=== PATIENT | female | born 1970 | race Caucasian/White ===

== ENCOUNTER → 2024-01-20 | Outpatient (CLI) | payer OTHER, SELFPAY ==
[2024-01-26 14:09] LABS: Age Gdln ACOG Testing 30-65 (.); HPV APTIMA, High Risk Negative (Negative)
[2024-01-26 15:52] LABS: HPV Reflexed? YES, CHARGE PATIENT
== END | disposition home or self-care (01) ==
LOC: LABSPEC 15:48
PROVIDERS: PCP Family Medicine; Referring Provider Family Medicine; Visit Provider Family Medicine
DX: Z12.4 Encounter for screening for malignant neoplasm of cervix (principal)
CPT/HCPCS: 87624; 88175; G0145

== ENCOUNTER → 2024-07-18 | Outpatient (CLI) | payer OTHER, SELFPAY ==
[2024-07-18 12:11] LABS: Absolute Lymphocyte Count 1.85 X10^3/uL (0.83-4.51); Absolute Neutrophil Count 4.3 X10^3/uL (2.0-7.7); Basophil# 0.04 X10^3/uL; Basophil% 0.6 % (0-1); Eosinophil# 0.26 X10^3/uL; Eosinophils% 3.7 % (0-5); Hematocrit 33.1 % (37-47); Hemoglobin 9.7 g/dL (12.0-15.0); Lymphocyte # 1.85 X10^3/ul (0.83-4.51); Lymphocyte % 26.1 % (19-41); Mean Corp Hgb Conc 29.3 g/dL (32-36); Mean Corpuscular Hgb 21.6 pg (27.0-32.0); Mean Corpuscular Volume 73.7 fL (81-99); Mean Platelet Vol. 10.7 fl (6.2-12.0); Monocyte# 0.59 X10^3/uL; Monocyte% 8.3 % (0-10); NRBC Flagged by Analyzer 0 % (0-5); Neutrophil # 4.34 X10^3/uL (2.7-7.7); POSITIVE MORPHOLOGY YES; Platelet Count 338 K/mm3 (150-450); RBC Distribution Width CV 21.7 % (11.6-14.6); RBC Distribution Width SD 57.1 fl (35.1-43.9); Red Blood Count 4.49 M/mm3 (4.2-5.4); White Blood Count 7.1 K/mm3 (4.4-11.0)
[2024-07-18 12:17] LABS: Differential Indicated SCAN CRITERIA MET
[2024-07-18 12:47] LABS: Anisocytosis 2+; Differential Comment SCANNED; Vitamin B12 346 pg/mL (211-911)
[2024-07-18 13:20] LABS: ALB/GLOB Ratio 0.8 RATIO (0.9-2.4); AST(SGOT) 19 U/L (15-37); Alanine Aminotransfer ALT/SGPT 28 U/L (13-56); Albumin, Serum 3.5 g/dL (3.2-5.0); Alkaline Phosphatase 147 U/L (45-117); Anion Gap 6 (5-15); BUN 10 mg/dL (7-18); BUN/Creat Ratio 13.3 RATIO (10-20); Calcium,Total 9.8 mg/dL (8.5-10.1); Chloride 107 mmol/L (98-107); Cholesterol 167 mg/dL (200); Creatinine, Serum 0.75 mg/dL (0.55-1.02); EST Glomerular Filtration Rate 85 mL/min (>60); Est Glom Filt Rate - Afr Amer 103 mL/min (>60); Estradiol < 11.0 pg/mL; Ferritin 4 ng/mL (8-252); Globulin 4.2 g/dL (2.2-4.2); Glucose 95 mg/dL (74-106); High Density Lipoprotein 43 mg/dL; Iron 24 ug/dL (50-170); Iron Binding Capacity,Total 426 ug/dL (250-450); PERCENT IRON SATURATION 5.6 % (15.0-55.0); Protein, Total 7.7 g/dL (6.4-8.2); Sodium Level 140 mmol/L (136-145); Thyroid Stim Hormone (TSH) 0.594 uIU/mL (0.358-3.740); Triglycerides 76 mg/dL; Very Low Density Lipoprotein 15 mg/dL (5-40)
[2024-07-19 08:13] LABS: PROGESTERONE 0.1 ng/mL (.)
== END | disposition home or self-care (01) ==
LOC: BFHLAB 10:41
PROVIDERS: PCP Family Medicine; Referring Provider Family Medicine; Visit Provider Family Medicine
DX: Z00.00 Encounter for general adult medical examination without abnormal findings (principal); N95.1 Menopausal and female climacteric states; D64.9 Anemia, unspecified
CPT/HCPCS: 36415; 80053; 80061; 82607; 82670; 82728; 82746; 83540; 83550; 84144; 84443; 85025

== ENCOUNTER 2024-10-06 08:46 | Day surgery (SDC) | payer OTHER, SELFPAY ==
[2024-10-06] VITALS (7 sets, daily range): BP systolic 109–152; BP diastolic 79–99; PULSE 63–85; RESP 16–18; TEMP 36.1–36.8; O2SAT 94–96; BMI 34.2
--- NOTE | 2024-10-06 09:03 | PCM.PRE.AN2 ---
ASA Classification* ASA Classification ASA Classification: 2 Assessment & Plan Anesthesia* Anesthesia Assessment Anesthesia Assessment: Discussed sedation and/or anesthesia options, risks, benefits, and alternatives with patient/parents/legal guardian/POA. Questions invited. The patient/parents/legal guardian/POA seems to understand and agrees to proceed with anesthesia plan. Reviewed the physical assessment, medical history, allergy history and patient home medications list prior to surgery/procedure/anesthetic and documented any changes. Performed airway and anesthesia risk assessments. Anesthesia Type Anesthesia Type: MAC Anesthesia Focused Assessment* Airway Assessment Mouth opens: >3 cm Mallampati Score: II Focused Labs Anesthesia Preop lab: CBC WBC 7.1 K/mm3 (4.4-11.0) 07/18/24 10:42 RBC 4.49 M/mm3 (4.2-5.4) 07/18/24 10:42 Hgb 9.7 g/dL (12.0-15.0) L 07/18/24 10:42 Hct 33.1 % (37-47) L 07/18/24 10:42 Plt Count 338 K/mm3 (150-450) 07/18/24 10:42 CHEMISTRY Potassium 4.0 mmol/L (3.5-5.1) 07/18/24 10:42 Sodium 140 mmol/L (136-145) 07/18/24 10:42 BUN 10 mg/dL (7-18) 07/18/24 10:42 Creatinine 0.75 mg/dL (0.55-1.02) 07/18/24 10:42 Glucose 95 mg/dL (74-106) 07/18/24 10:42 TSH 0.594 uIU/mL (0.358-3.740) 07/18/24 10:42 COAG Pre-Assessment Diagnosis/Proposed Procedure Planned Operative Procedure(s): EGD/CSCOPE Anesthesia History 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 When Was Last Pacemaker Check QUESTION #4 FULL TEXT: You/Your Family Experience fever (hyperthermia) with Anesthesia Last Oral Intake Last Oral intake: Last Oral Intake NPO since Meds taken in AM with sips of water? 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 Female Yes 10/04/24 11:16 HX of Motion Sickness No 10/04/24 11:16 HX of N/V After Surgery No 10/04/24 11:16 Non-Smoker Yes 10/04/24 11:16 Duration of Surgery greater No 10/04/24 11:16 than 60 minutes Number of Risk Factors 2 10/04/24 11:16 PONV Score Moderate Risk 10/04/24 11:16 Height & Weight Height & Weight: Anesthesia: Height & Weight Height 5 ft 7 in 08/16/24 08:53 Respiratory Assessment Respiratory Assessment - auto fleet maintenance manager: Respiratory Tract Infection Hx - 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 Has anyone observed you stop Yes 10/04/24 11:16 breathing during sleep? STOP Results Positive 10/04/24 11:16 QUESTION #5 FULL TEXT : Do you snore loudly (louder than talking or can be heard through closed doors)? 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 Specify any problems Hx of Preganancy in last 3 No 10/04/24 11:16 Months Nurse Filling Out Transfusion DSCHRIBER 10/04/24 11:16 & Questions: Date: 10/04/24 10/04/24 11:16 Time: 11:18 10/04/24 11:16 Patient unable to answer at this time (ie. confused, unrespo /Reproduction History /Reproductive History - auto fleet maintenance manager: /Reproductive Hx- auto fleet maintenance manager Hx Now No 10/04/24 11:16 Gestational Age (in weeks): EDC: Hx Hx Para Hx Section SAB No 10/04/24 11:16 PFSH Medical History Post-menopausal Wears contact lenses Depression Anxiety Anemia Back pain Injury of head and neck Gastric reflux Non-smoker Shortness of breath on exertion History of edema Arthritis Fatigue Home Medications ?Medication ?Instructions ?Recorded ?Last Taken ?Type ascorbic acid (vitamin C) 500 mg 1,000 mg PO DAILY 08/16/24 Unknown History capsule bupropion HCl 150 mg 24 hr tablet, 150 mg PO QAM 08/16/24 Unknown History extended release (Wellbutrin XL) ferrous sulfate 325 mg (65 mg 325 mg PO QDAY 08/16/24 09/30/24 History iron) tablet (Feosol) loratadine 10 mg tablet (Claritin) 10 mg PO DAILY PRN PRN allergy 08/16/24 Unknown History symptoms magnesium 200 mg tablet 200 mg PO QDAY 08/16/24 10/02/24 History Allergy/AdvReac Type Severity Reaction Status Date / Time Penicillins (PCN) Allergy Severe Swelling Verified 10/04/24 11:14 Sulfa (Sulfonamide Allergy Intermediate Other Verified 10/04/24 11:14 Antibiotics) Family History Father Heart disease Grandmother Heart disease Surgical History History of facial surgery Hx of wisdom tooth extraction History of dental surgery H/O foot surgery History of cholecystectomy Social History Smoking Status: Never smoker alcohol intake: never substance use type: does not use Review of Systems (Anesthesia) ROS Narrative System reviewed and no additional complaints, except as documented.
--- NOTE | 2024-10-06 09:40 | PCM.HP.BLA ---
History and Physical Date of Admission: 10/06/24 Intake Vital Signs 08/16/2408:53 Height 5 ft 7 in Weight: 225 lb BMI 35.2 BP 142/95 H Blood Pressure Location Lt brachial Position Sitting Respiration 17 Pulse 69 Pulse Source Monitor Temp 97 F L Temp Source Temporal Pulse Oximetry (%) 96 Oxygen Delivery Method room air Intake Visit Reasons: ANEMIA - RECTAL BLEEDING Chief Complaint: anemia, rectal bleeding Is patient in pain?: No Allergies Penicillins (PCN) Allergy (Severe, Verified 08/16/24 08:56) SwellingSulfa (Sulfonamide Antibiotics) Allergy (Intermediate, Verified 08/16/24 08:56) Other Medications ?Medication ?Instructions ?Recorded ?Confirmed ?Type ascorbic acid (vitamin C) 500 mg mg PO 08/16/24 08/16/24 History capsule bupropion HCl 150 mg 24 hr tablet, 150 mg PO QAM 08/16/24 08/16/24 History extended release (Wellbutrin XL) ferrous sulfate 325 mg (65 mg 325 mg PO QDAY 08/16/24 08/16/24 History iron) tablet (Feosol) loratadine 10 mg tablet (Claritin) 10 mg PO QDAY 08/16/24 08/16/24 History magnesium 200 mg tablet 200 mg PO QDAY 08/16/24 08/16/24 History PFSH Medical History (Updated 08/16/24 @ 08:49 by Brianda Jimenez) Acid reflux Arthritis Fatigue Surgical History (Updated 08/16/24 @ 08:50 by Brianda Jimenez) H/O foot surgery History of cholecystectomy Family History (Updated 08/16/24 @ 08:50 by Brianda Jimenez) Father Heart diseaseGrandmother Heart disease Social History (Updated 08/16/24 @ 08:53 by Brianda Jimenez) Smoking Status: Never smoker alcohol intake: never substance use type: does not use HPI HPI HPI: Patient is a 53-year-old female here with iron deficiency anemia. The patient has had anemia for several years. She has never had EGD or colonoscopy. She reports seeing gross blood in her stool occasionally but it is bright red and small in volume. She denies nausea or vomiting but does have postprandial pain and GERD. She does not take a PPI. ROS General General: Yes weight change and fatigue; No appetite, colon cancer, breast cancer or weakness HEENT HEENT: Yes eye surgery; No difficulty swallowing, eye injury, swollen glands or hoarseness Endo Endocrine: No thyroid disease, diabetes mellitus, thyroid cancer, Hair loss, heat intolerance or cold intolerance Skin Skin: No rash or changing moles Musc Musculoskeletal: Yes arthritis; No back problems, rheumatoid arthritis, gout or joint pain Cardio Cardiovascular: No murmur, pacemaker, heart disease, atrial fibrillation, high blood pressure, heart attack, heart stent, palpitations, shortness of breat with exertion or chest pain Psych Psychiatric: No depression, anxiety or hearing voices Resp Respiratory: No shortness of breath, Yes sleep apnea, No cough, No COPD, No asthma, No emphysema and No wheezing Gastro Gastrointestinal: No abdominal pain, No nausea or vomiting, No diarrhea, No constipation, Yes blood in stool, Yes acid reflux, Yes hemorrhoids, No ulcers, No gallbladder problem and Yes black,tarry stools Arturo Hematologic: No blood thinners, No blood disorders, No bleeding, No anemia and No blood clots Neuro Neurologic: No system reviewed and no additional complaints, except as documented, No as per HPI, No abnormal gait, No abnormal hearing, No abnormal movements, No abnormal speech, No behavioral changes, No burning sensations, No confusion, No convulsions, No disequilibrium, No dizziness, No localized weakness, No frequent falls, No headache(s), No lack of coordination, No loss of vision, No memory loss, Yes numbness, No other visual disturbances, No radicular pain, No restless legs, No sensory deficit, No syncope, Yes tingling, No tremor(s), No weakness and No other Exam Const General: cooperative Orientation: alert and oriented x3 HENAR Head: normal to inspection Neck Neck: normal visual inspection and full ROM Chest Chest palpation & inspection: normal inspection of the chest Resp Effort & Inspection: normal respiratory effort Auscultation: clear to auscultation bilaterally Cardio Rate: regular rate Rhythm: regular rhythm GI Inspection: non-distended Palpation: soft and nontender Skin General: no rashes or lesions noted Neuro General: patient alert and patient oriented x3 Extrem General: full ROM Psych Appearance: grossly normal Mental Status: mental status grossly normal Assessment and Plan Assessment and Plan (1) Anemia: Status: Acute Plan: Patient is having several issues including pain after eating as well as anemia. She is seeing gross blood in her stool as well. I recommended upper and lower endoscopy to evaluate. She has never had a colonoscopy in the past. I explained endoscopy in detail to the patient. I explained the risks including but not limited to stroke or heart attack with anesthesia, perforation of the GI tract, bleeding, infection. I explained that any of these could necessitate further emergency surgery. The patient understands and all questions were answered sufficiently. The patient wishes to proceed with procedure. Denys Carson MD Pager: [facility] [address] [place] [address] [address] [place] [address] Office: . I have examined the patient and the H&P has been reviewed. There are no clinical changes since date of exam.
--- NOTE | 2024-10-06 10:09 | OP.EGD_ITS ---
Patient Name: Katherine Hanson Procedure Date: 10/06/2024 9:40 AM Date of : 1970 Age: 53 Procedure: Upper GI endoscopy Indications: Epigastric abdominal pain, Heartburn Providers: Denys Carson MD Referring MD: Susan Pompa Medicines: Propofol per Anesthesia Patient Profile: This is a 53 year old female. Refer to note in patient chart for documentation of history and physical. Patient has symptoms. Complications: No immediate complications. Procedure: Pre-Anesthesia Assessment: - Prior to the procedure, a History and Physical was performed, and patient medications and allergies were reviewed. The patient's tolerance of previous anesthesia was also reviewed. The risks and benefits of the procedure and the sedation options and risks were discussed with the patient. All questions were answered, and informed consent was obtained. Prior Anticoagulants: The patient has taken no anticoagulant or antiplatelet agents. After reviewing the risks and benefits, the patient was deemed in satisfactory condition to undergo the procedure. After obtaining informed consent, the endoscope was passed under direct vision. Throughout the procedure, the patient's blood pressure, pulse, and oxygen saturations were monitored continuously. The Colonoscope was introduced through the mouth, and advanced to the second part of duodenum. The upper GI endoscopy was accomplished without difficulty. The patient tolerated the procedure well. Scope In: 9:50:34 AM Scope Out: 9:52:19 AM Total Procedure Duration Time 0 hours 1 minute 45 seconds Findings: The esophagus was normal. The stomach was normal. The examined duodenum was normal. Impression: - Normal esophagus. - Normal stomach. - Normal examined duodenum. - No specimens collected. Recommendation: - Discharge patient to home. - Resume previous diet. - Continue present medications. Procedure Code(s): --- Professional --- 23674, Esophagogastroduodenoscopy, flexible, transoral; diagnostic, including collection of specimen(s) by brushing or washing, when performed (separate procedure) Diagnosis Code(s): --- Professional --- R10.13, Epigastric pain R12, Heartburn CPT copyright 2021 [employer]. All rights reserved. The codes documented in this report are preliminary and upon trimmer sawyer review may be revised to meet current compliance requirements. Denys Carson MD 10/06/2024 10:09:07 AM This report has been signed electronically. Number of Addenda: 0 Note Initiated On: 10/06/2024 9:40 AM
--- NOTE | 2024-10-06 10:09 | OP.CCLET_ITS ---
10/06/2024 Susan Pompa [place] [id number] [address] Re : Upper GI endoscopy procedure for Katherine Wilson Valentin Dear Dr. Pompa This procedure was performed on Sunday, October 06, 2024. My impressions and recommendations are as follows: Impressions : - Normal esophagus. - Normal stomach. - Normal examined duodenum. - No specimens collected. Recommendations : - Discharge patient to home. - Resume previous diet. - Continue present medications. My findings are described in the full procedure note, which is enclosed. If I can be of further assistance, please feel free to contact me at Doctor phone number(s): , Work: . Sincerely, Denys Carson MD 10/06/2024 10:09:07 AM This report has been signed electronically.
--- NOTE | 2024-10-06 10:11 | OP.CCLET_ITS ---
10/06/2024 Susan Pompa [facility] [address] [address] Re : Colonoscopy procedure for Katherine Wilson Valentin Dear Dr. Pompa This procedure was performed on Sunday, October 06, 2024. My impressions and recommendations are as follows: Impressions : - The entire examined colon is normal on direct and retroflexion views. - No specimens collected. Recommendations : - Discharge patient to home. - Resume previous diet. - Continue present medications. - Repeat colonoscopy in 10 years for screening purposes. My findings are described in the full procedure note, which is enclosed. If I can be of further assistance, please feel free to contact me at Doctor phone number(s): , Work: . Sincerely, Denys Carson MD 10/06/2024 10:10:27 AM This report has been signed electronically.
--- NOTE | 2024-10-06 10:11 | OP.COLON_ITS ---
Patient Name: Katherine Hanson Procedure Date: 10/06/2024 9:52 AM Date of : 1970 Age: 53 Procedure: Colonoscopy Indications: Rectal bleeding Providers: Denys Carson MD Referring MD: Susan Pompa Medicines: Propofol per Anesthesia Patient Profile: This is a 53 year old female. Refer to note in patient chart for documentation of history and physical. Patient has symptoms. Last Colonoscopy: none. The patient's first colonoscopy is today. Complications: No immediate complications. Procedure: Pre-Anesthesia Assessment: - Prior to the procedure, a History and Physical was performed, and patient medications and allergies were reviewed. The patient's tolerance of previous anesthesia was also reviewed. The risks and benefits of the procedure and the sedation options and risks were discussed with the patient. All questions were answered, and informed consent was obtained. Prior Anticoagulants: The patient has taken no anticoagulant or antiplatelet agents. After reviewing the risks and benefits, the patient was deemed in satisfactory condition to undergo the procedure. - Prior to the procedure, a History and Physical was performed, and patient medications and allergies were reviewed. The patient's tolerance of previous anesthesia was also reviewed. The risks and benefits of the procedure and the sedation options and risks were discussed with the patient. All questions were answered, and informed consent was obtained. Prior Anticoagulants: The patient has taken no anticoagulant or antiplatelet agents. After reviewing the risks and benefits, the patient was deemed in satisfactory condition to undergo the procedure. After I obtained informed consent, the scope was passed under direct vision. Throughout the procedure, the patient's blood pressure, pulse, and oxygen saturations were monitored continuously. The Colonoscope was introduced through the anus and advanced to the cecum, identified by appendiceal orifice and ileocecal valve. The colonoscopy was performed without difficulty. The patient tolerated the procedure well. The quality of the bowel preparation was good. The ileocecal valve, appendiceal orifice, and rectum were photographed. Scope In: 9:53:23 AM Scope Withdrawal Time 0 hours 6 minutes 6 seconds Scope Out: 10:07:24 AM Total Procedure Duration Time 0 hours 14 minutes 1 second Findings: The entire examined colon appeared normal on direct and retroflexion views. Impression: - The entire examined colon is normal on direct and retroflexion views. - No specimens collected. Recommendation: - Discharge patient to home. - Resume previous diet. - Continue present medications. - Repeat colonoscopy in 10 years for screening purposes. Procedure Code(s): --- Professional --- 98604, Colonoscopy, flexible; diagnostic, including collection of specimen(s) by brushing or washing, when performed (separate procedure) Diagnosis Code(s): --- Professional --- K62.5, Hemorrhage of anus and rectum CPT copyright 2021 [employer]. All rights reserved. The codes documented in this report are preliminary and upon an/syq 13 nav/c2 operator review may be revised to meet current compliance requirements. Denys Carson MD 10/06/2024 10:10:27 AM This report has been signed electronically. Number of Addenda: 0 Note Initiated On: 10/06/2024 9:52 AM
--- NOTE | 2024-10-06 10:14 | PCM.POST.ANE ---
Anesthesia: Postop Eval I Current Vital Signs Temperature: 98 F Pulse Rate: 71 Blood Pressure: 109/79 Respiratory Rate: 16 Pulse Ox: 95 Oxygen Delivery Method: Room Air Assessment Airway patent: Yes Spontaneous unlabored respirations: Yes Mental status: Asleep nausea: No Vomiting: No Anesthesia Complication: No Fluid Hydration Crystalloid volume administer (ml): 60 Total IV fluid infused: 60 Progress Note Anesthesia document: Postop Eval 1 completed: Yes
--- NOTE | 2024-10-06 12:11 | PCM.POSTANE2 ---
Anesthesia Postop Eval I Sum Postop Eval Completion status Anesthesia document: Postop Eval 1 completed: Yes Anesthesia Postop Eval I Summary Anesthesia Postop Eval I Summary: Anesthesia Postop Eval I: Assessment Summary Airway patent Yes 10/06/24 10:15 [email or web address] Spontaneous unlabored Yes 10/06/24 10:15 [email or web address] respirations Mental status Asleep 10/06/24 10:15 [email or web address] nausea No 10/06/24 10:15 [email or web address] Vomiting No 10/06/24 10:15 [email or web address] Anesthesia Postop Eval I: Fluid Summary Crystalloid volume administer 60 10/06/24 10:15 [email or web address] (ml) Colloids volume administered ( ml) Blood Product volume administered (ml) Total IV fluid infused 60 10/06/24 10:15 [email or web address] Anesthesia Postop Eval I: Summary Notes Anesthesia Complication No 10/06/24 10:15 [email or web address] Anesthesia Complication Comment: Post-operative progress note Anesthesia: Postop Eval II Evaluation Mental status: Awake Pain Level: 0 nausea: No Vomiting: No
== END 2024-10-06 11:00 | disposition home or self-care (01) ==
PROVIDERS: PCP Family Medicine; Referring Provider Family Medicine; Visit Provider Surgery
PROC: 0DJD8ZZ Inspection of Lower Intestinal Tract, Via Natural or Artificial Opening Endoscopic (ICD-10-PCS; CPT 45378; principal; 2024-10-06 09:40)
DX: R10.13 Epigastric pain (principal); K21.9 Gastro-esophageal reflux disease without esophagitis; K62.5 Hemorrhage of anus and rectum; D50.9 Iron deficiency anemia, unspecified
CPT/HCPCS: 43235; 45378; A4216; J2405

== ENCOUNTER → 2025-01-02 | Outpatient (CLI) | payer OTHER, SELFPAY | END | disposition home or self-care (01) | LOC: LABSPEC 12:41 | PROVIDERS: PCP Family Medicine; Visit Provider Family Medicine | DX: R10.31 Right lower quadrant pain (principal) ==

== ENCOUNTER → 2025-01-04 | Outpatient (CLI) | payer OTHER, SELFPAY ==
[2025-01-04 17:52] LABS: Absolute Neutrophil Count 6.8 X10^3/uL (2.0-7.7); Basophil# 0.04 X10^3/uL; Basophil% 0.4 % (0-1); Eosinophil# 0.07 X10^3/uL; Eosinophils% 0.8 % (0-5); Hematocrit 41.1 % (37-47); Hemoglobin 13.2 g/dL (12.0-15.0); Lymphocyte % 18.5 % (19-41); Mean Corp Hgb Conc 32.1 g/dL (32-36); Mean Corpuscular Volume 80.9 fL (81-99); Mean Platelet Vol. 10.5 fl (6.2-12.0); Monocyte# 0.58 X10^3/uL; Monocyte% 6.3 % (0-10); NRBC Flagged by Analyzer 0 % (0-5); Neutrophil # 6.79 X10^3/uL (2.7-7.7); Neutrophil % 73.8 % (47-70); Platelet Count 322 K/mm3 (150-450); RBC Distribution Width CV 17.3 % (11.6-14.6); RBC Distribution Width SD 51.1 fl (35.1-43.9); Red Blood Count 5.08 M/mm3 (4.2-5.4); White Blood Count 9.2 K/mm3 (4.4-11.0)
[2025-01-04 18:31] LABS: Ferritin 16 ng/mL (22-378); Iron 24 ug/dL (50-170); Iron Binding Capacity,Total 319 ug/dL (250-450); Iron Binding Capacity,Unsat 295 ug/dL (228-428)
== END | disposition home or self-care (01) ==
LOC: BFHLAB 16:17
PROVIDERS: PCP Family Medicine; Visit Provider Family Medicine
DX: D50.9 Iron deficiency anemia, unspecified (principal); R10.31 Right lower quadrant pain
CPT/HCPCS: 36415; 82728; 83540; 83550; 85025; 87491; 87591

== ENCOUNTER → 2025-01-22 | Outpatient (CLI) | payer OTHER, SELFPAY ==
--- NOTE | 2025-01-22 08:23 | BI_ITS ---
EXAM: SCRN MAMM (CAD)W/ADAM BILAT 01/22/2025 CLINICAL HISTORY: F, Age 54 y/o , SCREENING TECHNIQUE: Bilateral screening digital breast tomosynthesis with 2D and 3D images. Computer aided detection. COMPARISON: Prior exam(s) dated 11/07/2019. FINDINGS: TISSUE DENSITY: The breast tissue is composed of scattered area of fibroglandular density. Bilateral Breast Mammographic Findings: There is a group of calcifications in the upper inner left breast at anterior depth. No significant masses, calcifications or other abnormalities are identified in the right breast. BI/SCRN MAMM (CAD)W/ADAM BILAT IMPRESSION: The group of calcifications in the upper inner left breast at anterior depth re quires further evaluation. Recommend diagnostic mammogram with spot magnification views. Right Breast: BIRADS 1 NEGATIVE. Left Breast: BIRADS 0 Incomplete: Need additional imaging evaluation and/or pr ior mammograms for comparison.. OVERALL FINAL ASSESSMENT: BIRADS 0 Incomplete: Need additional imaging evaluati on and/or prior mammograms for comparison.. RECOMMENDATION: Recommendation: Magnification views. A letter with findings and recommendations will be mailed to the patient. Reading Location: [id number]
== END | disposition home or self-care (01) ==
LOC: OPBI 08:22
PROVIDERS: PCP Family Medicine; Referring Provider Family Medicine; Visit Provider Family Medicine
DX: Z12.31 Encounter for screening mammogram for malignant neoplasm of breast (principal)
CPT/HCPCS: 77063; 77067

== ENCOUNTER → 2025-02-02 | Outpatient (CLI) | payer OTHER, SELFPAY ==
--- NOTE | 2025-02-02 14:25 | BI_ITS ---
EXAM: DIAG MAMM W/CAD, UNILAT 02/02/2025 CLINICAL HISTORY: 54-year-old female presents for left breast findings seen examination 01/22/2025. No family history of breast cancer. TECHNIQUE: Bilateral Diagnostic digital breast tomosynthesis with 2D and 3D images. Computer aided detection. COMPARISON: Prior exam(s) dated 01/22/2025, 11/07/2019. FINDINGS: TISSUE DENSITY: The breast tissue is composed of scattered area of fibroglandular density. Left breast Mammographic Findings: There is a small group of fine pleomorphic calcifications in the upper inner left breast at anterior depth, measuring up to 0.8 cm in span. BI/DIAG MAMM W/CAD, UNILAT IMPRESSION: The small group of fine pleomorphic calcifications in the upper inner left [address] at anterior depth requires further evaluation. Recommend tissue sampling with stereotactic/tomosynthesis guided core needle bi opsy. Left Breast: BIRADS 4C SUSPICIOUS ABNORMALITY-High suspicion for malignancy (5 0-95% likelihood of cancer). OVERALL FINAL ASSESSMENT: BIRADS 4C SUSPICIOUS ABNORMALITY-High suspicion for m alignancy (50-95% likelihood of cancer). RECOMMENDATION: Biopsy is recommended. A letter with findings and recommendations will be mailed to the patient. Reading Location: [id number]
== END | disposition home or self-care (01) ==
LOC: OPBI 14:21
PROVIDERS: PCP Family Medicine; Referring Provider Family Medicine; Visit Provider Family Medicine
DX: R92.1 Mammographic calcification found on diagnostic imaging of breast (principal)
CPT/HCPCS: 77065

== ENCOUNTER → 2025-02-12 | Outpatient (CLI) | payer OTHER, SELFPAY ==
--- NOTE | 2025-02-12 09:30 | BRBX_PTH ---
PATIENT: DELILAH GORDON LOC: [facility] U#:[id number] AGE/SX: 54/F ROOM: RE02/12/[address]: Dr. Denys Carson MD : 1970 BED: DIS: 02/12/2025 SPEC #: [id number] RECD: 02/12/25 11:08 STATUS: FIGUEROA REJeannette #: [id number] MENDOZA: 02/12/25 09:[address]: Denys Carson DEPT: SURGICAL PATHOLOGY RECD BY: Kulwant Ellison ENTERED: 02/12/25 11:08 SP TYPE: BREAST BX OTHR DR: Dr. Susan Pompa MD Tissues: A - Left breast, NOS Procedures: Immunohistochemical Stains Surgery Specimen Level IV IHC Stain ADDITIONAL HEADER OPERATION: Left breast stereotactic biopsy PRE-OP DIAGNOSIS: Left breast calcifications upper inner anterior depth TISSUE SUBMITTED: A- Left breast core tissue Ischemic Time: 2 minute Fixation Time: 10.5 hours MICROSCOPIC DIAGNOSIS A. Left breast, calcifications, core biopsy: * Atypical ductal hyperplasia. * Calcifications present. * IHC for CK5/6, calponin, ER, and p40 support the diagnosis - see Comment. COMMENT The slides/images were reviewed in intradepartmental consultation by Dr Stanford Paz and Dr Macrina Storey ([facility] pathology division, [facility]). MICROSCOPIC DESCRIPTION Slides are reviewed. All matched controls reacted appropriately. These tests were developed and their performance characteristics determined by [facility]. They may not have been cleared or approved by the U.S. Food and Drug Administration. The FDA has determined that such clearance or approval is not necessary.? The above immunohistochemical/dualISH?markers are ordered and reviewed by the Pathologist. GROSS DESCRIPTION A. Received in formalin in a container labeled with the patient's name, date of , and left are approximately 3 maldonado-yellow core biopsies of fibrofatty tissue ranging from 1.7 x 0.5 cm to 2.2 x 0.5 cm. There are multiple core biopsy fragments measuring 2.0 x 1.4 x 0.3 cm in aggregate. The specimen is submitted in toto as follows:A1-3. 1 core per cassetteA4. Core biopsy fragments Total formalin fixation time: Between 6 and 72 hours. [facility] 02-12-2025 CPT:64895,01644, 88103q4
--- NOTE | 2025-02-12 09:32 | PCM.OPRPT ---
Operative Report (Standard) Operative Information Date of Procedure: 02/12/25 Pre-Operative Diagnosis: Left breast microcalcifications Post-Operative Diagnosis: Same Surgery/Procedure Performed: Stereotactic guided left breast core needle biopsy with placement of clip production control coordinating clerk: No Type of Anesthesia: Local Procedure Start Time: : Procedure Stop Time: Select all DRAINS/GRAFTS/IMPLANTS that apply: None Estimated Blood Loss: 10 Specimen collected: Yes Description of specimen(s) removed: Left breast biopsy Description of surgery: Patient was brought to the stereotactic room and placed in the stereotactic table and the microcalcifications were localized with stereotactic views. The microcalcifications were targeted using the computer and then the needle was set up. The skin was prepped. The skin was injected with local anesthetic. A small veronica was made with a scalpel and the needle was placed into the breast and fired. Stereotactic images were once again obtained that showed that this was in good position. Next biopsies were obtained and the specimens were x-rayed. The specimen showed the microcalcifications. The clip was then placed into the breast and the needle was removed. Pressure was held to maintain hemostasis. Next a Steri-Strip and bandage were placed over the incision. Mammogram images were obtained after the biopsy. Surgical Findings: Left breast microcalcifications Complications Complications: No
== END | disposition home or self-care (01) ==
PROVIDERS: PCP Family Medicine; Referring Provider Surgery; Visit Provider Surgery
DX: N60.92 Unspecified benign mammary dysplasia of left breast (principal)
CPT/HCPCS: 19081; 88305; 88341; 88342

== ENCOUNTER → 2025-03-27 | Outpatient (CLI) | payer OTHER, SELFPAY | END | disposition home or self-care (01) | LOC: MTLAB 15:07 | PROVIDERS: PCP Family Medicine; Referring Provider Nurse Practitioner Family; Visit Provider Nurse Practitioner Family | DX: N39.0 Urinary tract infection, site not specified (principal) | CPT/HCPCS: 87086 ==

== ENCOUNTER 2025-03-28 09:58 | Day surgery (SDC) | payer OTHER, SELFPAY ==
[2025-03-28] VITALS (9 sets, daily range): BP systolic 142–159; BP diastolic 85–108; PULSE 67–89; RESP 16–18; TEMP 36.1–36.6; O2SAT 94–100; BMI 30.8
--- NOTE | 2025-03-28 10:16 | PCM.PRE.AN2 ---
ASA Classification* ASA Classification ASA Classification: 2 Assessment & Plan Anesthesia* Anesthesia Assessment Anesthesia Assessment: Discussed sedation and/or anesthesia options, risks, benefits, and alternatives with patient/parents/legal guardian/POA. Questions invited. The patient/parents/legal guardian/POA seems to understand and agrees to proceed with anesthesia plan. Reviewed the physical assessment, medical history, allergy history and patient home medications list prior to surgery/procedure/anesthetic and documented any changes. Performed airway and anesthesia risk assessments. Anesthesia Type Anesthesia Type: General Anesthesia Focused Assessment* Airway Assessment Mouth opens: >3 cm Mallampati Score: II Labs Anesthesia Preop lab: CBC WBC 9.2 K/mm3 (4.4-11.0) 01/04/25 16:19 01/04/25 RBC 5.08 M/mm3 (4.2-5.4) 01/04/25 16:19 01/04/25 Hgb 13.2 g/dL (12.0-15.0) 01/04/25 16:19 01/04/25 Hct 41.1 % (37-47) 01/04/25 16:19 01/04/25 Plt Count 322 K/mm3 (150-450) 01/04/25 16:19 01/04/25 CHEMISTRY Potassium 4.0 mmol/L (3.5-5.1) 07/18/24 10:42 07/18/24 Sodium 140 mmol/L (136-145) 07/18/24 10:42 07/18/24 BUN 10 mg/dL (7-18) 07/18/24 10:42 07/18/24 Creatinine 0.75 mg/dL (0.55-1.02) 07/18/24 10:42 07/18/24 Glucose 95 mg/dL (74-106) 07/18/24 10:42 07/18/24 TSH 0.594 uIU/mL (0.358-3.740) 07/18/24 10:42 07/18/24 COAG Pre-Assessment Diagnosis/Proposed Procedure Planned Operative Procedure(s): (L) Breast, Lumpectomy, NL left stereo wire localization lumpectomy Anesthesia History 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 When Was Last Pacemaker Check QUESTION #4 FULL TEXT: You/Your Family Experience fever (hyperthermia) with Anesthesia Last Oral Intake Last Oral intake: Last Oral Intake NPO since Meds taken in AM with sips of water? Meds patient instructed to take am of surgery PONV PONV - guitar instructor: PONV - guitar instructor Female Yes 03/14/25 15:04 HX of Motion Sickness No 03/14/25 15:04 HX of N/V After Surgery No 03/14/25 15:04 Non-Smoker Yes 03/14/25 15:04 Duration of Surgery greater No 03/14/25 15:04 than 60 minutes Number of Risk Factors 2 03/14/25 15:04 PONV Score Moderate Risk 03/14/25 15:04 Height & Weight Height & Weight: Anesthesia: Height & Weight Height 5 ft 7 in 03/02/25 10:23 Respiratory Assessment Respiratory Assessment - guitar instructor: Respiratory Tract Infection Hx - guitar instructor Hx Respiratory Tract Infection No 03/14/25 15:04 STOP Sleep Apnea STOP Sleep Apnea - guitar instructor: STOP Sleep Apnea - guitar instructor Hx Hypertension No 03/14/25 15:04 Hx Sleep Apnea No 03/14/25 15:04 CPAP BIPAP Do you snore loudly (louder No 03/14/25 15:04 than talking or can be heard Do you often feel tired/ No 03/14/25 15:04 fatigued/ sleepy during daytime? Has anyone observed you stop No 03/14/25 15:04 breathing during sleep? STOP Results Negative 03/14/25 15:04 QUESTION #5 FULL TEXT : Do you snore loudly (louder than talking or can be heard through closed doors)? Tobacco Use History Tobacco Use History - guitar instructor: Tobacco Use History - guitar instructor Tobacco Use Smoking Status Never smoker 03/14/25 15:04 Hx Tobacco Use No 03/14/25 15:04 Years Smoking Packs Smoked per Day Smoking Cessation Date was within the last 15 years Hx Smoking Cessation Date Hx Smoking Cessation Counseling Hematologic Medial History Hematologic Hx - guitar instructor: Hematologic Medical Hx - project manager Hx of Blood Transfusion No 03/14/25 15:04 Hx of Transfusion in last 3 No 03/14/25 15:04 Months Date of Last Transfusion (if within last 3 months) Ever experience any problems No 03/14/25 15:04 with transfusion(s)? Specify any problems Hx of Preganancy in last 3 No 03/14/25 15:04 Months Nurse Filling Out Transfusion VCHRISTIN 03/14/25 15:04 & Questions: Date: 03/14/25 03/14/25 15:04 Time: 15:03/14/25 15:04 Patient unable to answer at this time (ie. confused, unrespo /Reproduction History /Reproductive History - guitar instructor: /Reproductive Hx- guitar instructor Hx Now No 03/14/25 15:04 Gestational Age (in weeks): EDC: Hx Hx Para Hx Section SAB No 03/14/25 15:04 Active Medications Active Medications: Current Medications Generic Name Dose Route Start Last Admin Trade Name Freq PRN Reason Stop Dose Admin Clindamycin Phosphate 900 mg in 50 mls @ 75 mls/hr 03/28/25 11:30 Cleocin IV 03/28/25 12:09 INTRAOP ONE Lactated Ringer's 1,000 mls @ 15 mls/hr 03/28/25 10:15 IV .Q48H ANAY PFSH Medical History Microcalcification of left breast on mammogram Post-menopausal Wears contact lenses Depression Anxiety Anemia Back pain Injury of head and neck Gastric reflux Non-smoker Shortness of breath on exertion History of edema Arthritis Fatigue Home Medications ?Medication ?Instructions ?Recorded ?Last Taken ?Type bupropion HCl 150 mg 24 hr tablet, 150 mg PO QAM 08/16/24 Unknown History extended release (Wellbutrin XL) loratadine 10 mg tablet (Claritin) 10 mg PO DAILY PRN PRN allergy 08/16/24 Unknown History symptoms magnesium 200 mg tablet 200 mg PO QDAY 08/16/24 10/02/24 History cyanocobalamin-liver extract tablet 3 tab PO QWEEK 03/14/25 Unknown History Allergy/AdvReac Type Severity Reaction Status Date / Time Penicillins (PCN) Allergy Severe Swelling Verified 03/14/25 14:59 Sulfa (Sulfonamide Allergy Intermediate Other Verified 03/14/25 14:59 Antibiotics) Family History Father Heart disease Grandmother Heart disease Surgical History Hx of colonoscopy History of facial surgery Hx of wisdom tooth extraction History of dental surgery H/O foot surgery History of cholecystectomy Social History Smoking Status: Never smoker alcohol intake: never substance use type: does not use Review of Systems (Anesthesia) ROS Narrative System reviewed and no additional complaints, except as documented.
--- NOTE | 2025-03-28 10:39 | BI_ITS ---
EXAM: NEEDLE LOC 1ST LESION 03/28/2025 CLINICAL HISTORY: F, Age 54 y/o, needle localization. TECHNIQUE: Needle localization was performed. COMPARISON: Prior exam(s) dated February 12, 2025.. FINDINGS: Needle localization of the tissue clip marker in the medial anterior aspect of the left breast. BI/Needle Loc 1st Lesion IMPRESSION: Needle exaggeration of the tissue clip marker in the medial anterior aspect of the left breast. Reading Location: [facility]
--- NOTE | 2025-03-28 10:39 | BI_ITS ---
EXAM: BREAST BIOPSY SPECIMEN 03/28/2025 CLINICAL HISTORY: F, Age 54 y/o, needle localization. TECHNIQUE: Specimen radiograph. COMPARISON: Prior exam(s) dated . FINDINGS: Radiograph of the operative specimen was obtained. The calcifications in tissue clip marker is seen. BI/Breast Biopsy Specimen IMPRESSION: Tissue clip marker is seen within the operative specimen. A letter with findings and recommendations will be mailed to the patient. Reading Location: [place] [address]
[2025-03-28] MEDS: Lactated Ringers 1,000 ML 15 ML IV (10:45)
--- NOTE | 2025-03-28 11:00 | PCM.HP.BLA ---
History and Physical Date of Admission: 03/28/25 Intake Vital Signs 02/08/2513:53 03/02/2510:23 Height 5 ft 7 in 5 ft 7 in Weight: 195 lb 2 oz 196 lb BMI 30.5 30.7 BP 116/90 H 139/91 H Blood Pressure Location Rt brachial Rt brachial Position Sitting Sitting Respiration 17 17 Pulse 75 80 Pulse Source Monitor Monitor Temp 97.5 F L 97.6 F L Temp Source Temporal Temporal Pulse Oximetry (%) 96 96 Oxygen Delivery Method room air room air Intake Visit Reasons: DISCUSS BREAST SURGERY Chief Complaint: discuss breast surgery Is patient in pain?: No Allergies Penicillins (PCN) Allergy (Severe, Verified 03/02/25 10:24) SwellingSulfa (Sulfonamide Antibiotics) Allergy (Intermediate, Verified 03/02/25 10:24) Other Medications ?Medication ?Instructions ?Recorded ?Confirmed ?Type ascorbic acid (vitamin C) 500 mg 1,000 mg PO DAILY 08/16/24 03/02/25 History capsule bupropion HCl 150 mg 24 hr tablet, 150 mg PO QAM 08/16/24 03/02/25 History extended release (Wellbutrin XL) ferrous sulfate 325 mg (65 mg 325 mg PO QDAY 08/16/24 03/02/25 History iron) tablet (Feosol) loratadine 10 mg tablet (Claritin) 10 mg PO DAILY PRN PRN allergy 08/16/24 03/02/25 History symptoms magnesium 200 mg tablet 200 mg PO QDAY 08/16/24 03/02/25 History PFSH Medical History Microcalcification of left breast on mammogram Post-menopausal Wears contact lenses Depression Anxiety Anemia Back pain Injury of head and neck Gastric reflux Non-smoker Shortness of breath on exertion History of edema Arthritis Fatigue Surgical History History of facial surgery Hx of wisdom tooth extraction History of dental surgery H/O foot surgery History of cholecystectomy Family History Father Heart diseaseGrandmother Heart disease Social History Smoking Status: Never smoker alcohol intake: never substance use type: does not use HPI HPI HPI: Patient is a 54-year-old female here for atypia during her stereotactic biopsy. She notes that she did get a hematoma after the biopsy but it is shrinking. ROS General General: Yes weight change and fatigue; No appetite, colon cancer, breast cancer or weakness HEENT HEENT: Yes eye surgery; No difficulty swallowing, eye injury, swollen glands or hoarseness Endo Endocrine: No thyroid disease, diabetes mellitus, thyroid cancer, Hair loss, heat intolerance or cold intolerance Skin Skin: No rash or changing moles Breast Breast: Yes abnormal mammogram; No left breast lump, right breast lump, nipple discharge, breast pain, abnormal US or breast enlargement Musc Musculoskeletal: Yes arthritis; No back problems, rheumatoid arthritis, gout or joint pain Cardio Cardiovascular: No murmur, pacemaker, heart disease, atrial fibrillation, high blood pressure, heart attack, heart stent, palpitations, shortness of breath with exertion or chest pain Psych Psychiatric: No depression, anxiety or hearing voices Resp Respiratory: No shortness of breath, Yes sleep apnea, No cough, No COPD, No asthma, No emphysema and No wheezing Gastro Gastrointestinal: No abdominal pain, No nausea or vomiting, No diarrhea, No constipation, Yes blood in stool, Yes acid reflux, Yes hemorrhoids, No ulcers, No gallbladder problem and Yes black,tarry stools Arturo Hematologic: No blood thinners, No blood disorders, No bleeding, No anemia and No blood clots Neuro Neurologic: No system reviewed and no additional complaints, except as documented, No as per HPI, No abnormal gait, No abnormal hearing, No abnormal movements, No abnormal speech, No behavioral changes, No burning sensations, No confusion, No convulsions, No disequilibrium, No dizziness, No localized weakness, No frequent falls, No headache(s), No lack of coordination, No loss of vision, No memory loss, Yes numbness, No other visual disturbances, No radicular pain, No restless legs, No sensory deficit, No syncope, Yes tingling, No tremor(s), No weakness and No other Exam Const General: cooperative Orientation: alert and oriented x3 HENMT Head: normal to inspection Neck Neck: normal visual inspection and full ROM Chest Chest palpation & inspection: normal inspection of the chest Resp Effort & Inspection: normal respiratory effort Auscultation: clear to auscultation bilaterally Cardio Rate: regular rate Rhythm: regular rhythm GI Inspection: non-distended Palpation: soft and nontender Skin General: no rashes or lesions noted Neuro General: patient alert and patient oriented x3 Extrem General: full ROM Psych Appearance: grossly normal Mental Status: mental status grossly normal Assessment and Plan Assessment and Plan (1) Atypical ductal hyperplasia of left breast: Status: Acute Plan: The patient had stereotactic biopsy of microcalcifications. This came back with microcalcifications along with atypical ductal hyperplasia. Given the fact that there was atypia I recommended excisional biopsy with stereotactic guided wire localization. I discussed the procedure thoroughly with her. I also discussed possibility of having to bring her back for margins and lymph node if this comes back malignant. I discussed the risks including but not limited to bleeding, infection, need for further surgery. Patient understands all the risks and is willing to proceed. Denys Carson MD Pager: [facility] [address] [place] [address], [address] [place] [address] Office: I have examined the patient and the H&P has been reviewed. There are no clinical changes since date of exam.
--- NOTE | 2025-03-28 11:30 | BREAST_PTH ---
PATIENT: DELILAH GORDON LOC: [facility] [place] [facility] U#:[id number] AGE/SX: 54/F ROOM: RE03/28/[address]: Dr. Denys Carson MD : 1970 BED: DIS: 03/28/2025 SPEC #: [id number] RECD: 03/28/25 12:18 STATUS: FIGUEROA REQ #: [id number] MENDOZA: 03/28/25 11:[address]: Denys Carson DEPT: SURGICAL PATHOLOGY RECD BY: Kulwant Ellison ENTERED: 03/28/25 13:26 SP TYPE: BREAST OTHR DR: Dr. Susan Pompa MD Tissues: A - Left breast, NOS Procedures: Immunohistochemical Stains Surgery Specimen Level V IHC Stain ADDITIONAL HEADER OPERATION: Breast, NL left stereo wire localization lumpectomy PRE-OP DIAGNOSIS: Atypical ductal hyperplasia of left breast TISSUE SUBMITTED: A- Left breast tissue *short tag- superior, long tag - lateral* Ischemic Time: 15 minute Fixation Time: 8 hours MICROSCOPIC DIAGNOSIS A. Breast, left, lumpectomy: * Focal atypical ductal hyperplasia with microcalcifications - see note. * Focal biopsy site changes. * Focal apocrine metaplasia. * Note: IHCs for CK5/6 and p40 support the histologic impression. ER is diffusely and strongly positive. MICROSCOPIC DESCRIPTION Slides are reviewed. All matched controls reacted appropriately. These tests were developed and their performance characteristics determined by [facility]. They may not have been cleared or approved by the U.S. Food and Drug Administration. The FDA has determined that such clearance or approval is not necessary.? The above immunohistochemical/dualISH?markers are ordered and reviewed by the Pathologist. GROSS DESCRIPTION A. Received fresh and subsequently placed in formalin labeled the patient's name and date of . Designated as left breast tissue short tag superior, long tag lateral is a 6.0 x 4.8 x 2.0 cm lumpectomy with an exposed localization wire on the posterior aspect. There is a short suture designated as superior and a long suture designated as lateral. The specimen is inked as follows: Superior: Red Inferior: Blue Anterior: Green Posterior: Black Medial: Yellow Lateral: Nobles The specimen is serially sectioned from posterior to anterior into 8 slices revealing a biopsy cavity containing a barbell clip in slice #5. There is fibrosis surrounding the biopsy cavity spanning from slice #4 to slice #6. The biopsy cavity with surrounding fibrosis is located the following distances from the margins: Lateral: <0.1 cm Inferior: <0.1 cm Superior: 1.4 cm Anterior: 1.8 cm Medial: 2.5 cm Posterior: >4.0 cm No definitive masses are grossly appreciated. The remainder of the cut surfaces are maldonado-yellow fibrofatty (90% fatty, 10% fibrotic). Architectural Drafter sections are submitted, sequentially from posterior to anterior (per diagram) in 8 cassettes as follows: A1: Slice #1, posterior margin, perpendicular A2: Slice #2, fibrosis with lateral/inferior/superior margins A3: Slice #3, fibrosis with inferior/superior margins A4: Slice #4, fibrosis with lateral/inferior/superior margins A5: Slice #5, biopsy site and fibrosis to lateral/inferior margins A6: Slice #5, lateral/superior/medial margins A7: Slice #6, fibrosis adjacent (anterior) to mass to lateral/inferior/superior margins A8: Slice #8, anterior margin, perpendicular Cold ischemic time: 15 minutes Formalin fixation time: 31 hours, 10 minutes [facility] 03/29/2025 CPT:68244,[id number]
[2025-03-28] MEDS: Clindamycin 900 MG/50 ML BAG 75 MG IV (11:52)
[2025-03-28] MEDS: Bupivacaine 0.25% 30 ML Vial (11:58)
--- NOTE | 2025-03-28 12:31 | PCM.POST.ANE ---
Anesthesia: Postop Eval I Current Vital Signs Temperature: 97.2 F Pulse Rate: 83 Blood Pressure: 149/101 Respiratory Rate: 16 Pulse Ox: 94 Oxygen Delivery Method: Room Air Assessment Airway patent: Yes Spontaneous unlabored respirations: Yes Mental status: Awake and Calm nausea: No Vomiting: No Anesthesia Complication: No Fluid Hydration Crystalloid volume administer (ml): 800 Total IV fluid infused: 800 Progress Note Anesthesia document: Postop Eval 1 completed: Yes
--- NOTE | 2025-03-28 13:07 | OP.PCM_ITS ---
Operative Report (Standard) Operative Information Date of Procedure: 03/28/25 Pre-Operative Diagnosis: Left breast atypical ductal hyperplasia Post-Operative Diagnosis: Same Surgery/Procedure Performed: 1. Stereotactic wire localization of left breast l esion 2. Lumpectomy of left breast roving changer: Yes Crane Manager: Sarah Lee Tasks completed by personal injury legal assistant: Opening and Closing Type of Anesthesia: General/Regional RN Documented Start/Stop Times: Operation Date: 03/28/25 11:30 Case Time Into Pre-Op 03/28/25 10:13 Out of Pre-Op 03/28/25 11:36 Anesthesia Start 03/28/25 11:40 Into Room 03/28/25 11:40 Procedure Start 03/28/25 11:58 Procedure End 03/28/25 12:16 Anesthesia End 03/28/25 12:24 Out of Room 03/28/25 12:24 Into Recovery 03/28/25 12:27 Procedure Start Time: 11:58 Procedure Stop Time: 12:16 Select all DRAINS/GRAFTS/IMPLANTS that apply: None Estimated Blood Loss: 5 Specimen collected: Yes Description of specimen(s) removed: Left breast mass Description of surgery: Patient was brought to the stereotactic room and placed in the stereotactic table. Images were obtained of the left breast and the clip was localized using the computer. Stereotactic images were obtained. Next the skin was prepped and injected with local anesthetic. The wire was placed into the mass under stereotactic guidance. Next mammogram was obtained which showed the wire in good position. Patient was then brought to the operating room and general anesthesia was induced. The left breast was prepped and draped in usual sterile fashion. A curvilinear incision was marked outside the nipple and injected with local anesthetic. Incision was then made and deepened to the subcutaneous fat. The wire was brought into the incision. Flaps were raised on either side using electrocautery. The mass was grasped and the area surrounding it was dissected free using electrocautery. The area was marked and sent for x-ray which confirmed the clip and microcalcifications were removed. Next the cavity was irrigated and suctioned dry and hemostasis was obtained using electrocautery. Incision was closed with interrupted 3-0 Vicryl sutures and a running 4-0 Monocryl suture. Dermabond was applied. Fluffs and a surgical bra were applied. Patient was taken to PACU in stable condition. Surgical Findings: Clip and wire intact on specimen mammogram Complications Complications: No Admit VTE Documentation VTE Mechan Device Prophylaxis: SCD's
--- NOTE | 2025-03-28 13:10 | DCINST_ITS ---
Discharge Instructions Diet Discharge Diet: No restrictions Activity Discharge Activity: May Not Drive (for 2-3 days or while taking narcotic pain medications.) and May Shower May shower in (days): 1 Lifting Restrictions: 15 lbs for 1 week Additional Activity Instructions:: Alternate ibuprofen and Tylenol for pain control, oxycodone for breakthrough pain Dressing / Incision Call your doctor if your incision/area has: Continuous Slow Oozing, Sudden Increased Bleeding, Increased Pain/ Swelling, Increased Redness, Foul Smelling Discharge and Swelling at the incision site Call your doctor if you observe: Fever of 101 or Higher Suture Line Care: Avoid Pulling/Pushing and Avoid Pinching/Bending Cleanse incision/area with: Soap & Water Additional Dressing/Incision Instructions:: Remove bulky dressing tomorrow. Follow Up Care Please Follow Up With: Denys Carson MD When: Please call to schedule 2 week follow up appointment. [phone] Test Results: Test results from this visit will be discussed in further detail at your follow- up appointment, if applicable. Discharge Plan Admission Attending Provider: Denys Carson Primary Care Provider: Susan Pompa Instructions Print Language: Turkish Discharge Orders/Prescriptions Prescriptions: New oxycodone 5 mg tablet 5 - 10 mg PO Q6H PRN (Reason: pain) 5 Days Qty: 14 0RF No Action bupropion HCl [Wellbutrin XL] 150 mg tablet extended release 24 hr 150 mg PO QAM magnesium 200 mg tablet 200 mg PO QDAY loratadine [Claritin] 10 mg tablet 10 mg PO DAILY PRN PRN (Reason: allergy symptoms) cyanocobalamin-liver extract Tablet 3 tab PO QWEEK cranberry 500 mg capsule 1,000 mg PO QDAY PRN (Reason: urinary tract irritation) Rx Instructions: administer with a meal Referrals / Follow Up: Susan Pompa MD [Primary Care Provider] - Disposition Disposition (needs filled in before D/C Order can be placed): Home, Self Care
--- NOTE | 2025-03-28 13:54 | POSTOPAN2_ITS ---
Anesthesia Postop Eval I Sum Postop Eval Completion status Anesthesia document: Postop Eval 1 completed: Yes Anesthesia Postop Eval I Summary Anesthesia Postop Eval I Summary: Anesthesia Postop Eval I: Assessment Summary Airway patent Yes 03/28/25 12:33 HEALTH CARE LEGAL ASSISTANT.[email or web address] Spontaneous unlabored Yes 03/28/25 12:33 HEALTH CARE LEGAL ASSISTANT.JDEF respirations Mental status Awake,Calm 03/28/25 12:33 HEALTH CARE LEGAL ASSISTANT.JDEF nausea No 03/28/25 12:33 HEALTH CARE LEGAL ASSISTANT.JDEF Vomiting No 03/28/25 12:33 HEALTH CARE LEGAL ASSISTANT.JDEF Anesthesia Postop Eval I: Fluid Summary Crystalloid volume administer 800 03/28/25 12:33 HEALTH CARE LEGAL ASSISTANT.JDEF (ml) Colloids volume administered ( ml) Blood Product volume administered (ml) Total IV fluid infused 800 03/28/25 12:33 HEALTH CARE LEGAL ASSISTANT.JDEF Anesthesia Postop Eval I: Summary Notes Anesthesia Complication No 03/28/25 12:33 HEALTH CARE LEGAL ASSISTANT.JDEF Anesthesia Complication Comment: Post-operative progress note Anesthesia: Postop Eval II Evaluation Mental status: Awake Pain Level: 0 nausea: No Vomiting: No
--- NOTE | 2025-03-28 13:54 | PCM.POSTANE2 ---
Anesthesia Postop Eval I Sum Postop Eval Completion status Anesthesia document: Postop Eval 1 completed: Yes Anesthesia Postop Eval I Summary Anesthesia Postop Eval I Summary: Anesthesia Postop Eval I: Assessment Summary Airway patent Yes 03/28/25 12:33 LAY OUT [email or web address] Spontaneous unlabored Yes 03/28/25 12:33 LAY OUT DRAFTER.JDEF respirations Mental status Awake,Calm 03/28/25 12:33 LAY OUT DRAFTER.JDEF nausea No 03/28/25 12:33 LAY OUT DRAFTER.JDEF Vomiting No 03/28/25 12:33 LAY OUT DRAFTER.JDEF Anesthesia Postop Eval I: Fluid Summary Crystalloid volume administer 800 03/28/25 12:33 LAY OUT DRAFTER.JDEF (ml) Colloids volume administered ( ml) Blood Product volume administered (ml) Total IV fluid infused 800 03/28/25 12:33 LAY OUT DRAFTER.JDEF Anesthesia Postop Eval I: Summary Notes Anesthesia Complication No 03/28/25 12:33 LAY OUT DRAFTER.JDEF Anesthesia Complication Comment: Post-operative progress note Anesthesia: Postop Eval II Evaluation Mental status: Awake Pain Level: 0 nausea: No Vomiting: No
[2025-03-28] MEDS: oxyCODONE 5 MG Tablet PO (14:06)
== END 2025-03-28 14:50 | disposition home or self-care (01) ==
LOC: SDC 09:58 → AC 09:59
PROVIDERS: PCP Family Medicine; Referring Provider Surgery; Visit Provider Surgery
PROC: (CPT 19301; principal; 2025-03-28 11:15)
DX: N60.82 Other benign mammary dysplasias of left breast (principal); K21.9 Gastro-esophageal reflux disease without esophagitis; I10 Essential (primary) hypertension
CPT/HCPCS: 19125; 00400; 19281; 76098; 88307; 88341; 88342; J2405

== ENCOUNTER → 2025-04-23 | Outpatient (CLI) | payer OTHER, SELFPAY | END | disposition home or self-care (01) | LOC: US 17:53 | PROVIDERS: PCP Family Medicine; Referring Provider Nurse Practitioner Family; Visit Provider Nurse Practitioner Family | DX: R10.31 Right lower quadrant pain (principal) | CPT/HCPCS: 76830; 76856 ==

== ENCOUNTER → 2025-05-25 | Outpatient (CLI) | payer OTHER, SELFPAY ==
[2025-05-26 03:07] LABS: Carcinoembryonic Antigen 1.0 ng/mL (0.0-4.7)
== END | disposition home or self-care (01) ==
LOC: LAB 12:44
PROVIDERS: PCP Family Medicine; Referring Provider Obstetrics & Gynecology; Visit Provider Obstetrics & Gynecology
DX: N83.209 Unspecified ovarian cyst, unspecified side (principal)
CPT/HCPCS: 36415; 82378; 86304

== ENCOUNTER → 2025-06-25 | Outpatient (CLI) | payer OTHER, SELFPAY ==
--- NOTE | 2025-06-25 18:01 | US_ITS ---
PROCEDURE: PELVIC W/ TRANSVAGINAL REASON FOR EXAM: OV CYST Patient is postmenopausal. TECHNIQUE: Procedure Code: [id number] Modality: US Procedure: PELVIC W/ TRANSVAGINAL COMPARISON: Prior study dated April 23, 2025. FINDINGS: Measurements: Uterus: 8.1 cm x 4.2 cm x 2.8 cm with a volume of 50.4 mL Endometrial Thickness: 6 mm. This is thickened for the postmenopausal state. Right Ovary: 9.6 cm x 8 cm x 6 cm with a volume of 254.14 mL. Left Ovary: 2.1 cm x 2.2 cm x 1.8 cm with a volume of 37.87 mL. TRANSABDOMINAL: Uterus: Normal size, myometrial echotexture, and contour. Nabothian cyst. Endometrium: The endometrium is thickened measuring 6 mm. It is hyperechoic. Right ovary: There is a 7.7 cm x 7.2 cm 5.4 cm septated cyst in the right ovary. This is essentially unchanged. Left ovary: Normal size and echotexture. Other: No large pelvic mass identified. Transvaginal sonography was performed to better visualize the endometrium. TRANSVAGINAL: Uterus: Anteverted. Normal contour and myometrial echotexture. Endometrium: Endometrial thickening at 6 mm for the postmenopausal state. Right ovary: Stable septated cyst in the right ovary. Left ovary: Normal size and echotexture. Other adnexal findings: None. Cul-de-sac: No free intraperitoneal fluid identified. Tenderness: No tenderness US/Pelvic w/ Transvaginal IMPRESSION: Stable septated cyst in the right ovary. Endometrial thickening at 6 mm. Reading Location: [id number]
== END | disposition home or self-care (01) ==
LOC: US 17:58
PROVIDERS: PCP Family Medicine; Referring Provider Obstetrics & Gynecology; Visit Provider Obstetrics & Gynecology
DX: N83.291 Other ovarian cyst, right side (principal); Z78.0 Asymptomatic menopausal state
CPT/HCPCS: 76830; 76856

== ENCOUNTER → 2025-07-23 | Outpatient (CLI) | payer OTHER, SELFPAY | END | disposition home or self-care (01) | LOC: BWCLAB 11:33 | PROVIDERS: PCP Family Medicine; Visit Provider Obstetrics & Gynecology | DX: Z08 Encounter for follow-up examination after completed treatment for malignant neoplasm (principal); Z85.3 Personal history of malignant neoplasm of breast; Z80.8 Family history of malignant neoplasm of other organs or systems; R10.9 Unspecified abdominal pain | CPT/HCPCS: 36415; 87086 ==

== ENCOUNTER 2025-08-28 10:25 | Day surgery (SDC) | payer OTHER, SELFPAY ==
--- NOTE | 2025-08-23 10:39 | EKG12_ITS ---
Test Reason : PRE OP Blood Pressure : */* mmHG Vent. Rate : 79 BPM Atrial Rate : 79 BPM P-R Int : 146 ms QRS Dur : 102 ms QT Int : 406 ms P-R-T Axes : 51 -35 40 degrees QTcB Int : 465 ms Normal sinus rhythm Left axis deviation Abnormal ECG When compared with ECG of 08-May-2005 16:19, PREVIOUS ECG IS PRESENT Confirmed by Mikhail Urias ([id number]), editorial clerk DONNA JARA ([id number]) on 08/27/2025 1:10:19 PM Referred By: Leanne Red Confirmed By: Mikhail Urias
[2025-08-23 12:19] LABS: Hematocrit 35.4 % (37-47); Hemoglobin 11.3 g/dL (12.0-15.0); Mean Corp Hgb Conc 31.9 g/dL (32-36); Mean Corpuscular Volume 82.3 fL (81-99); Mean Platelet Vol. 10.7 fl (6.2-12.0); Platelet Count 266 K/mm3 (150-450); RBC Distribution Width CV 15.7 % (11.6-14.6); RBC Distribution Width SD 47.2 fl (35.1-43.9); Red Blood Count 4.30 M/mm3 (4.2-5.4); White Blood Count 6.3 K/mm3 (4.4-11.0)
--- NOTE | 2025-08-24 09:56 | PAT.ANESEVAL ---
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 When Was Last Pacemaker Check QUESTION #4 FULL TEXT: You/Your Family Experience fever (hyperthermia) with Anesthesia Last Oral Intake Last Oral intake: Last Oral Intake NPO since Meds taken in AM with sips of water? Meds patient instructed to take am of surgery Any additional information?: Yes PONV PONV - electronic musical instrument repairer: PONV - electronic musical instrument repairer Female Yes 08/20/25 09:56 HX of Motion Sickness No 08/20/25 09:56 HX of N/V After Surgery No 08/20/25 09:56 Non-Smoker Yes 08/20/25 09:56 Duration of Surgery greater Yes 08/20/25 09:56 than 60 minutes Number of Risk Factors 3 08/20/25 09:56 PONV Score Moderate Risk 08/20/25 09:56 Height & Weight Height & Weight: Anesthesia: Height & Weight Height 5 ft 7 in 07/23/25 10:14 Respiratory Assessment Respiratory Assessment - electronic musical instrument repairer: Respiratory Tract Infection Hx - electronic musical instrument repairer Hx Respiratory Tract Infection No 08/20/25 09:56 STOP Sleep Apnea STOP Sleep Apnea - electronic musical instrument repairer: STOP Sleep Apnea - electronic musical instrument repairer Hx Hypertension Yes: ELEVATED AT DR HENDERSON, 08/20/25 09:56 NEVER CHECKS AT HOME Hx Sleep Apnea No 08/20/25 09:56 CPAP BIPAP Do you snore loudly (louder No 08/20/25 09:56 than talking or can be heard Do you often feel tired/ Yes 08/20/25 09:56 fatigued/ sleepy during daytime? Has anyone observed you stop Yes 08/20/25 09:56 breathing during sleep? STOP Results Positive 08/20/25 09:56 QUESTION #5 FULL TEXT : Do you snore loudly (louder than talking or can be heard through closed doors)? Tobacco Use History Tobacco Use History - electronic musical instrument repairer: Tobacco Use History - electronic musical instrument repairer Tobacco Use Smoking Status Never smoker 08/20/25 09:56 Hx Tobacco Use No 08/20/25 09:56 Years Smoking Packs Smoked per Day Smoking Cessation Date was within the last 15 years Hx Smoking Cessation Date Hx Smoking Cessation Counseling Hematologic Medial History Hematologic Hx - electronic musical instrument repairer: Hematologic Medical Hx - dexigraph operator Hx of Blood Transfusion No 08/20/25 09:56 Hx of Transfusion in last 3 No 08/20/25 09:56 Months Date of Last Transfusion (if within last 3 months) Ever experience any problems No 08/20/25 09:56 with transfusion(s)? Specify any problems Hx of Preganancy in last 3 N/A 08/20/25 09:56 Months Nurse Filling Out Transfusion NBUCHER 08/20/25 09:56 & Questions: Date: 08/20/25 08/20/25 09:56 Time: 09:57 08/20/25 09:56 Patient unable to answer at this time (ie. confused, unrespo /Reproduction History /Reproductive History - electronic musical instrument repairer: /Reproductive Hx- electronic musical instrument repairer Hx Now No 08/20/25 09:56 Gestational Age (in weeks): EDC: Hx Hx Para Hx Section SAB No 08/20/25 09:56 Does the father of the baby or his family experience fever w Father of the baby Malignant Hypertension history comment [facility] Medical History Genetic testing of female Microcalcification of left breast on mammogram Post-menopausal Wears contact lenses Depression Anxiety Anemia Back pain Injury of head and neck Gastric reflux Non-smoker Shortness of breath on exertion History of edema Arthritis Fatigue Home Medications ?Medication ?Instructions ?Recorded ?Last Taken ?Type loratadine 10 mg tablet (Claritin) 10 mg PO DAILY PRN PRN allergy 08/16/24 03/26/25 History symptoms magnesium 200 mg tablet 200 mg PO QDAY 08/16/24 03/25/25 History cyanocobalamin-liver extract tablet 3 tab PO QWEEK 03/14/25 03/27/25 History Allergy/AdvReac Type Severity Reaction Status Date / Time Penicillins (PCN) Allergy Severe Swelling Verified 08/20/25 09:54 Sulfa (Sulfonamide Allergy Intermediate Other Verified 08/20/25 09:54 Antibiotics) Family History Father Heart disease CVA (cerebral vascular accident) Myocardial infarction Grandmother Heart disease Grandfather Heart disease Surgical History (Updated 08/20/25 @ 09:59 by Janie Mei) History of lumpectomy of left breast (03/28/25) Status post left breast lumpectomy Hx of colonoscopy History of facial surgery Hx of wisdom tooth extraction History of dental surgery H/O foot surgery History of cholecystectomy Social History Smoking Status: Never smoker alcohol intake: never substance use type: does not use caffeine: Yes what type of physical activity do you participate in: none seatbelt use: always do you feel safe at home: Yes additional social history: (however lives in another state due to taking care of family members)-[facility] Audit: Pertinent Findings Pertinent Findings EKG Perinent findings: August 23, 2025. Normal sinus rhythm. Left axis deviation. Prolonged QT. Recommendation Anesthesia Recommendation Anesthesia recommendation: OPTIMIZED for anesthesia
[2025-08-28] VITALS (13 sets, daily range): BP systolic 143–174; BP diastolic 81–101; PULSE 49–84; RESP 16–18; TEMP 36.1–36.4; O2SAT 92–99; BMI 33.1
--- NOTE | 2025-08-28 10:42 | PCM.HP.BLA ---
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 Required: No Is patient in pain?: No Allergies Penicillins (PCN) Allergy (Severe, Verified 07/23/25 10:13) Swelling Sulfa (Sulfonamide Antibiotics) Allergy (Intermediate, Verified 07/23/25 10:13) Other Medications ?Medication ?Instructions ?Recorded ?Confirmed ?Type bupropion HCl 150 mg 24 hr tablet, 150 mg PO QAM 08/16/24 07/23/25 History extended release (Wellbutrin XL) loratadine 10 mg tablet (Claritin) 10 mg PO DAILY PRN PRN allergy 08/16/24 07/23/25 History symptoms magnesium 200 mg tablet 200 mg PO QDAY 08/16/24 07/23/25 History cyanocobalamin-liver extract tablet 3 tab PO QWEEK 03/14/25 07/23/25 History Post menopausal: No Patient : No : No PFSH Medical History Microcalcification of left breast on mammogram Post-menopausal Wears contact lenses Depression Anxiety Anemia Back pain Injury of head and neck Gastric reflux Non-smoker Shortness of breath on exertion History of edema Arthritis Fatigue Surgical History Status post left breast lumpectomy Hx of colonoscopy History of facial surgery Hx of wisdom tooth extraction History of dental surgery H/O foot surgery History of cholecystectomy Family History Father Heart disease CVA (cerebral vascular accident) Myocardial infarction Grandmother Heart disease Grandfather Heart disease Social History Smoking Status: Never smoker alcohol intake: never substance use type: does not use caffeine: Yes what type of physical activity do you participate in: none seatbelt use: always do you feel safe at home: Yes additional social history: (however lives in another state due to taking care of family members)-Fredis DEMARCO discussion has ?, pencilled in for 08/28 surgery Details: The patient is a 54-year-old female with a history of focal atypical ductal hyperplasia presenting for evaluation of a large ovarian cyst, urinary symptoms, and menopausal concerns. Ovarian Cyst - Diagnosed with a large ovarian cyst measuring 7.5 x 7.1 x 5.3 cm, septated. - Reports intermittent tweaks in the pelvic area, similar to premenstrual crampiness. - Experiences significant lower back pain, described as achiness, for about a year. - Recently felt a sharp pain in the pelvic area, accompanied by a strong urge to urinate. - Noticed increased urinary urgency and difficulty holding urine over the past three weeks. - Reports feeling bladder irritation and discomfort, especially when the bladder is full. - Cyst has shown minimal change in size between April and June 25 scans. - Scheduled for laparoscopic surgery on August 28 to remove the cyst. Urinary Symptoms - Reports urinary urgency and difficulty holding urine over the past three weeks. - Feels bladder irritation and discomfort, especially when the bladder is full. - Experiences incomplete bladder emptying and bowel movements over the last six months. - Family history of prolapse; cousin reportedly has to push up to empty bladder. Menopausal Concerns - Recently entered menopause. - Reports lower back pain and crampiness similar to premenstrual symptoms for the past 10 months. - Experiences vaginal dryness and discomfort during intercourse. - Interested in trying vaginal estrogen cream to alleviate symptoms. Skin Discoloration - Noticed dark patches around the bikini line and back about a year ago. - Initially thought it was a heat rash, but it persisted. - Reports itching in the affected areas. - Prescribed Diflucan by Dr. Miles, which cleared up the itchiness. - Suspects the discoloration may be related to high sugar intake and stress. Weight Gain - Reports weight gain and abdominal pooch after losing weight previously. - Attributes weight gain to poor diet and stress. - Noticed increased abdominal girth, suspects it may be related to the ovarian cyst. Focal Atypical Ductal Hyperplasia - Diagnosed with focal atypical ductal hyperplasia in March. - Reports shooting pains in the breast area where the hyperplasia was diagnosed. - Wears scar tape on the affected area, notices slight improvement in volume. - Interested in follow-up with a breast specialist. Anemia - History of anemia, unable to tolerate iron supplements. - Takes organic grass-fed beef liver capsules to manage anemia. - Hemoglobin level improved from 9.7 to 13.2 over six months. History 6 Elective abortions Hx Para 3 Spontaneous abortions Hx # Term Pregnancies Ectopic pregnancies Hx # Pregnancies Multiple births # of living children Past Pregnancies Del. Date Name GA/Weeks Outcome Route Bth Weight [facility] Jimmie Unknown Daniela Unknown Jami ROS Const ROS Unobtainable: All systems reviewed & are unremarkable except as noted in H Resp Resp: Reports system reviewed and no additional complaints, except as documented; Denies cough GI GI: Reports as per HPI Psych Psych: Reports system reviewed and no additional complaints, except as documented Exam Const General: cooperative, healthy appearing, comfortable and no acute distress Resp Effort & Inspection: normal respiratory effort General: bimanual renal exam normal bilaterally External Female Exam: normal appearance of the urethra Urethra: normal appearance of the urethra Speculum Exam - Vagina: normal appearance of the vagina Speculum Exam - Cervix: normal appearance of the cervix Bimanual Exam- Adnexa, other: normal adnexae and cystocele Pelvic Support: cystocele mild Skin General: no rashes or lesions noted Psych Appearance: grossly normal Speech and Movement: speech and movement normal Results POC Urinalysis Dip (Clinic) Office Urine Color Yellow Last Edit by Susan Silva on 07/23/25 12:03 Office Urine Clarity Cloudy Last Edit by Susan Silva on 07/23/25 12:03 Office Urine Glucose Negative Last Edit by Susan Silva on 07/23/25 12:03 Office Urine Ketones Negative Last Edit by Susan Silva on 07/23/25 12:03 Off Ur Spec [place] 1.015 Last Edit by Susan Silva on 07/23/25 12:03 Office Urine pH 5.0 Last Edit by Susan Silva on 07/23/25 12:03 Office Urine Bilirubin Negative Last Edit by Susan Silva on 07/23/25 12:03 Office Urine Urobilinogen 0.2 mg/dL Last Edit by Susan Silva on 07/23/25 12:03 Office Urine Blood Negative Last Edit by Susan Silva on 07/23/25 12:03 Office Urine Blood Hemolyzed ? Last Edit by Susan Silva on 07/23/25 12:03 Office Urine Protein Negative Last Edit by Susan Silva on 07/23/25 12:03 Office Urine Nitrate Negative Last Edit by Susan Silva on 07/23/25 12:03 Off Ur Leukocytes Negatve Last Edit by Susan Silva on 07/23/25 12:03 Coding Level of Care Code Off vis,est,level 4 Diagnoses Prolapse of female pelvic organs N81.9 Ovarian cyst N83.209 Atypical ductal hyperplasia of left breast N60.92 Assessment and Plan Assessment and Plan (1) Prolapse of female pelvic organs: Status: Acute (2) Ovarian cyst: Status: Acute (3) Atypical ductal hyperplasia of left breast: Status: Acute Orders: Orders Culture, Urine Today R10.9 - Unspecified abdominal pain POC Urinalysis Dip (Clinic) Today R10.9 - Unspecified abdominal pain Plan # 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 - Urinary urgency, frequency, and incomplete emptying attributed to mass effect from ovarian cyst. - Chronic lower back pain and pelvic cramping likely secondary to mass effect from ovarian cyst. - Laparoscopic oophorectomy scheduled for August 28; discussed surgical approach, expected recovery (1 week), and rare risk of malignancy. - Discussed intraoperative pathology of cyst fluid and ovary; results expected within 1?2 weeks post-op. - Advised to keep bladder as empty as possible to minimize discomfort. - Pre-op labs (CBC, type and screen) to be completed within 14 days of surgery. - Urine culture to rule out coincidental UTI. - Discussed post-op pain management: prescription-strength ibuprofen preferred, oxycodone 5 mg (10?20 tablets) for breakthrough pain. - Follow-up 2 weeks post-op to review pathology and assess recovery.
[2025-08-28] MEDS: Lactated Ringers 1,000 ML 15 ML IV (11:01)
--- NOTE | 2025-08-28 11:28 | PRE.ANES_ITS ---
ASA Classification* ASA Classification ASA Classification: 2 Assessment & Plan Anesthesia* Anesthesia Assessment Anesthesia Assessment: Discussed sedation and/or anesthesia options, risks, benefits, and alternatives with patient/parents/legal guardian/POA. Questions invited. The patient/parents/legal guardian/POA seems to understand and agrees to proceed with anesthesia plan. Reviewed the physical assessment, medical history, allergy history and patient home medications list prior to surgery/procedure/anesthetic and documented any changes. Performed airway and anesthesia risk assessments. Anesthesia Type Anesthesia Type: General History Source History Obtained from:: Patient and Chart Anesthesia Focused Assessment* Temperature: 97.5 F Pulse Rate: 71 Blood Pressure: 153/101 Respiratory Rate: 18 Pulse Ox: 99 Oxygen Delivery Method: Room Air Airway Assessment Mouth opens: >3 cm Mallampati Score: II Teeth Condition: Intact Neck Range of motion (ROM): Full ROM Labs Anesthesia Preop lab: CBC WBC, (4.4-11.0) 6.3 K/mm3 08/23/25, 10:58 RBC, (4.2-5.4) 4.30 M/mm3 08/23/25, 10:58 Hgb, (12.0-15.0) 11.3 g/dL L 08/23/25, 10:58 Hct, (37-47) 35.4 % L 08/23/25, 10:58 Plt Count, (150-450) 266 K/mm3 08/23/25, 10:58 CHEMISTRY Potassium, (3.5-5.1) 4.0 mmol/L 07/18/24, 10:42 Sodium, (136-145) 140 mmol/L 07/18/24, 10:42 BUN, (7-18) 10 mg/dL 07/18/24, 10:42 Creatinine, (0.55-1.02) 0.75 mg/dL 07/18/24, 10:42 Glucose, (74-106) 95 mg/dL 07/18/24, 10:42 TSH, (0.358-3.740) 0.594 uIU/mL 07/18/24, 10:42 COAG Pre-Assessment Diagnosis/Proposed Procedure Planned Operative Procedure(s): (R) Laparoscopic, oophorectomy Anesthesia History 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 When Was Last Pacemaker Check QUESTION #4 FULL TEXT: You/Your Family Experience fever (hyperthermia) with Anesthesia Last Oral Intake Last Oral intake: Last Oral Intake NPO since 00:00 08/28/25 10:47 Meds taken in AM with sips of No 08/28/25 10:47 water? Meds patient instructed to take am of surgery PONV PONV - owner professional engineer: PONV - owner professional engineer Female Yes 08/20/25 09:56 HX of Motion Sickness No 08/20/25 09:56 HX of N/V After Surgery No 08/20/25 09:56 Non-Smoker Yes 08/20/25 09:56 Duration of Surgery greater Yes 08/20/25 09:56 than 60 minutes Number of Risk Factors 3 08/20/25 09:56 PONV Score Moderate Risk 08/20/25 09:56 Height & Weight Height & Weight: Anesthesia: Height & Weight Height 5 ft 7 in 08/28/25 10:47 Weight: 96 kg 08/28/25 10:47 Body Mass Index (BMI) 33.1 08/28/25 10:47 Respiratory Assessment Respiratory Assessment - owner professional engineer: Respiratory Tract Infection Hx - owner professional engineer Hx Respiratory Tract Infection No 08/20/25 09:56 STOP Sleep Apnea STOP Sleep Apnea - owner professional engineer: STOP Sleep Apnea - owner professional engineer Hx Hypertension Yes: ELEVATED AT DR SANTIAGO, 08/20/25 09:56 NEVER CHECKS AT HOME Hx Sleep Apnea No 08/20/25 09:56 CPAP BIPAP Do you snore loudly (louder No 08/20/25 09:56 than talking or can be heard Do you often feel tired/ Yes 08/20/25 09:56 fatigued/ sleepy during daytime? Has anyone observed you stop Yes 08/20/25 09:56 breathing during sleep? STOP Results Positive 08/20/25 09:56 QUESTION #5 FULL TEXT : Do you snore loudly (louder than talking or can be heard through closed doors)? 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 Specify any problems Hx of Preganancy in last 3 N/A 08/20/25 09:56 Months Nurse Filling Out Transfusion NBUCHER 08/20/25 09:56 & Questions: Date: 08/20/25 08/20/25 09:56 Time: 09:57 08/20/25 09:56 Patient unable to answer at this time (ie. confused, unrespo /Reproduction History /Reproductive History - owner professional engineer: /Reproductive Hx- owner professional engineer Hx Now No 08/20/25 09:56 Gestational Age (in weeks): EDC: Hx Hx Para Hx Section SAB No 08/20/25 09:56 Does the father of the baby or his family experience fever w Father of the baby Malignant Hypertension history comment Active Medications Active Medications: Current Medications Generic Name Dose Route Start Last Admin Trade Name Freq PRN Reason Stop Dose Admin Lactated Ringer's 1,000 mls @ 15 mls/hr 08/28/25 10:45 08/28/25 11:01 IV 15 mls/hr .Q48H ANAY Administration PFSH Medical History Genetic testing of female Microcalcification of left breast on mammogram Post-menopausal Wears contact lenses Depression Anxiety Anemia Back pain Injury of head and neck Gastric reflux Non-smoker Shortness of breath on exertion History of edema Arthritis Fatigue Home Medications ?Medication ?Instructions ?Recorded ?Last Taken ?Type loratadine 10 mg tablet (Claritin) 10 mg PO DAILY PRN PRN allergy 08/16/24 03/26/25 History symptoms magnesium 200 mg tablet 200 mg PO QDAY 08/16/2406/11 History cyanocobalamin-liver extract tablet 3 tab PO QWEEK 03/27/25 History Allergy/AdvReac Type Severity Reaction Status Date / Time Penicillins (PCN) Allergy Severe Swelling Verified 08/28/25 10:46 Sulfa (Sulfonamide Allergy Intermediate Other Verified 08/28/25 10:46 Antibiotics) Family History Father Heart disease CVA (cerebral vascular accident) Myocardial infarction Grandmother Heart disease Grandfather Heart disease Surgical History (Updated 08/20/25 @ 09:59 by Janie Mei) History of lumpectomy of left breast (03/28/25) Status post left breast lumpectomy Hx of colonoscopy History of facial surgery Hx of wisdom tooth extraction History of dental surgery H/O foot surgery History of cholecystectomy Social History Smoking Status: Never smoker alcohol intake: never substance use type: does not use caffeine: Yes what type of physical activity do you participate in: none seatbelt use: always do you feel safe at home: Yes additional social history: (however [place] in [place] due to taking care of family members[place] Review of Systems (Anesthesia) ROS Narrative System reviewed and no additional complaints, except as documented. Physical Exam Const alert, oriented x3 and average body habitus Resp normal respiratory effort, normal air movement and clear to auscultation bilaterally Cardio regular rate, regular rhythm and no murmurs
--- OUTSIDE RECORDS SUMMARY | 2025-08-28 12:04 | XMS RPT_ITS | CCD ---
Author Organization [facility] Providers Care Flying Ii Instructor Name Role Phone Peña WISDOM, Dr. Davis Primary Care Provider Peña WISDOM, Dr. Davis Referring Provider Alli WISDOM, Dr. Mcfarlane Attending Provider [phone] Alli WISDOM, Dr. Mcfarlane Other Provider Peña WISDOM, Dr. Davis Attending Provider Peña WISDOM, Dr. Davis Primary Care Provider Peña WISDOM, Dr. Davis Referring Provider Alli WISDOM, Dr. Mcfarlane Attending Provider [phone] Alli WISDOM, Dr. Mcfarlane Referring Provider Alli WISDOM, Dr. Mcfarlane Other Provider Brandon WHITE SPOOLER-CRadha Attending Provider [phone] Brandon WHITE SPOOLER-CRadha Referring Provider Dr. Susan Pompa MD Primary Care Provider Dr. Susan Pompa MD Attending Provider Dr. Susan Pompa MD Referring Provider Dr. Leanne Red DO Attending Provider Dr. Leanne Red DO Referring Provider Dr. Susan Pompa MD Primary Care Provider Peña WISDOM, Dr. Davis Referring Provider Alli WISDOM, Dr. Mcfarlane Attending Provider Alli WISDOM, Dr. Mcfarlane Referring Provider Alli WISDOM, Dr. Mcfarlane Other Provider Peña WISDOM, Dr. Davis Primary Care Physician Brandon WHITE SPOOLER-C, Radha Attending Physician Alli WISDOM, Dr. Mcfarlane Attending Physician Alli WISDOM, Dr. Mcfarlane Nurse Practitioner Peña WISDOM, Dr. Davis Referring Provider Dr. Leanne Red DO Attending Physician Peña WISDOM, Dr. Davis Primary Care Physician [phone] Brandon WHITE SPOOLER-C, Radha Attending Physician Brandon WHITE SPOOLER-C, Radha Referring Provider Peña WISDOM, Dr. Davis Referring Provider Miedel, Susan Primary Care Unavailable Miedel, Susan Referring Unavailable Denys Carson Attending Unavailable Miedel, Susan Primary Care Unavailable Leanne Red Attending Unavailabl e Miedel, Susan Referring Unavailable Miedel, Susan Primary Care Unavailable Miedel, Susan Referring Unavailable Denys Carson Attending Unavailable Miedel, Susan Primary Care Unavailable Miedel, Susan Referring Unavailable Leanne Red Attending Unavailabl e Miedel, Susan Attending Unavailable Miedel, Susan Referring Unavailable Miedel, Susan Primary Care Unavailable Miedel, Susan Primary Care Unavailable Miedel, Susan Attending Unavailable Miedel, Susan Attending Unavailable Miedel, Susan Referring Unavailable Miedel, Susan Primary Care Unavailable Miedel, Susan Primary Care Unavailable Denys Carson Referring Unavailable Denys Carson Attending Unavailable Miedel, Susan Primary Care Unavailable Leanne Red Referring Unavailabl e Vande Brucede, Leanne Attending Unavailabl e Miedel, Susan Primary Care Unavailable Miedel, Susan Referring Unavailable CalabrettaPoojaDenys Attending Unavailable Miedel, Susan Referring Unavailable Miedel, Susan Primary Care Unavailable Calabretta, Denys Attending Unavailable Miedel, Susan Primary Care Unavailable Calabretta, Denys Consulting Unavailable Calabretta, Denys Referring Unavailable Calabretta, Denys Attending Unavailable Miedel, Susan Primary Care Unavailable Miedel, Susan Referring Unavailable Calabretta, Denys Consulting Unavailable Calabretta, Denys Attending Unavailable Miedel, Susan Primary Care Unavailable Miedel, Susan Referring Unavailable Miedel, Susan Attending Unavailable Miedel, Susan Primary Care Unavailable Miedel, Susan Attending Unavailable Miedel, Susan Primary Care Unavailable Leanne Red Referring Unavailabl e Vande Velde, Leanne Attending Unavailabl e Brandon, Radha Referring Unavailable Brandon, Radha Attending Unavailable Miedel, Susan Primary Care Unavailable Miedel, Susan Primary Care Unavailable Adan Fuentes, Leanne Attending Unavailabl e Miedel, Susan Primary Care Unavailable Alli, Denys Referring Unavailable Calabretta, Denys Attending Unavailable Miedel, Susan Primary Care Unavailable VandZoey Rogersfer Admitting Unavailabl e Vande Velde, Leanne Referring Unavailabl e Vande Velde, Leanne Attending Unavailabl e Brandon, Radha Referring Unavailable Brandon, Radha Attending Unavailable Miedel, Susan Primary Care Unavailable Miedel, Susan Primary Care Unavailable Brandon, Radha Referring Unavailable Brandon, Radha Attending Unavailable Miedel, Susan Primary Care Unavailable Alli, Denys Consulting Unavailable Calabrisai, Denys Referring Unavailable CalDenys huerta Attending Unavailable Allergies Allergy Classification Reported Allergen(s) Allergy Type Date of Onset Reaction(s) Facility (15 sources) Penicillins Allergy to substance 4 Swelling [facility] Comment on above: States she gets itch ing and her throat swells. (15 sources) Sulfonamides (Antibiotic) Allergy to substance 4 Other [facility] Comment on above: patient said it make s her sick all over. (1 source) Penicillins Drug allergy (disorder) 5 [facility] Repository (1 source) Sulfonamides (Antibiotic) Drug allergy (disorder) 5 [facility] Repository Medications Current Medications Medication Drug Class(es) Dates Sig (Normalized) Sig (Original) 24 hr buPROPion hydrochloride 150 mg extended release oral tablet (15 sources) Aminoketone Start: 08-16-2024 take 1 tablet by mouth once daily in the morning Cyanocobalamin-Liver Extract tablet (9 sources) Start: 03-14-2025 Start: 03-14-2025 Cyanocobalamin -Liver Extract tablet Active 3 {tbl} PO EVERY WEEK March 14, 2025 12:00am loratadine 10 mg oral tablet (15 sources) Start: 08-16-2024 take 1 tablet by indu th once daily as needed Magnesium (15 sources) Start: 08-16-2024 take 1 tablet by mouth once da kaitlyn Start: 08-16-2024 take 1 tablet by indu th once daily Magnesium 200 mg tablet Active 200 mg PO daily August 16, 2024 12:00am Completed/Discontinued Medications Medication Drug Class(es) Dates Sig (Normalized) Sig (Original) ascorbic acid 500 mg oral capsule (15 sources) Vitamin C Start: 08-16-2024 End: 03-14-2025 take 2 capsules by mouth once daily Ascorbic Acid (Vitamin C) 500 mg capsule Discontinued 1000 mg PO DAILY August 16, 2024 12:00am March 14, 2025 3:01pm Cranberry (9 sources) Non-Standardized Food Allergenic Extract, Non-Standardized Plant Allergenic Extract Start: 03-28-2025 End: 05-25-2025 take 1 capsule by mouth once daily as needed Cranberry 500 mg capsule Discontinued 1000 mg PO daily as needed for urinary tract irritation March 28, 2025 12:00am May 25, 2025 11:46am administer with a meal Start: 03-28-2025 take 1 capsule by mo uth once daily as needed Cranberry 500 mg capsule Active 1000 mg PO daily as needed for urinary tract irritation March 28, 2025 12:00am administer with a meal ferrous sulfate 325 mg oral tablet (15 sources) Start: 08-16-2024 End: 03-14-2025 take 1 tablet by mouth once daily Ferrous Sulfate (Feosol) 325 mg (65 mg iron) tablet Discontinued 325 mg PO daily August 16, 2024 12:00am March 14, 2025 3:02pm oxyCODONE hydrochloride 5 mg oral tablet (9 sources) Opioid Agonist Start: 03-28-2025 End: 04-11-2025 take 5-10 mg by mouth every six hours as needed for pain Oxycodone 5 mg tablet Discontinued 5 - 10 mg PO EVERY 6 HOURS as needed for pain 14 5 0 March 28, 2025 April 11, 2025 10:09am Atypical ductal hyperplasia of left breast Unspecified benign mammary dysplasia of left breast Problems Active Problems Problem Classification Problem Date Documented Date Episodic/Chronic Abdominal pain (4 sources) Unspecified abdominal pain; Translations: [Right lower quadrant pain] Onset: Episodic Deficiency and other anemia (15 sources) Anemia; Translations: [Anemia, unspecified] 08-16-2024 Episodic Hemorrhoids (15 sources) Hemorrhoids; Translations: [Unspecified hemorrhoids] 08-16-2024 Episodic Nonmalignant breast conditions (20 sources) Mammographic microcalcification of left breast; Translations: [Mammographic microcalcification found on diagnostic imaging of breast] Onset: 5 02-07-2025 Episodic Other aftercare (1 source) Encounter for follow-up examination after completed treatment for malignant neoplasm; Translations: [Encounter for follow-up examination after completed treatment for malignant neoplasm] Onset: 5 Episodic Ovarian cyst (11 sources) Cyst of ovary; Translations: [Unspecified ovarian cyst, unspecified side] Onset: 5 05-25-2025 Episodic Prolapse of female genital organs (11 sources) Prolapse of female genital organs; Translations: [Female genital prolapse, unspecified] Onset: 5 05-25-2025 Chronic Past or Other Problems Problem Classification Problem Date Documented Da te Episodic/Chronic Deficiency and other anemia (1 source) Iron deficiency anemia, unspecified; Translations: [Iron deficiency anemia, unspecified] Onset: 01-12-2025 Episodic Other screening for suspected conditions (not mental disorders or infectious disease) (18 sources) Patient encounter status; Translations: [Encounter for screening for malignant neoplasm of colon] Onset: 01-25-2025 08-16-2024 Episodic Comment on above: Negative Emp[employer] Scr eening Urinary tract infections (1 source) Urinary tract infection, site not specified; Translations: [Urinary tract infection, site not specified] Onset: 04-03-2025 Episodic Results Test Name Value Interpretation Reference Range Facility MR/Sergei 08-24-2025 MR/TIFFANIE GASTON [facility] Medical Records Department [address] [place] [address] PAT - Anesthesia 08/24/25955 MR#: [id number] Acct: [id number] Name: KATHERINE GORDON Rep #: [id number] : 1970 54 From: Turner Muhammad MD PCP: Dr. Susan Pompa MD Status:PRE WIC Y Race: C [place] [facility] [place] Pre-Assessment Diagnosis/Proposed Procedure Planned Operative Procedure(s): (R) Laparoscopic, oophorectomy Anesthesia History Anesthesia History - moshgiach: Anesthesia History - moshgiach Hx Hospitalization No 08/20/25 09:56 Any Problems With Anesthesia No 08/20/25 09:56 Cholinesterase deficiency No 08/20/25 09:56 You/Your Family Experience No 08/20/25 09:56 fever (hyperthermia) with Relationship Recent Exposure to Contagious No 03/28/25 10:29 Disease Does patient have nerve No 08/20/25 09:56 stimulator Patient instructed to have device shut off --Does patient have Pacemaker or ICD? When Was Last Pacemaker Check QUESTION #4 FULL TEXT: You/Your Family Experience fever (hyperthermia) with Anesthesia Last Oral Intake Last Oral intake: Last Oral Intake NPO since Meds taken in AM with sips of water? Meds patient instructed to take am of surgery Any additional information?: Yes PONV PONV - moshgiach: PONV - moshgiach Female Yes 08/20/25 09:56 HX of Motion Sickness No 08/20/25 09:56 HX of N/V After Surgery No 08/20/25 09:56 Non-Smoker Yes 08/20/25 09:56 Duration of Surgery greater Yes 08/20/25 09:56 than 60 minutes Number of Risk Factors 3 08/20/25 09:56 PONV Score Moderate Risk 08/20/25 09:56 Height Weight Height Weight: Anesthesia: Height Weight Height 5 ft 7 in 07/23/25 10:14 Respiratory Assessment Respiratory Assessment - moshgiach: Respiratory Tract Infection Hx - moshgiach Hx Respiratory Tract Infection No 08/20/25 09:56 STOP Sleep Apnea STOP Sleep Apnea - moshgiach: STOP Sleep Apnea - moshgiach Hx Hypertension Yes: ELEVATED AT DR HENDERSON, 08/20/25 09:56 NEVER CHECKS AT HOME Hx Sleep Apnea No 08/20/25 09:56 CPAP BIPAP Do you snore loudly (louder No 08/20/25 09:56 than talking or can be heard Do you often feel tired/ Yes 08/20/25 09:56 fatigued/ sleepy during daytime? Has anyone observed you stop Yes 08/20/25 09:56 breathing during sleep? STOP Results Positive 08/20/25 09:56 QUESTION #5 FULL TEXT : Do you snore loudly (louder than talking or can be heard through closed doors)? 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 Specify any problems Hx of Preganancy in last 3 N/A 08/20/25 09:56 Months Nurse Filling Out Transfusion NBUCHER 08/20/25 09:56 Questions: Date: 08/20/25 08/20/25 09:56 Time: 09:57 08/20/25 09:56 Patient unable to answer at this time (ie. confused, unrespo /Reproduction History /Reproductive History - moshgiach: /Reproductive Hx- moshgiach Hx Now No 08/20/25 09:56 Gestational Age (in weeks): EDC: Hx Hx Para Hx Section SAB No 08/20/25 09:56 Does the father of the baby or his family experience fever w Father of the baby Malignant Hypertension history comment [facility] Medical History Genetic testing of female Microcalcification of left breast on mammogram Post-menopausal Wears contact lenses Depression Anxiety Anemia Back pain Injury of head and neck Gastric reflux Non-smoker Shortness of breath on exertion History of edema Arthritis Fatigue Home Medications ???Medication ???Instructions ???Recorded ???Last Taken ???Type loratadine 10 mg tablet (Claritin) 10 mg PO DAILY PRN PRN allergy 1 03/26/25 History symptoms magnesium 200 mg tablet 200 mg PO QDAY 08/16/24 03/25/25 H istory cyanocobalamin-liver extract tablet 3 tab PO QWEEK 03/14/25 5 History Allergy/AdvReac Type Sever (more content not included)... Normal [facility] 12 Lead EKGon 08-23-2025 12 Lead EKG [facility] Cardiovascular Services [address] [place] [address] 12 Lead EKG 08/23/25 1044 MR#: [id number] Acct: [id number] Name: KATHERINE GORDON Rep #: [id number] : 1970 54 From: Mikhail Urias MD Attending Dr: Dr. Leanne Red DO Statu s: PRE SDC Ordering Dr: Alpesh Dunbar MD Date: 08/23/25 [place] [facility] [place] Sex: F C Admitted: Test Reason : PRE OP Blood Pressure : */* mmHG Vent. Rate : 79 BPM Atrial Rate : 79 BPM P-R Int : 146 ms QRS Dur : 102 ms QT Int : 406 ms P-R-T Axes : 51 -35 40 degrees QTcB Int : 465 ms Normal sinus rhythm Left axis deviation Abnormal ECG When compared with ECG of 08-May-2005 16:19, PREVIOUS ECG IS PRESENT Confirmed by Mikhail Urias ([id number]), newspaper photo editor DONNA JARA ([id number]) on 08/27/2025 1:10:19 PM Referred By: Leanne Red Confirmed By: Mikhail Urias 08/27/25 1310 Date Mikhail Urias MD CC: Dr. Alpesh Dunbar MD; Dr. Susan Pompa MD; Dr. Leanne Red, DO Signed Normal [facility] CBC-Complete Blood Cnt No Di ffon 08-23-2025 Erythrocyte distribution width (RBC) [Ratio] 15.7 % High 11.6-14.6 [facility] Comment on above: Performed By: #### L 100.0500, BTSPAT ####[facility] [address] [place], [address] Hematocrit (Bld) [Volume fraction] 35.4 % Low 37-47 [facility] Comment on above: Performed By: #### L 100.0500, BTSPAT ####[facility] [address] [place], [address] Hemoglobin (Bld) [Mass/Vol] 11.3 g/dL Low 12.0-15.0 [facility] Comment on above: Performed By: #### L 100.0500, BTSPAT ####[facility] [address] [place], [address] MCH (RBC) [Entitic mass] 26.3 pg Low 27.0-32.0 [facility] Comment on above: Performed By: #### L 100.0500, BTSPAT ####[facility] [address] [place], [address] MCHC (RBC) [Mass/Vol] 31.9 g/dL Low 32-36 [facility] Comment on above: Performed By: #### L 100.0500, BTSPAT ####[facility] [address] [place], [address] MCV (RBC) [Entitic vol] 82.3 fL Normal 81-99 [facility] Comment on above: Performed By: #### L 100.0500, BTSPAT ####[facility] [address] [place], [address] Platelet mean volume (Bld) [Entitic vol] 10.7 fL Normal 6.2-12.0 [facility] Comment on above: Performed By: #### L 100.0500, BTSPAT ####[facility] [address] [place], [address] Platelets (Bld) [#/Vol] 266 10*3/uL Normal 150-450 [facility] Comment on above: Performed By: #### L 100.0500, BTSPAT ####[facility] [address] [place], [address] RBC (Bld) [#/Vol] 4.30 10*6/uL Normal 4.2-5.4 [facility] Comment on above: Performed By: #### L 100.0500, BTSPAT ####[facility] [address] [place], [address] RDW SD 47.2 fl High 35.1-43.9 [facility] Comment on above: Performed By: #### L 100.0500, BTSPAT ####[facility] [address] [place], [address] WBC (Bld) [#/Vol] 6.3 10*3/uL Normal 4.4-11.0 [facility] Comment on above: Performed By: #### L 100.0500, BTSPAT ####[facility] [address] [place], [address] Type AND Screen - PAT ONLYon 08-23-2025 ABO and Rh group Nom (Bld) Blood group A Rh(D) positive Normal [facility] Comment on above: Order Comment: Reaso n for Laboratory Test [id number], oophorectomy Performed By: #### L 100.0500, BTSPAT ####[facility] [address] [place], [place], [address] Urine Cultureon 07-24-2025 URC Culture exhibits no growth. Normal [facility] Comment on above: Performed By: #### M 100.2200 #### [facility] [address] [place], [place], [address] Laboratory - Chemistry and C hemistry - challengeOrdered By: Leanne Fuentes on 07-23-2025 Bilirubin Ql (U) Negative [facility] Glucose Ql (U) Negative [facility] Ketones Ql (U) Negative [facility] pH (U) 5.0 [pH] [facility] Specific gravity (U) [Rel density] 1.015 [facility] Urobilinogen (U) [Mass/Vol] 0.1775483 mg/dL [facility] Laboratory - Hematology and Cell countsOrdered By: Leanne Fuentes on 07-23-2025 Hemoglobin Ql (U) Negative [facility] Laboratory - Specimen inform ationOrdered By: Leanne Fuentes on 07-23-2025 Clarity (U) Cloudy [facility] Color (U) Yellow [facility] Laboratory - UrinalysisOrder ed By: Leanne Fuentes on 07-23-2025 Nitrite Ql (U) Negative [facility] Protein Ql (U) Negative [facility] NATERAon 07-23-2025 NATURA SEE SCANNED REPORT Normal [facility] Comment on above: Performed By: #### L 900.0098 #### [facility] [address] [place], [address] No Panel InformationOrdered By: Leanne Fuentes on 07-23-2025 Urine Leukocytes Negatve [facility] Magnetic Tape Composer Operator Office Visit Reporton 07-23-2025 Magnetic Tape Composer Operator Office Visit Report [facility], [address] [place] [address] OFFICE VISIT Date of Service: 07/23/25 MR#: [id number] Acct: [id number] Name: KATHERINE GORDON Rep #: [id number] : 1970 Provider: Dr. Leanne Rodríguez DO Age/Sex: 54/F [facility] Status: Signed with Addenda ADDENDUM by Dr. Leanne Red DO on 07/24/25 at 1659 Assessment and Plan Assessment and Plan (1) Prolapse of female pelvic organs: Status: Acute (2) Ovarian cyst: Status: Acute (3) Atypical ductal hyperplasia of left breast: Status: Acute Orders: Orders Culture, Urine 07/23/25 R10.9 - Unspecified abdominal pain POC Urinalysis Dip (Clinic) 07/23/25 R10.9 - Unspecified abdominal pain Comments Comments: NOTES UNDER PATIENT INSTRUCTIONS IS IN ERROR. PATIENT IS NOT TO HAVE HYSTERECTOMY AND REPAIR WITH DR. CAGLE. 07/24/25 1659 Date Leanne Red DO cc: * Signed Intake Vital Signs 05/25/25 11:33 07/23/25 10:13 07/23/25 10:14 Height 5 ft 7 in 5 ft 7 in 5 ft 7 in Weight: 203 lb 7 oz 206 lb 7 oz BMI 31.8 32.3 BP 173/100 H 152/92 H Intake Visit Reasons: discussion has ?, pencilled in for 08/28 surgery Billboard Poster Required: No Is patient in pain?: No Allergies Penicillins (PCN) Allergy (Severe, Verified 07/23/25 10:13) Swelling Sulfa (Sulfonamide Antibiotics) Allergy (Intermediate, Verified 07/23/25 10:13) Other Medications ???Medication ???Instructions ???Recorded ???Confirmed ???Type bupropion HCl 150 mg 24 hr tablet, 150 mg PO QAM 08/16/24 07/23/25 History extended release (Wellbutrin XL) loratadine 10 mg tablet (Claritin) 10 mg PO DAILY PRN PRN allergy 1 07/23/25 History symptoms magnesium 200 mg tablet 200 mg PO QDAY 08/16/24 07/23/25 H istory cyanocobalamin-liver extract tablet 3 tab PO QWEEK 03/14/25 5 History Post menopausal: No Patient : No : No PFSH Medical History Microcalcification of left breast on mammogram Post-menopausal Wears contact lenses Depression Anxiety Anemia Back pain Injury of head and neck Gastric reflux Non-smoker Shortness of breath on exertion History of edema Arthritis Fatigue Surgical History Status post left breast lumpectomy Hx of colonoscopy History of facial surgery Hx of wisdom tooth extraction History of dental surgery H/O foot surgery History of cholecystectomy Family History Father Heart disease CVA (cerebral vascular accident) Myocardial infarction Grandmother Heart disease Grandfather Heart disease Social History Smoking Status: Never smoker alcohol intake: never substance use type: does not use caffeine: Yes what type of physical activity do you participate in: none seatbelt use: always do you feel safe at home: Yes additional social history: (however [place] in another [place] due to taking care of family members)-Fredis DEMARCO discussion has ?, pencilled in for 08/28 surgery Details: The patient is a 54-year-old female with a history of focal atypical ductal hyperplasia presenting for evaluation of a large ovarian cyst, urinary symptoms, and menopausal concerns. Ovarian Cyst - Diagnosed with a large ovarian cyst measuring 7.5 x 7.1 x 5.3 cm, septated. - Reports intermittent tweaks in the pelvic area, similar to premenstrual crampiness. - Experiences significant lower back pain, described as achiness, for about a year. - Recently felt a sharp pain in the pelvic area, accompanied by a strong urge to urinate. - Noticed increased urinary urgency and difficulty holding urine over the past three weeks. - Reports feeling bladder irritation and discomfort, especially when the bladder is full. - Cyst has shown minimal change in size between April and June 25 scans. - Scheduled for laparoscopic surgery on August 28 to remove the cyst. Urinary Symptoms - Reports urinary urgency and difficulty holding urine over the past three weeks. - Feels bladder irritation and discomfort, especially when the bladder is full. - Experiences incomplete bladder emptying and bowel movements over the last six months. - Family history of prolapse; cousin reportedly has to push up to empty bladder. Menopausal Concerns - Recently entered menopause. - Reports lower back pain and crampiness similar to premenstrual symptoms for the past 10 months. - Experiences vaginal dryness and discomfort during intercourse. - Interested in trying vaginal estrogen cream to alleviate symptoms. Skin (more content not included)... Normal [facility] Urine cultureOrdered By: Natalie Fuentes on 07-23-2025 Bacteria identified Cx Nom (U) Culture exhibits no growth. [facility] Pelvic w/ Transvaginalon Pelvic w/ Transvaginal [facility] Imaging Services [address] [place] [address] Pelvic w/ Transvaginal MR#: [id number] Acct: [id number] Name: KATHERINE GORDON Rep #: [id number] : 1970 F 54 From: Mikhail monte MD PCP: Dr. Susan Pompa MD Status: REG CLI Study: Pelvic w/ Transvaginal Date of Exam: 06/25/25 Exam# [id number] Ordering Dr: Leanne Red DO PROCEDURE: PELVIC W/ TRANSVAGINAL REASON FOR EXAM: OV CYST Patient is postmenopausal. TECHNIQUE: Procedure Code: [id number] Modality: US Procedure: PELVIC W/ TRANSVAGINAL COMPARISON: Prior study dated April 23, 2025. FINDINGS: Measurements: Uterus: 8.1 cm x 4.2 cm x 2.8 cm with a volume of 50.4 mL Endometrial Thickness: 6 mm. This is thickened for the postmenopausal state. Right Ovary: 9.6 cm x 8 cm x 6 cm with a volume of 254.14 mL. Left Ovary: 2.1 cm x 2.2 cm x 1.8 cm with a volume of 37.87 mL. TRANSABDOMINAL: Uterus: Normal size, myometrial echotexture, and contour. Nabothian cyst. Endometrium: The endometrium is thickened measuring 6 mm. It is hyperechoic. Right ovary: There is a 7.7 cm x 7.2 cm 5.4 cm septated cyst in the right ovary. This is essentially unchanged. Left ovary: Normal size and echotexture. Other: No large pelvic mass identified. Transvaginal sonography was performed to better visualize the endometrium. TRANSVAGINAL: Uterus: Anteverted. Normal contour and myometrial echotexture. Endometrium: Endometrial thickening at 6 mm for the postmenopausal state. Right ovary: Stable septated cyst in the right ovary. Left ovary: Normal size and echotexture. Other adnexal findings: None. Cul-de-sac: No free intraperitoneal fluid identified. Tenderness: No tenderness US/Pelvic w/ Transvaginal IMPRESSION: Stable septated cyst in the right ovary. Endometrial thickening at 6 mm. Reading Location: [id number] CC: Dr. Susan Pompa MD; Dr. Leanne Red DO Insurance Rater: Signed Normal [facility] Cancer Antigen 125on 025 CA 125 9.2 U/mL Normal 0.0-38.1 [facility] Comment on above: Result Comment: [employer] Electrochemiluminescence Immunoassay (ECLIA) Values obtained with different assay methods or kits cannot be used interchangeably. Results cannot be interpreted as absolute evidence of the presence or absence of malignant disease. Performed at: [address] [id number] Epilepsy Physician: Boris Coats PhD, Phone: [phone] Performed By: #### L 3100.5000, L3100.2300 ####[facility] [id number] [place], [address] Carcinoembryonic Antigenon 0 05-26-2025 CEA 1.0 ng/mL Normal 0.0-4.7 [facility] Comment on above: Result Comment: Nons mokers <3.9 Smokers <5.6 [employer] Electrochemiluminescence Immunoassay (ECLIA) Values obtained with different assay methods or kits cannot be used interchangeably. Results cannot be interpreted as absolute evidence of the presence or absence of malignant disease. Performed By: #### L 3100.5000, L3100.2300 ####[facility] [address] [place], [address] Cancer antigen 125 (CA-125) measurementOrdered By: Leanne Fuentes on 05-25-2025 Cancer antigen 125 (CA-125) measurement 9.2 U/mL 0.0-38.1 [facility] Comment on above: [employer] El ectrochemiluminescence Immunoassay(ECLIA)Values obtained with different assay methods or kits cannotbe used interchangeably. Results cannot be interpreted asabsolute evidence of the presence or absence of malignantdisease.Performed at: [employer] [id number] Director: Boris Coats PhD, Phone: [phone] [employer] T[employer] Composer Operator Office Visit Reporton 05-25-2025 Magnetic Tape Composer Operator Office Visit Report [facility] [address], [address] [place] [address] OFFICE VISIT Date of Service: 05/25/25 MR#: [id number] Acct: [id number] Name: KATHERINE GORDON Rep #: [id number] : 1970 Provider: Dr. Leanne Rodríguez, Age/Sex: 54/F Location: [facility] Status: Signed Intake Vital Signs 03/28/25 10:33 05/25/25 11:33 Height 5 ft 7 in 5 ft 7 in Weight: 203 lb 7 oz BMI 31.8 BP 173/100 H Intake Visit Reasons: Pelvic Pain ([place]) Billboard Poster Required: No Allergies Penicillins (PCN) Allergy (Severe, Verified 05/25/25 11:33) Swelling Sulfa (Sulfonamide Antibiotics) Allergy (Intermediate, Verified 05/25/25 11:33) Other Medications ???Medication ???Instructions ???Recorded ???Confirmed ???Type bupropion HCl 150 mg 24 hr tablet, 150 mg PO QAM 08/16/24 05/25/25 History extended release (Wellbutrin XL) loratadine 10 mg tablet (Claritin) 10 mg PO DAILY PRN PRN allergy 1 05/25/25 History symptoms magnesium 200 mg tablet 200 mg PO QDAY 08/16/24 05/25/25 H istory cyanocobalamin-liver extract tablet 3 tab PO QWEEK 03/14/25 5 History Post menopausal: No Patient : No : No PFSH Medical History Microcalcification of left breast on mammogram Post-menopausal Wears contact lenses Depression Anxiety Anemia Back pain Injury of head and neck Gastric reflux Non-smoker Shortness of breath on exertion History of edema Arthritis Fatigue Surgical History Status post left breast lumpectomy Hx of colonoscopy History of facial surgery Hx of wisdom tooth extraction History of dental surgery H/O foot surgery History of cholecystectomy Family History (Updated 05/25/25 @ 11:47 by Susan Silva) Father Heart disease CVA (cerebral vascular accident) Myocardial infarction Grandmother Heart disease Grandfather Heart disease Social History (Updated 05/25/25 @ 11:48 by Susan Silva) Smoking Status: Never smoker alcohol intake: never substance use type: does not use caffeine: Yes what type of physical activity do you participate in: none seatbelt use: always do you feel safe at home: Yes additional social history: (however lives in another state due to taking care of family members)-Fredis DEMARCO Pelvic Pain (YO) Details: The patient is a 54-year-old female presenting with concerns regarding an ovarian cyst and hormone replacement therapy. The ovarian cyst was initially identified following an episode of severe pain after a GLP injection for weight loss, which resulted in a 35-pound weight loss. The pain was severe enough to consider hospital admission but subsided after a few hours. The patient was on hormone replacement therapy, specifically a combination of estradiol and norethindrone, which was discontinued after the discovery of the cyst. The cyst was described as having a septation and debris, raising concerns about its nature, whether it is a borderline tumor or a functional cyst. The patient also has a history of focal atypical ductal hyperplasia with microcalcifications, which was identified through a surgical biopsy on March 28. The pathology report indicated estrogen receptor positivity, suggesting that the hormone replacement therapy may have exacerbated the condition. The patient expressed concerns about the impact of hormone replacement therapy on her breast cancer risk and is considering a breast cancer risk assessment. She has undergone a breast cancer risk assessment, which indicated a 5% risk, and is contemplating further genetic testing for BRCA mutations. Attestation: Documentation on this patient encounter was supported using ambient scribe technology/ voice AI technology. The patient consented to recording for the purpose of documenting the encounter. Provider reviewed content of the generated note prior to signature. History 6 Elective abortions Hx Para 3 Spontaneous abortions Hx # Term Pregnancies Ectopic pregnancies Hx # Pregnancies Multiple births # of living children Past Pregnancies Del. Date Name GA/Weeks Outcome Route Bth Weight Infant Gen Labor Lgth Anesthesia Del Locatn Provider FOB Unknown Jimmie Unknown Daniela Unknown Jami ROS Const ROS Unobtainable: All systems reviewed are unremarkable except as noted in H Resp Resp: Reports system reviewed and no additional complaints, except as documented; Denies cough GI GI: Reports as per HPI Psych Psych: Reports system reviewed and no additional complaints, except as documented Exam Const General: cooperative, healthy appe (more content not included)... Normal [facility] Serum or plasma carcinoembry onic antigen measurement (mass/volume)Ordered By: Leanne Fuentes on 05-25-2025 Carcinoembryonic Ag [Mass/Vol] 1.0 ng/mL 0.0-4.7 [facility] Comment on above: Nonsmokers <3.9 Smok ers <5.6[facility] [employer] Electrochemiluminescence Immunoassay(ECLIA)Values obtained with different assay methods or kitscannot be used interchangeably. Results cannot beinterpreted as absolute evidence of the presence orabsence of malignant disease. Pelvic w/ Transvaginalon Pelvic w/ Transvaginal [facility] Imaging Services [address] [place], [place] [address] Pelvic w/ Transvaginal MR#: [id number] Acct: [id number] Name: KATHERINE GORDON Rep #: [id number] : 1970 F 54 From: Mikhail monte MD PCP: Dr. Susan Pompa MD Status: REG CLI Study: Pelvic w/ Transvaginal Date of Exam: 04/23/25 Exam# [id number] Ordering Dr: Radha Taylor PROCEDURE: PELVIC W/ TRANSVAGINAL REASON FOR EXAM: RLQ PAIN TECHNIQUE: PELVIC W/ TRANSVAGINAL COMPARISON: None FINDINGS: The patient is postmenopausal. Measurements: Uterus: 9.3 cm x 4.5 cm x 2.6 cm with a volume of 55.86 mL Endometrial Thickness: 4 mm. Slightly thickened for the postmenopausal phase. Right Ovary: 9.1 cm x 8.3 cm x 5.5 cm with a volume of 313.26 mL. Left Ovary: 2 cm x 1.3 cm x 1.7 cm with a volume of mL. TRANSABDOMINAL: Uterus: Normal size, myometrial echotexture, and contour. Endometrium: Slightly thickened endometrium for postmenopausal state. Right ovary: 7.5 cm x 7.1 cm 5.3 cm septated cyst in the right ovary. Left ovary: Normal size and echotexture. Other: No large pelvic mass identified. Transvaginal sonography was performed to better visualize the endometrium. TRANSVAGINAL: Uterus: Anteverted. Endometrium: Mild thickening of the endometrium. Right ovary: 7.5 cm 7.1 cm by 5.3 cm cyst in the right ovary. Left ovary: Normal size and echotexture. Other adnexal findings: None. Cul-de-sac: No free intraperitoneal fluid identified. Tenderness: No tenderness US/Pelvic w/ Transvaginal IMPRESSION: 7.5 cm by 7.1 cm 5.3 cm septated cyst in the right ovary. Mild thickening of the endometrium. Reading Location: [facility] CC: LUCIA Taylor; Dr. Susan Pompa MD Insurance Rater: Signed Normal [facility] Surgery Visit Reporton 04-11 Surgery Visit Report [facility] [address] [place] [address] [address] [place] [address] OFFICE VISIT Date of Service: 04/11/25 MR#: [id number] Acct: [id number] Name: KATHERINE GORDON Rep #: [id number] : 1970 Provider: Dr. Denys bee MD Age/Sex: 54/F Location: [facility] Status: Signed Intake Vital Signs 03/28/25 10:33 Height 5 ft 7 in Intake Visit Reasons: LUMPECTOMY 6- Chief Complaint: f/u lumpectomy Billboard Poster Required: No Is patient in pain?: No Allergies Penicillins (PCN) Allergy (Severe, Verified 04/11/25 10:08) Swelling Sulfa (Sulfonamide Antibiotics) Allergy (Intermediate, Verified 04/11/25 10:08) Other Medications ???Medication ???Instructions ???Recorded ???Confirmed ???Type bupropion HCl 150 mg 24 hr tablet, 150 mg PO QAM 08/16/24 04/11/25 History extended release (Wellbutrin XL) loratadine 10 mg tablet (Claritin) 10 mg PO DAILY PRN PRN allergy 1 04/11/25 History symptoms magnesium 200 mg tablet 200 mg PO QDAY 08/16/24 04/11/25 H istory cyanocobalamin-liver extract tablet 3 tab PO QWEEK 03/14/25 5 History cranberry 500 mg capsule 1,000 mg PO QDAY PRN urinary tract 03/28/25 04/11/25 History irritation Have you fallen in the past year?: No Subjective Details: Patient is doing well with no complaints. Objective Details: Incision is healing well Coding Level of Care Code Global Post Op Diagnoses Atypical ductal hyperplasia of left breast N60.92 PFSH Medical History Microcalcification of left breast on mammogram Post-menopausal Wears contact lenses Depression Anxiety Anemia Back pain Injury of head and neck Gastric reflux Non-smoker Shortness of breath on exertion History of edema Arthritis Fatigue Surgical History (Updated 04/11/25 @ 10:09 by Vicki Kwong) Status post left breast lumpectomy Hx of colonoscopy History of facial surgery Hx of wisdom tooth extraction History of dental surgery H/O foot surgery History of cholecystectomy Family History Father Heart disease Grandmother Heart disease Social History Smoking Status: Never smoker alcohol intake: never substance use type: does not use Assessment and Plan (No Qualifiers) Assessment and Plan (1) Atypical ductal hyperplasia of left breast: Status: Acute Plan: Patient is doing well and her pathology revealed atypical ductal hyperplasia with no malignancy. She may have a repeat mammogram in 1 year. Follow-up as needed. Denys Carson MD Pager: [facility] [address] [place] [address], [address] [place] [address] Office: 04/17/25 1350 Date Denys Carson [facility] Signature: Date (if applicable) CC: Normal [facility] Breast Biopsy Specimenon Breast Biopsy Specimen [facility] Imaging Services [address] [place] [address] Breast Biopsy Specimen MR#: [id number] Acct: [id number] Name: KATHERINE GORDON Rep #: [id number] : 1970 F 54 From: Mikhail monte MD PCP: Dr. Susan Pompa MD Status: [facility] Study: Breast Biopsy Specimen Date of Exam: 03/28/25 Exam# [id number] Ordering Dr: Denys Carson EXAM: BREAST BIOPSY SPECIMEN 03/28/2025 CLINICAL HISTORY: F, Age 54 y/o, needle localization. TECHNIQUE: Specimen radiograph. COMPARISON: Prior exam(s) dated . FINDINGS: Radiograph of the operative specimen was obtained. The calcifications in tissue clip marker is seen. BI/Breast Biopsy Specimen IMPRESSION: Tissue clip marker is seen within the operative specimen. A letter with findings and recommendations will be mailed to the patient. Reading Location: [facility] CC: Dr. Denys Carson MD; Dr. Susan Pompa MD Insurance Rater: Signed Normal [facility] Breast imaging reportOrdered By: Mikhail Cortez on 03-28-2025 Study report [facility] Imaging Services [address] [place], [place] [address] Needle Loc 1st Lesion MR#: [id number] Acct: [id number] Name: KATHERINE GORDON Rep #: [id number] : 1970 F 54 From: Juan Ramon Cortez MD PCP: Dr. Susan Pompa MD Status: REG [facility] Study:Needle Loc 1st Lesion Date of Exam: 03/28/25 Exam# [id number] Ordering Dr: Denys Manzanares MD EXAM: NEEDLE LOC 1ST LESION 03/28/2025 CLINICAL HISTORY: F, Age 54 y/o, needle localization. TECHNIQUE: Needle localization was performed. COMPARISON: Prior exam(s) dated February 12, 2025.. FINDINGS: Needle localization of the tissue clip marker in the medial anterior aspect of the left breast. BI/Needle Loc 1st Lesion IMPRESSION: Needle exaggeration of the tissue clip marker in the medial anterior aspect of the left breast. Reading Location: [facility] CC: Dr. Denys Carson MD; Dr. Susan Pompa MD ~ Insurance Rater: Signed [facility] Study report [facility] Imaging Services [address] [place] [address] Breast Biopsy Specimen MR#: [id number] Acct: [id number] Name: KATHERINE GORDON Rep #: [id number] : 1970 F 54 From: Juan Ramon Cortez MD PCP: Dr. Susan Pompa MD Status: REG [facility] Study:Breast Biopsy Specimen Date of Exam: 03/28/25 Exam# [id number] Ordering Dr: Denys Manzanares MD EXAM: BREAST BIOPSY SPECIMEN 03/28/2025 CLINICAL HISTORY: F, Age 54 y/o, needle localization. TECHNIQUE: Specimen radiograph. COMPARISON: Prior exam(s) dated . FINDINGS: Radiograph of the operative specimen was obtained. The calcifications in tissueclip marker is seen. BI/Breast Biopsy Specimen IMPRESSION: Tissue clip marker is seen within the operative specimen. A letter with findings and recommendations will be mailed to the patient. Reading Location: [place] [address] CC: Dr. Denys Carson MD; Dr. Susan Pompa MD ~ Insurance Rater: Signed [facility] Discharge Instructionon 03-18 Discharge Instruction [facility] Medical Records Department [address] [place] [address] Instructions for Home/Discharge Instructions 03/28/25 1310 MR#: [id number] Acct: [id number] Name: KATHERINE GORDON Rep #: [id number] : 1970 54 From: Denys Carson MD PCP: Dr. Susan Pompa MD Status:REG [facility] Discharge Instructions Diet Discharge Diet: No restrictions Activity Discharge Activity: May Not Drive (for 2-3 days or while taking narcotic pain medications.) and May Shower May shower in (days): 1 Lifting Restrictions: 15 lbs for 1 week Additional Activity Instructions:: Alternate ibuprofen and Tylenol for pain control, oxycodone for breakthrough pain Dressing / Incision Call your doctor if your incision/area has: Continuous Slow Oozing, Sudden Increased Bleeding, Increased Pain/ Swelling, Increased Redness, Foul Smelling Discharge and Swelling at the incision site Call your doctor if you observe: Fever of 101 or Higher Suture Line Care: Avoid Pulling/Pushing and Avoid Pinching/Bending Cleanse incision/area with: Soap Water Additional Dressing/Incision Instructions:: Remove bulky dressing tomorrow. Follow Up Care Please Follow Up With: Denys Carson MD When: Please call to schedule 2 week follow up appointment. [phone] Test Results: Test results from this visit will be discussed in further detail at your follow-up appointment, if applicable. Discharge Plan Admission Attending Provider: Denys Carson Primary Care Provider: Susan Pompa Instructions Print Language: Czech Discharge Orders/Prescriptions Prescriptions: New oxycodone 5 mg tablet 5 - 10 mg PO Q6H PRN (Reason: pain) 5 Days Qty: 14 0RF No Action bupropion HCl [Wellbutrin XL] 150 mg tablet extended release 24 hr 150 mg PO QAM magnesium 200 mg tablet 200 mg PO QDAY loratadine [Claritin] 10 mg tablet 10 mg PO DAILY PRN PRN (Reason: allergy symptoms) cyanocobalamin-liver extract Tablet 3 tab PO QWEEK cranberry 500 mg capsule 1,000 mg PO QDAY PRN (Reason: urinary tract irritation) Rx Instructions: administer with a meal Referrals / Follow Up: Susan Pompa MD [Primary Care Provider] - Disposition Disposition (needs filled in before D/C Order can be placed): Home, Self Care 03/28/25 1312 Denys Carson MD CC: Dr. Susan Pompa MD Signed Normal [facility] Immunohistochemical Stainson 03-28-2025 Immunohistochemical Stains Patient Age/Sex Location Account Attending Physician KATHERINE GORDON 54/F [facility] [id number] Dr. Denys Carson MD Specimen: [id number] Received: 03/28/25 Status: FIGUEROA Ryder Num: [id number] Spec Type: BREAST Subm Dr: Dr. Denys Carson MD HEADER OPERATION: Breast, NL left stereo wire localization lumpectomy PRE-OP DIAGNOSIS: Atypical ductal hyperplasia of left breast TISSUE SUBMITTED: A- Left breast tissue *short tag- superior, long tag - lateral* Ischemic Time: 15 minute Fixation Time: 8 hours MICROSCOPIC DIAGNOSIS A. Breast, left, lumpectomy: * Focal atypical ductal hyperplasia with microcalcifications - see note. * Focal biopsy site changes. * Focal apocrine metaplasia. * Note: IHCs for CK5/6 and p40 support the histologic impression. ER is diffusely and strongly positive. MICROSCOPIC DESCRIPTION Slides are reviewed. All matched controls reacted appropriately. These tests were developed and their performance characteristics determined by [facility]. They may not have been cleared or approved by the U.S. Food and Drug Administration. The FDA has determined that such clearance or approval is not necessary.??? The above immunohistochemical/dualIS H???markers are ordered and reviewed by the Pathologist. GROSS DESCRIPTION A. Received fresh and subsequently placed in formalin labeled the patient's name and date of . Designated as left breast tissue short tag superior, long tag lateral is a 6.0 x 4.8 x 2.0 cm lumpectomy with an exposed localization wire on the posterior aspect. There is a short suture designated as superior and a long suture designated as lateral. The specimen is inked as follows: Superior: Red Inferior: Blue Anterior: Green Posterior: Black Medial: Yellow Lateral: Duval The specimen is serially sectioned from posterior to anterior into 8 slices revealing a biopsy cavity containing a barbell clip in slice #5. There is fibrosis surrounding the biopsy cavity spanning from slice #4 to slice #6. The biopsy cavity with surrounding Patient Age/Sex Location Account Attending Physician KATHERINE GORDON 54/F [facility] [id number] Dr. Denys Carson MD fibrosis is located the following distances from the margins: Lateral: <0.1 cm Inferior: <0.1 cm Superior: 1.4 cm Anterior: 1.8 cm Medial: 2.5 cm Posterior: >4.0 cm No definitive masses are grossly appreciated. The remainder of the cut surfaces are maldonado-yellow fibrofatty (90% fatty, 10% fibrotic). Drill Hand sections are submitted, sequentially from posterior to anterior (per diagram) in 8 cassettes as follows: A1: Slice #1, posterior margin, perpendicular A2: Slice #2, fibrosis with lateral/inferior/superior margins A3: Slice #3, fibrosis with inferior/superior margins A4: Slice #4, fibrosis with lateral/inferior/superior margins A5: Slice #5, biopsy site and fibrosis to lateral/inferior margins A6: Slice #5, lateral/superior/medial margins A7: Slice #6, fibrosis adjacent (anterior) to mass to lateral/inferior/superior margins A8: Slice #8, anterior margin, perpendicular Cold ischemic time: 15 minutes Formalin fixation time: 31 hours, 10 minutes [facility] 03/29/20[place] CPT:60817,[id number] Patient Age/Sex Location Account Attending Physician KATHERINE GORDON 54/F [facility] [id number] Dr. Denys Carson MD Signed (signature on file) Dr. Kristy Berman MD 04/03/25 1629 Normal [facility] Comment on above: Performed By: #### P IMHI ####[facility] [id number] [facility], [address] MR/POSTOP.ANEon 03-28-2025 MR/POSTOP.ANE [facility] Medical Records Department [address] [place] [address] Anesthesia Postop Eval I 03/28/25 1231 MR#: [id number] Acct: [id number] Name: KATHERINE GORDON Rep #: [id number] : 1970 54 From: Yudith Wheat CRNA PCP: Dr. Susan Pompa MD Status:REG SD Y Race: C Location: [place] [address] Anesthesia: Postop Eval I Current Vital Signs Temperature: 97.2 F Pulse Rate: 83 Blood Pressure: 149/101 Respiratory Rate: 16 Pulse Ox: 94 Oxygen Delivery Method: Room Air Assessment Airway patent: Yes Spontaneous unlabored respirations: Yes Mental status: Awake and Calm nausea: No Vomiting: No Anesthesia Complication: No Fluid Hydration Crystalloid volume administer (ml): 800 Total IV fluid infused: 800 Progress Note Anesthesia document: Postop Eval 1 completed: Yes 03/28/25 1233 Date Yudith Morrowigner Signature: Date CC: Signed Normal [facility] MR/[id number] 03-28-2025 MR/POSTOPAN2 [facility] Medical Records Department [address] [place] [address] Anesthesia Postop Eval II 03/28/25 1354 MR#: [id number] Acct: [id number] Name: KATHERINE GORDON Rep #: [id number] : 1970 54 From: Alpesh Dunbar MD PCP: Dr. Susan Pompa MD Status:REG SDC Y Race: C Location: [place] [address]- Anesthesia Postop Eval I Sum Postop Eval Completion status Anesthesia document: Postop Eval 1 completed: Yes Anesthesia Postop Eval I Summary Anesthesia Postop Eval I Summary: Anesthesia Postop Eval I: Assessment Summary Airway patent Yes 03/28/25 12:33 CASH APPLICATION [email or web address] Spontaneous unlabored Yes 03/28/25 12:33 CASH APPLICATION CLERK.JDEF respirations Mental status Awake,Calm 03/28/25 12:33 CASH APPLICATION CLERK.JDEF nausea No 03/28/25 12:33 CASH APPLICATION CLERK.JDEF Vomiting No 03/28/25 12:33 CASH APPLICATION CLERK.JDEF Anesthesia Postop Eval I: Fluid Summary Crystalloid volume administer 800 03/28/25 12:33 CASH APPLICATION CLERK.JDEF (ml) Colloids volume administered ( ml) Blood Product volume administered (ml) Total IV fluid infused 800 03/28/25 12:33 CASH APPLICATION CLERK.JDEF Anesthesia Postop Eval I: Summary Notes Anesthesia Complication No 03/28/25 12:33 CASH APPLICATION CLERK.JDEF Anesthesia Complication Comment: Post-operative progress note Anesthesia: Postop Eval II Evaluation Mental status: Awake Pain Level: 0 nausea: No Vomiting: No 03/28/25 1355 Date Alpesh Dunbar MD Cosigner Signature: Date CC: Signed Normal [facility] Needle Loc 1st Lesionon 03-18 Needle Loc 1st Lesion [facility] Imaging Services [address] [place] [address] Needle Loc 1st Lesion MR#: [id number] Acct: [id number] Name: KATHERINE GORDON Rep #: [id number] : 1970 F 54 From: Mikhail monte MD PCP: Dr. Susan Pompa MD Status: REG [facility] Study: Needle Loc 1st Lesion Date of Exam: 03/28/25 Exam# [id number] Ordering Dr: Denys Carson EXAM: NEEDLE LOC 1ST LESION 03/28/2025 CLINICAL HISTORY: F, Age 54 y/o, needle localization. TECHNIQUE: Needle localization was performed. COMPARISON: Prior exam(s) dated February 12, 2025.. FINDINGS: Needle localization of the tissue clip marker in the medial anterior aspect of the left breast. BI/Needle Loc 1st Lesion IMPRESSION: Needle exaggeration of the tissue clip marker in the medial anterior aspect of the left breast. Reading Location: [place] [address] CC: Dr. Denys Carson MD; Dr. Susan Pompa MD Insurance Rater: Signed Normal [facility] Operative Reporton Operative Report [facility] Medical Records Department [address] [place] [address] Operative Report 03/28/25 1307 MR#: [id number] Acct: [id number] Name: KATHERINE GORDON Rep #: [id number] : 1970 54 From: Denys Carson MD PCP: Dr. Susan Pompa MD Status:REG [facility] Location: [place] [address] Operative Report (Standard) Operative Information Date of Procedure: 03/28/25 Pre-Operative Diagnosis: Left breast atypical ductal hyperplasia Post-Operative Diagnosis: Same Surgery/Procedure Performed: 1. Stereotactic wire localization of left breast lesion 2. Lumpectomy of left breast catalog library assistant: Yes Ultimate Hoops Trainer: Sarah Lee Tasks completed by presser first: Opening and Closing Type of Anesthesia: General/Regional RN Documented Start/Stop Times: Operation Date: 03/28/25 11:30 Case Time Into Pre-Op 03/28/25 10:13 Out of Pre-Op 03/28/25 11:36 Anesthesia Start 03/28/25 11:40 Into Room 03/28/25 11:40 Procedure Start 03/28/25 11:58 Procedure End 03/28/25 12:16 Anesthesia End 03/28/25 12:24 Out of Room 03/28/25 12:24 Into Recovery 03/28/25 12:27 Procedure Start Time: 11:58 Procedure Stop Time: 12:16 Select all DRAINS/GRAFTS/IMPLANTS that apply: None Estimated Blood Loss: 5 Specimen collected: Yes Description of specimen(s) removed: Left breast mass Description of surgery: Patient was brought to the stereotactic room and placed in the stereotactic table. Images were obtained of the left breast and the clip was localized using the computer. Stereotactic images were obtained. Next the skin was prepped and injected with local anesthetic. The wire was placed into the mass under stereotactic guidance. Next mammogram was obtained which showed the wire in good position. Patient was then brought to the operating room and general anesthesia was induced. The left breast was prepped and draped in usual sterile fashion. A curvilinear incision was marked outside the nipple and injected with local anesthetic. Incision was then made and deepened to the subcutaneous fat. The wire was brought into the incision. Flaps were raised on either side using electrocautery. The mass was grasped and the area surrounding it was dissected free using electrocautery. The area was marked and sent for x-ray which confirmed the clip and microcalcifications were removed. Next the cavity was irrigated and suctioned dry and hemostasis was obtained using electrocautery. Incision was closed with interrupted 3-0 Vicryl sutures and a running 4-0 Monocryl suture. Dermabond was applied. Fluffs and a surgical bra were applied. Patient was taken to PACU in stable condition. Surgical Findings: Clip and wire intact on specimen mammogram Complications Complications: No Admit VTE Documentation VTE Mechan Device Prophylaxis: SCD's 03/28/25 1310 Cosigner Signature (if applicable): CC: Dr. Denys Carson MD; Dr. Susan Pompa MD Signed Normal [facility] Urine Cultureon 03-28-2025 URC Culture exhibits no growth. Normal [facility] Comment on above: Performed By: #### M [id number] ####[facility] [id number] [place], [address] Urine cultureOrdered By: Samuel Taylor on 03-27-2025 Bacteria identified Cx Nom (U) Culture exhibits no growth. [facility] Surgery Visit Reporton 03-02 Surgery Visit Report [facility] [address] [place] [address] OFFICE VISIT Date of Service: 03/02/25 MR#: [id number] Acct: [id number] Name: KATHERINE GORDON Rep #: [id number] : 1970 Provider: Dr. Denys bee MD Age/Sex: 54/F Location: [facility] Status: Signed Intake Vital Signs 02/08/25 13:53 03/02/25 10:23 Height 5 ft 7 in 5 ft 7 in Weight: 195 lb 2 oz 196 lb BMI 30.5 30.7 BP 116/90 H 139/91 H Blood Pressure Location Rt brachial Rt brachial Position Sitting Sitting Respiration 17 17 Pulse 75 80 Pulse Source Monitor Monitor Temp 97.5 F L 97.6 F L Temp Source Temporal Temporal Pulse Oximetry (%) 96 96 Oxygen Delivery Method room air room air Intake Visit Reasons: DISCUSS BREAST SURGERY Chief Complaint: discuss breast surgery Is patient in pain?: No Allergies Penicillins (PCN) Allergy (Severe, Verified 03/02/25 10:24) Swelling Sulfa (Sulfonamide Antibiotics) Allergy (Intermediate, Verified 03/02/25 10:24) Other Medications ???Medication ???Instructions ???Recorded ???Confirmed ???Type ascorbic acid (vitamin C) 500 mg 1,000 mg PO DAILY 08/16/24 5 History capsule bupropion HCl 150 mg 24 hr tablet, 150 mg PO QAM 08/16/24 03/02/25 History extended release (Wellbutrin XL) ferrous sulfate 325 mg (65 mg 325 mg PO QDAY 08/16/24 03/02/25 H istory iron) tablet (Feosol) loratadine 10 mg tablet (Claritin) 10 mg PO DAILY PRN PRN allergy 1 03/02/25 History symptoms magnesium 200 mg tablet 200 mg PO QDAY 08/16/24 03/02/25 H istory [facility] Medical History Microcalcification of left breast on mammogram Post-menopausal Wears contact lenses Depression Anxiety Anemia Back pain Injury of head and neck Gastric reflux Non-smoker Shortness of breath on exertion History of edema Arthritis Fatigue Surgical History History of facial surgery Hx of wisdom tooth extraction History of dental surgery H/O foot surgery History of cholecystectomy Family History Father Heart disease Grandmother Heart disease Social History Smoking Status: Never smoker alcohol intake: never substance use type: does not use HPI HPI HPI: Patient is a 54-year-old female here for atypia during her stereotactic biopsy. She notes that she did get a hematoma after the biopsy but it is shrinking. ROS General General: Yes weight change and fatigue; No appetite, colon cancer, breast cancer or weakness HEENT HEENT: Yes eye surgery; No difficulty swallowing, eye injury, swollen glands or hoarseness Endo Endocrine: No thyroid disease, diabetes mellitus, thyroid cancer, Hair loss, heat intolerance or cold intolerance Skin Skin: No rash or changing moles Breast Breast: Yes abnormal mammogram; No left breast lump, right breast lump, nipple discharge, breast pain, abnormal US or breast enlargement Musc Musculoskeletal: Yes arthritis; No back problems, rheumatoid arthritis, gout or joint pain Cardio Cardiovascular: No murmur, pacemaker, heart disease, atrial fibrillation, high blood pressure, heart attack, heart stent, palpitations, shortness of breath with exertion or chest pain Psych Psychiatric: No depression, anxiety or hearing voices Resp Respiratory: No shortness of breath, Yes sleep apnea, No cough, No COPD, No asthma, No emphysema and No wheezing Gastro Gastrointestinal: No abdominal pain, No nausea or vomiting, No diarrhea, No constipation, Yes blood in stool, Yes acid reflux, Yes hemorrhoids, No ulcers, No gallbladder problem and Yes black,tarry stools Arturo Hematologic: No blood thinners, No blood disorders, No bleeding, No anemia and No blood clots Neuro Neurologic: No system reviewed and no additional complaints, except as documented, No as per HPI, No abnormal gait, No abnormal hearing, No abnormal movements, No abnormal speech, No behavioral changes, No burning sensations, No confusion, No convulsions, No disequilibrium, No dizziness, No localized weakness, No frequent falls, No headache(s), No lack of coordination, No loss of vision, No memory loss, Yes numbness, No other visual disturbances, No radicular pain, No restless legs, No sensory deficit, No syncope, Yes tingling, No tremor(s), No weakness and No other Exam Const General: cooperative Orientation: alert and oriented x3 HENMT Head: normal to inspection Neck Neck: normal visual inspection and full ROM Chest Chest palpation inspection: normal inspection of the chest Resp Effort Inspection: normal respirat (more content not included)... Normal [facility] Surgical pathology reportOrd ered By: Kristy Berman on 02-19-2025 Surgical pathology study [facility] Immunohistochemical Stainson 02-12-2025 Immunohistochemical Stains Patient Age/Sex Location Account Attending Physician KATHERINE GORDON 54/F BIR[place] [id number] Dr. Denys Carson MD Specimen: [id number] Received: 02/12/25 Status: FIGUEROA Ryder Num: [id number] Spec Type: BREAST BX Subm Dr: Dr. Denys Carson MD HEADER OPERATION: Left breast stereotactic biopsy PRE-OP DIAGNOSIS: Left breast calcifications upper inner anterior depth TISSUE SUBMITTED: A- Left breast core tissue Ischemic Time: 2 minute Fixation Time: 10.5 hours MICROSCOPIC DIAGNOSIS A. Left breast, calcifications, core biopsy: * Atypical ductal hyperplasia. * Calcifications present. * IHC for CK5/6, calponin, ER, and p40 support the diagnosis - see Comment. COMMENT The slides/images were reviewed in intradepartmental consultation by Dr Stanford Paz and Dr Macrina Storey ([facility] pathology division, [facility]). MICROSCOPIC DESCRIPTION Slides are reviewed. All matched controls reacted appropriately. These tests were developed and their performance characteristics determined by [facility]. They may not have been cleared or approved by the U.S. Food and Drug Administration. The FDA has determined that such clearance or approval is not necessary.??? The above immunohistochemical/dualIS H???markers are ordered and reviewed by the Pathologist. GROSS DESCRIPTION A. Received in formalin in a container labeled with the patient's name, date of , and left are approximately 3 maldonado-yellow core biopsies of fibrofatty tissue ranging from 1.7 x 0.5 cm to 2.2 x 0.5 cm. There are multiple core biopsy fragments measuring 2.0 x 1.4 x 0.3 cm in aggregate. The specimen is submitted in toto as follows:A1-3. 1 core per cassetteA4. Core biopsy fragments Total formalin fixation time: Between 6 and 72 hours. [facility] 02-12-2025 CPT:04751,32864, 50629p4 Patient Age/Sex Location Account Attending Physician KATHERINE GORDON 54/F BIR[place] [id number] Dr. Denys Carson MD Signed (signature on file) Dr. Kristy Berman MD 02/19/25 1614 [facility] Comment on above: Performed By: #### P [facility] #### [facility] [address] [place], [address] Operative Reporton Operative Report [facility] Medical Records Department [address] [place] [address] Operative Report 02/12/25 0932 MR#: [id number] Acct: [id number] Name: KATHERINE GORDON Rep #: [id number] : 1970 54 From: Denys Carson MD PCP: Dr. Susan Pompa MD Status:REG CLI Location: [facility] Operative Report (Standard) Operative Information Date of Procedure: 02/12/25 Pre-Operative Diagnosis: Left breast microcalcifications Post-Operative Diagnosis: Same Surgery/Procedure Performed: Stereotactic guided left breast core needle biopsy with placement of clip catalog library assistant: No Type of Anesthesia: Local Procedure Start Time: 09:05 Procedure Stop Time: : Select all DRAINS/GRAFTS/IMPLANTS that apply: None Estimated Blood Loss: 10 Specimen collected: Yes Description of specimen(s) removed: Left breast biopsy Description of surgery: Patient was brought to the stereotactic room and placed in the stereotactic table and the microcalcifications were localized with stereotactic views. The microcalcifications were targeted using the computer and then the needle was set up. The skin was prepped. The skin was injected with local anesthetic. A small veronica was made with a scalpel and the needle was placed into the breast and fired. Stereotactic images were once again obtained that showed that this was in good position. Next biopsies were obtained and the specimens were x-rayed. The specimen showed the microcalcifications. The clip was then placed into the breast and the needle was removed. Pressure was held to maintain hemostasis. Next a Steri-Strip and bandage were placed over the incision. Mammogram images were obtained after the biopsy. Surgical Findings: Left breast microcalcifications Complications Complications: No 02/12/25 0934 Cosigner Signature (if applicable): CC: Dr. Denys Carson MD; Dr. Susan Pompa MD Signed Normal [facility] Surgery Visit Reporton 02-08 Surgery Visit Report [facility] [address] [place] [address] OFFICE VISIT Date of Service: 02/08/25 MR#: [id number] Acct: [id number] Name: KATHERINE GORDON Rep #: [id number] : 1970 Provider: Dr. Denys bee MD Age/Sex: 54/F Location: [facility] Status: Signed Intake Vital Signs 10/06/24 09:07 02/08/25 13:53 Height 5 ft 7 in 5 ft 7 in Weight: 195 lb 2 oz BMI 30.5 BP 116/90 H Blood Pressure Location Rt brachial Position Sitting Respiration 17 Pulse 75 Pulse Source Monitor Temp 97.5 F L Temp Source Temporal Pulse Oximetry (%) 96 Oxygen Delivery Method room air Intake Visit Reasons: BIRADS 4- CALCIFICATIONS Chief Complaint: BIRADS 4- CALICIFICATIONS Is patient in pain?: No Allergies Penicillins (PCN) Allergy (Severe, Verified 02/08/25 13:54) Swelling Sulfa (Sulfonamide Antibiotics) Allergy (Intermediate, Verified 02/08/25 13:54) Other Medications ???Medication ???Instructions ???Recorded ???Confirmed ???Type ascorbic acid (vitamin C) 500 mg 1,000 mg PO DAILY 08/16/24 5 History capsule bupropion HCl 150 mg 24 hr tablet, 150 mg PO QAM 08/16/24 02/08/25 History extended release (Wellbutrin XL) ferrous sulfate 325 mg (65 mg 325 mg PO QDAY 08/16/24 02/08/25 H istory iron) tablet (Feosol) loratadine 10 mg tablet (Claritin) 10 mg PO DAILY PRN PRN allergy 1 02/08/25 History symptoms magnesium 200 mg tablet 200 mg PO QDAY 08/16/24 02/08/25 H istory PFSH Medical History (Updated 02/07/25 @ 07:20 by Vicki Kwong) Microcalcification of left breast on mammogram Post-menopausal Wears contact lenses Depression Anxiety Anemia Back pain Injury of head and neck Gastric reflux Non-smoker Shortness of breath on exertion History of edema Arthritis Fatigue Surgical History History of facial surgery Hx of wisdom tooth extraction History of dental surgery H/O foot surgery History of cholecystectomy Family History Father Heart disease Grandmother Heart disease Social History Smoking Status: Never smoker alcohol intake: never substance use type: does not use HPI HPI HPI: Patient is a 54-year-old female here for microcalcifications of the left breast. She does not describe any trauma. She says that she was having sharp pain in that breast about a year ago. She has not had a mammogram in a couple years. ROS General General: Yes weight change and fatigue; No appetite, colon cancer, breast cancer or weakness HEENT HEENT: Yes eye surgery; No difficulty swallowing, eye injury, swollen glands or hoarseness Endo Endocrine: No thyroid disease, diabetes mellitus, thyroid cancer, Hair loss, heat intolerance or cold intolerance Skin Skin: No rash or changing moles Breast Breast: Yes abnormal mammogram; No left breast lump, right breast lump, nipple discharge, breast pain, abnormal US or breast enlargement Musc Musculoskeletal: Yes arthritis; No back problems, rheumatoid arthritis, gout or joint pain Cardio Cardiovascular: No murmur, pacemaker, heart disease, atrial fibrillation, high blood pressure, heart attack, heart stent, palpitations, shortness of breath with exertion or chest pain Psych Psychiatric: No depression, anxiety or hearing voices Resp Respiratory: No shortness of breath, Yes sleep apnea, No cough, No COPD, No asthma, No emphysema and No wheezing Gastro Gastrointestinal: No abdominal pain, No nausea or vomiting, No diarrhea, No constipation, Yes blood in stool, Yes acid reflux, Yes hemorrhoids, No ulcers, No gallbladder problem and Yes black,tarry stools Arturo Hematologic: No blood thinners, No blood disorders, No bleeding, No anemia and No blood clots Neuro Neurologic: No system reviewed and no additional complaints, except as documented, No as per HPI, No abnormal gait, No abnormal hearing, No abnormal movements, No abnormal speech, No behavioral changes, No burning sensations, No confusion, No convulsions, No disequilibrium, No dizziness, No localized weakness, No frequent falls, No headache(s), No lack of coordination, No loss of vision, No memory loss, Yes numbness, No other visual disturbances, No radicular pain, No restless legs, No sensory deficit, No syncope, Yes tingling, No tremor(s), No weakness and No other Exam Const General: cooperative Orientation: alert and oriented x3 HENMT Head: normal to inspection Neck Neck: normal visual inspection and full ROM Chest Chest palpation inspection: normal inspection of the chest Resp Effort Inspection: normal respiratory effor (more content not included)... Normal [facility] Breast imaging reportOrdered By: Ya Valadez on 02-02-2025 Study report [facility] Imaging Services [address] [place], [place] [address] DIAG MAMM W/CAD, UNILAT MR#: [id number] Acct: [id number] Name: KATHERINE GORDON Rep #: [id number] : 1970 F 54 From: Vida Valadez MD PCP: Dr. Susan Pompa MD Status: [facility] Study:DIAG MAMM W/CAD, UNILAT Date of Exam: 02/02/25 Exam# [id number] Ordering Dr: Rene Pompa MD EXAM: DIAG MAMM W/CAD, UNILAT 02/02/2025 CLINICAL HISTORY: 54-year-old female presents for left breast findings seen examination 01/22/2025. No family history of breast cancer. TECHNIQUE: Bilateral Diagnostic digital breast tomosynthesis with 2D and 3D images. Computer aided detection. COMPARISON: Prior exam(s) dated 01/22/2025, 11/07/2019. FINDINGS: TISSUE DENSITY: The breast tissue is composed of scattered area of fibroglandular density. Left breast Mammographic Findings: There is a small group of fine pleomorphic calcifications in the upper inner left breast at anterior depth, measuring up to 0.8 cm in span. BI/DIAG MAMM W/CAD, UNILAT IMPRESSION: The small group of fine pleomorphic calcifications in the upper inner left breast at anterior depth requires further evaluation. Recommend tissue sampling with stereotactic/tomosynthesis guided core needle biopsy. Left Breast: BIRADS 4C SUSPICIOUS ABNORMALITY-High suspicion for malignancy (50-95% likelihood of cancer). OVERALL FINAL ASSESSMENT: BIRADS 4C SUSPICIOUS ABNORMALITY-High suspicion for malignancy (50-95% likelihood of cancer). RECOMMENDATION: Biopsy is recommended. A letter with findings and recommendations will be mailed to the patient. Reading Location: [facility] CC: Dr. Susan Pompa MD ~ Insurance Rater: Signed [facility] DIAG MAMM W/CAD, UNILATon DIAG MAMM W/CAD, UNILAT [facility] Imaging Services [address] [place], [place] [id number] DIAG MAMM W/CAD, UNILAT MR#: [id number] Acct: [id number] Name: KATHERINE GORDON Rep #: [id number] : 1970 F 54 From: Ya Valadez MD PCP: Dr. Susan Pompa MD Status: [facility] CLI Study: DIAG MAMM W/CAD, UNILAT Date of Exam: 02/02/25 Exam# [id number] Ordering Dr: Susan Pompa MD EXAM: DIAG MAMM W/CAD, UNILAT 02/02/2025 CLINICAL HISTORY: 54-year-old female presents for left breast findings seen examination 01/22/2025. No family history of breast cancer. TECHNIQUE: Bilateral Diagnostic digital breast tomosynthesis with 2D and 3D images. Computer aided detection. COMPARISON: Prior exam(s) dated 01/22/2025, 11/07/2019. FINDINGS: TISSUE DENSITY: The breast tissue is composed of scattered area of fibroglandular density. Left breast Mammographic Findings: There is a small group of fine pleomorphic calcifications in the upper inner left breast at anterior depth, measuring up to 0.8 cm in span. BI/DIAG MAMM W/CAD, UNILAT IMPRESSION: The small group of fine pleomorphic calcifications in the upper inner left breast at anterior depth requires further evaluation. Recommend tissue sampling with stereotactic/tomosynthesis guided core needle biopsy. Left Breast: BIRADS 4C SUSPICIOUS ABNORMALITY-High suspicion for malignancy (50-95% likelihood of cancer). OVERALL FINAL ASSESSMENT: BIRADS 4C SUSPICIOUS ABNORMALITY-High suspicion for malignancy (50-95% likelihood of cancer). RECOMMENDATION: Biopsy is recommended. A letter with findings and recommendations will be mailed to the patient. Reading Location: [facility] CC: Dr. Susan Pompa MD Insurance Rater: Signed Normal [facility] Breast imaging reportOrdered By: Ya Valadez on 01-23-2025 Study report [facility] Imaging Services [address] [place] [address] SCRN MAMM (CAD)W/ADAM BILAT MR#: [id number] Acct: [id number] Name: KATHERINE GORDON Rep #: [id number] : 1970 F 54 From: Vida Valadez MD PCP: Dr. Susan Pompa MD Status: REG CLI Study:SCRN MAMM (CAD)W/ADAM BILAT Date of Exa m: 01/22/25 Exam# [id number] Ordering Dr: Rene Pompa MD EXAM: SCRN MAMM (CAD)W/ADAM BILAT 01/22/2025 CLINICAL HISTORY: F, Age 54 y/o , SCREENING TECHNIQUE: Bilateral screening digital breast tomosynthesis with 2D and 3D images. Computeraided detection. COMPARISON: Prior exam(s) dated 11/07/2019. FINDINGS: TISSUE DENSITY: The breast tissue is composed of scattered area of fibroglandular density. Bilateral Breast Mammographic Findings: There is a group of calcifications in the upper inner left breast at anterior depth. No significant masses, calcifications or other abnormalities are identified in the right breast. BI/SCRN MAMM (CAD)W/ADAM BILAT IMPRESSION: The group of calcifications in the upper inner left breast at anterior depth requires further evaluation. Recommend diagnostic mammogram with spot magnification views. Right Breast: BIRADS 1 NEGATIVE. Left Breast: BIRADS 0 Incomplete: Need additional imaging evaluation and/or prior mammograms for comparison.. OVERALL FINAL ASSESSMENT: BIRADS 0 Incomplete: Need additional imaging evaluation and/or prior mammograms for comparison.. RECOMMENDATION: Recommendation: Magnification views. A letter with findings and recommendations will be mailed to the patient. Reading Location: [id number] CC: Dr. Susan Pompa MD ~ Insurance Rater: Signed [facility] SCRN MAMM (CAD)W/ADAM BILATo n 01-22-2025 SCRN MAMM (CAD)W/ADAM BILAT [facility] Imaging Services [address] [place], [place] [id number] SCRN MAMM (CAD)W/ADAM BILAT MR#: [id number] Acct: [id number] Name: KATHERINE GORDON Rep #: [id number] : 1970 F 54 From: Ya Valadez MD PCP: Dr. Susan Pompa MD Status: REG CLI Study: SCRN MAMM (CAD)W/ADAM BILAT Date of Exam: 05/11 Exam# [id number] Ordering Dr: Susan Pompa MD EXAM: SCRN MAMM (CAD)W/ADAM BILAT 01/22/2025 CLINICAL HISTORY: F, Age 54 y/o , SCREENING TECHNIQUE: Bilateral screening digital breast tomosynthesis with 2D and 3D images. Computer aided detection. COMPARISON: Prior exam(s) dated 11/07/2019. FINDINGS: TISSUE DENSITY: The breast tissue is composed of scattered area of fibroglandular density. Bilateral Breast Mammographic Findings: There is a group of calcifications in the upper inner left breast at anterior depth. No significant masses, calcifications or other abnormalities are identified in the right breast. BI/SCRN MAMM (CAD)W/ADAM BILAT IMPRESSION: The group of calcifications in the upper inner left breast at anterior depth requires further evaluation. Recommend diagnostic mammogram with spot magnification views. Right Breast: BIRADS 1 NEGATIVE. Left Breast: BIRADS 0 Incomplete: Need additional imaging evaluation and/or prior mammograms for comparison.. OVERALL FINAL ASSESSMENT: BIRADS 0 Incomplete: Need additional imaging evaluation and/or prior mammograms for comparison.. RECOMMENDATION: Recommendation: Magnification views. A letter with findings and recommendations will be mailed to the patient. Reading Location: [facility] CC: Dr. Susan Pompa MD Insurance Rater: Signed Normal [facility] Absolute lymphocyte countOrd ered By: Susan Pompa on 01-04-2025 Lymphocytes Auto (Unsp spec) [#/Vol] 1.70 10*3/uL 0.83-4.51 [facility] Absolute neutrophil countOrd ered By: Susan Pompa on 01-04-2025 Neutrophils (Bld) [#/Vol] 6.8 10*3/uL 2.0-7.7 [facility] Automated lymphocyte count a s percentage of total leukocytesOrdered By: Susan Pompa on 01-04-2025 Lymphocytes/100 WBC Auto (Unsp spec) 18.5 % Low 19-41 [facility] Basophil percentageOrdered B y: Susan Pompa on 01-04-2025 Basophils/100 WBC (Bld) 0.4 % 0-1 [facility] CBC W/Diff, Automatedon 03- 0-2024 Absolute Lymph 1.70 X10 3/uL Normal 0.83-4.51 [facility] Comment on above: Performed By: #### L 100.0100, L503.6550, L503.6030 #### [facility] [address] [place], [address] Absolute Neut 6.8 X10 3/uL Normal 2.0-7.7 [facility] Comment on above: Performed By: #### L 100.0100, L503.6550, L503.6030 #### [facility] [address] [place], [address] Basophils/100 WBC (Bld) 0.4 % Normal 0-1 [facility] Comment on above: Performed By: #### L 100.0100, L503.6550, L503.6030 #### [facility] [address] [place], [address] Eosinophils/100 WBC (Bld) 0.8 % Normal 0-5 [facility] Comment on above: Performed By: #### L 100.0100, L503.6550, L503.6030 #### [facility] [address] [place], [address] Erythrocyte distribution width (RBC) [Ratio] 17.3 % High 11.6-14.6 [facility] Comment on above: Performed By: #### L 100.0100, L503.6550, L503.6030 #### [facility] [address] [place], [address] Hematocrit (Bld) [Volume fraction] 41.1 % Normal 37-47 [facility] Comment on above: Performed By: #### L 100.0100, L503.6550, L503.6030 #### [facility] [address] [place], [address] Hemoglobin (Bld) [Mass/Vol] 13.2 g/dL Normal 12.0-15.0 [facility] Comment on above: Performed By: #### L 100.0100, L503.6550, L503.6030 #### [facility] [address] [place], [address] IG% 0.200 Normal 0.0-0.9 [facility] Comment on above: Result Comment: IG% - Immature Granulocytes (promyelocytes, myelocytes and metamyelocytes) > 1% indicates that a LEFT SHIFT is Present. Performed By: #### L 100.0100, L503.6550, L503.6030 #### [facility] [address] [place], [address] Lymphocytes/100 WBC (Bld) 18.5 % Low 19-41 [facility] Comment on above: Performed By: #### L 100.0100, L503.6550, L503.6030 #### [facility] [address] [place], [address] MCH (RBC) [Entitic mass] 26.0 pg Low 27.0-32.0 [facility] Comment on above: Performed By: #### L 100.0100, L503.6550, L503.6030 #### [facility] [address] [place], [address] MCHC (RBC) [Mass/Vol] 32.1 g/dL Normal 32-36 [facility] Comment on above: Performed By: #### L 100.0100, L503.6550, L503.6030 #### [facility] [address] [place], [address] MCV (RBC) [Entitic vol] 80.9 fL Low 81-99 [facility] Comment on above: Performed By: #### L 100.0100, L503.6550, L503.6030 #### [facility] [address] [place], [address] Monocytes/100 WBC (Bld) 6.3 % Normal 0-10 [facility] Comment on above: Performed By: #### L 100.0100, L503.6550, L503.6030 #### [facility] [address] [place], [address] Neutrophils/100 WBC (Bld) 73.8 % High 47-70 [facility] Comment on above: Performed By: #### L 100.0100, L503.6550, L503.6030 #### [facility] [address] [place], [address] Nucleated RBC (Bld) [#/Vol] 0 10*3/uL Normal 0-5 [facility] Comment on above: Performed By: #### L 100.0100, L503.6550, L503.6030 #### [facility] [address] [place], [address] Platelet mean volume (Bld) [Entitic vol] 10.5 fL Normal 6.2-12.0 [facility] Comment on above: Performed By: #### L 100.0100, L503.6550, L503.6030 #### [facility] [address] [place], [address] Platelets (Bld) [#/Vol] 322 10*3/uL Normal 150-450 [facility] Comment on above: Performed By: #### L 100.0100, L503.6550, L503.6030 #### [facility] [address] [place], [address] RBC (Bld) [#/Vol] 5.08 10*6/uL Normal 4.2-5.4 [facility] Comment on above: Performed By: #### L 100.0100, L503.6550, L503.6030 #### [facility] [address] [place], [address] RDW SD 51.1 fl High 35.1-43.9 [facility] Comment on above: Performed By: #### L 100.0100, L503.6550, L503.6030 #### [facility] [address] [place], [address] WBC (Bld) [#/Vol] 9.2 10*3/uL Normal 4.4-11.0 [facility] Comment on above: Performed By: #### L 100.0100, L503.6550, L503.6030 #### [facility] [address] [place], [address] Calculated total iron bindin g capacityOrdered By: Susan Pompa on 01-04-2025 Total Iron Binding Capacity 319 ug/dL 250-450 [facility] Chlamydia and Neisseria gono rrhoeae detection by PCROrdered By: Susan Pompa on 01-04-2025 Chlamydia/Neisseria (PCR) [facility] Eosinophil percentageOrdered By: Susan Peña on 01-04-2025 Eosinophils/100 WBC (Bld) 0.8 % 0-5 [facility] Erythrocyte distribution wid th ratioOrdered By: Susanrandall Pompa on 01-04-2025 Erythrocyte distribution width (RBC) [Ratio] 17.3 % High 11.6-14.6 [facility] Erythrocyte distribution wid th standard deviationOrdered By: Susanrandall Pompa on 01-04-2025 Erythrocyte distribution width (RBC) [Entitic vol] 51.1 fL High 35.1-43.9 [facility] Erythrocyte distribution width (RBC) [Ratio] 51.1 fl High 35.1-43.9 [facility] Ferritinon 01-04-2025 Ferritin [Mass/Vol] 16 ng/mL Low 22-378 [facility] Comment on above: Performed By: #### L 100.0100, L503.6550, L503.6030 #### [facility] [address] [place] [address]. [place], [address] Hematocrit Auto (Bld) [Volum e fraction]Ordered By: Susan Pompa on 01-04-2025 Hematocrit (Bld) [Volume fraction] 41.1 % 37-47 [facility] Hemoglobin measurementOrdere d By: Susan Pompa on 01-04-2025 Hemoglobin (Bld) [Mass/Vol] 13.2 g/dL 12.0-15.0 [facility] Immature granulocytes/100 WB C Auto (Bld)Ordered By: Susan Pompa on 01-04-2025 Immature granulocytes/100 WBC (Bld) 0.200 % 0.0-0.9 [facility] Comment on above: IG% - Immature Granu locytes (promyelocytes, myelocytes and metamyelocytes) > 1% indicates that a LEFT SHIFT is Present. Iron (Unsp spec) [Mass/Mass] Ordered By: Susan Pompa on 01-04-2025 Iron [Mass/Vol] 24 ug/dL Low 50-170 [facility] Iron measurement (mass/mass) Ordered By: Susan Pompa on 01-04-2025 Iron (Unsp spec) [Mass/Mass] 24 ug/dL Low 50-170 [facility] Iron saturation [Mass fracti on]Ordered By: Susan Pompa on 01-04-2025 Iron Saturation 7.0 % Low 13-59 [facility] Iron+Iron Binding Capacityon 01-04-2025 Iron [Mass/Vol] 24 ug/dL Low 50-170 [facility] Comment on above: Performed By: #### L 100.0100, L503.6550, L503.6030 #### [facility] [address] [place], [address] IRON SATURATION 7.0 Low 13-59 [facility] Comment on above: Performed By: #### L 100.0100, L503.6550, L503.6030 #### [facility] [address] [place], [address] TIBC 319 ug/dL Normal 250-450 [facility] Comment on above: Performed By: #### L 100.0100, L503.6550, L503.6030 #### [facility] [address] [place], [address] UIBC 295 ug/dL Normal 228-428 [facility] Comment on above: Performed By: #### L 100.0100, L503.6550, L503.6030 #### [facility] [address] [place], [address] Lymphocytes Auto (Unsp spec) [#/Vol]Ordered By: Susan Pompa on 01-04-2025 Lymphocytes (Bld) [#/Vol] 1.70 10*3/uL 0.83-4.51 [facility] Lymphocytes/100 WBC Auto (Un sp spec)Ordered By: Susan Pompa on 01-04-2025 Lymphocytes/100 WBC (Bld) 18.5 % Low 19-41 [facility] M8200.2203on 01-04-2025 M8200.2203 Pending Chlamydia Trachomatis PCR NEGATIVE for Chlamydia trachomatis N. gonorrhoeae PCR Negative for N. gonorrhoeae Normal [facility] Comment on above: Performed By: #### 8200.2203 #### [facility] [address] [place], [address] MCV (mean corpuscular volume ) determinationOrdered By: Susan Pompa on 01-04-2025 MCV (RBC) [Entitic vol] 80.9 fL Low 81-99 [facility] Mean corpuscular hemoglobin (MCH) determinationOrdered By: Susan Pompa on 01-04-2025 MCH (RBC) [Entitic mass] 26.0 pg Low 27.0-32.0 [facility] Mean corpuscular hemoglobin concentration (MCHC) determinationOrdered By: Susan Pompa on 01-04-2025 MCHC (RBC) [Mass/Vol] 32.1 g/dL 32-36 [facility] Mean platelet volume determi nationOrdered By: Susan Pompa on 01-04-2025 Platelet mean volume (Bld) [Entitic vol] 10.5 fL 6.2-12.0 [facility] Monocyte percentageOrdered B y: Susan Pompa on 01-04-2025 Monocytes/100 WBC (Bld) 6.3 % 0-10 [facility] Neutrophil percentageOrdered By: Susan Pompa on 01-04-2025 Neutrophils/100 WBC (Bld) 73.8 % High 47-70 [facility] No Panel InformationOrdered By: Susan Pompa on 01-04-2025 Unsaturated Iron Binding Capacity 295 ug/dL 228-428 [facility] Nucleated red blood cell per centageOrdered By: Susan Pompa on 01-04-2025 Nucleated RBC/100 WBC (Bld) [Ratio] 0 % 0-5 [facility] Platelet countOrdered By: Norman Pompa on 01-04-2025 Platelets (Bld) [#/Vol] 322 10*3/uL 150-450 [facility] RBC Auto (Bld) [#/Vol]Ordere d By: Susan Pompa on 01-04-2025 RBC (Bld) [#/Vol] 5.08 10*6/uL 4.2-5.4 [facility] Serum or plasma ferritin eyal surement (mass/volume)Ordered By: Susan Pompa on 01-04-2025 Ferritin [Mass/Vol] 16 ng/mL Low 22-378 [facility] Serum or plasma iron saturat ion measurement (mass fraction)Ordered By: Susan Pompa on 01-04-2025 Iron saturation [Mass fraction] 7.0 % Low 13-59 [facility] White blood cell (WBC) count Ordered By: Susan Pompa on 01-04-2025 WBC (Bld) [#/Vol] 9.2 10*3/uL 4.4-11.0 [facility] Colonoscopy Reporton 024 Colonoscopy Report [facility] Medical Records Department [address] [place] [address] Colonoscopy Report MR#: [id number] Acct: [id number] Name: KATHERINE GORDON Rep #: [id number] : 1970 53 From: Denys Carson MD PCP: Dr. Susan Pompa MD Status:[facility] Patient Name: Katherine Weldon Procedure Date: 10/06/2024 9:52 AM Date of : 1970 Age: 53 Procedure: Colonoscopy Indications: Rectal bleeding Providers: Denys Carson MD Referring MD: Susan Pompa Medicines: Propofol per Anesthesia Patient Profile: This is a 53 year old female. Refer to note in patient chart for documentation of history and physical. Patient has symptoms. Last Colonoscopy: none. The patient's first colonoscopy is today. Complications: No immediate complications. Procedure: Pre-Anesthesia Assessment: - Prior to the procedure, a History and Physical was performed, and patient medications and allergies were reviewed. The patient's tolerance of previous anesthesia was also reviewed. The risks and benefits of the procedure and the sedation options and risks were discussed with the patient. All questions were answered, and informed consent was obtained. Prior Anticoagulants: The patient has taken no anticoagulant or antiplatelet agents. After reviewing the risks and benefits, the patient was deemed in satisfactory condition to undergo the procedure. - Prior to the procedure, a History and Physical was performed, and patient medications and allergies were reviewed. The patient's tolerance of previous anesthesia was also reviewed. The risks and benefits of the procedure and the sedation options and risks were discussed with the patient. All questions were answered, and informed consent was obtained. Prior Anticoagulants: The patient has taken no anticoagulant or antiplatelet agents. After reviewing the risks and benefits, the patient was deemed in satisfactory condition to undergo the procedure. After I obtained informed consent, the scope was passed under direct vision. Throughout the procedure, the patient's blood pressure, pulse, and oxygen saturations were monitored continuously. The Colonoscope was introduced through the anus and advanced to the cecum, identified by appendiceal orifice and ileocecal valve. The colonoscopy was performed without difficulty. The patient tolerated the procedure well. The quality of the bowel preparation was good. The ileocecal valve, appendiceal orifice, and rectum were photographed. Scope In: 9:53:23 AM Scope Withdrawal Time 0 hours 6 minutes 6 seconds Scope Out: 10:07:24 AM Total Procedure Duration Time 0 hours 14 minutes 1 second Findings: The entire examined colon appeared normal on direct and retroflexion views. Impression: - The entire examined colon is normal on direct and retroflexion views. - No specimens collected. Recommendation: - Discharge patient to home. - Resume previous diet. - Continue present medications. - Repeat colonoscopy in 10 years for screening purposes. Procedure Code(s): --- Professional --- 79015, Colonoscopy, flexible; diagnostic, including collection of specimen(s) by brushing or washing, when performed (separate procedure) Diagnosis Code(s): --- Professional --- K62.5, Hemorrhage of anus and rectum CPT copyright 2021 [employer]. All rights reserved. The codes documented in this report are preliminary and upon data coder operator review may be revised to meet current compliance requirements. Denys Carson MD 10/06/2024 10:10:27 AM This report has been signed electronically. Number of Addenda: 0 Note Initiated On: 10/06/2024 9:52 AM 10/06/24 1010 Date Denys Carson MD Cosign Signature: Date (if indicated) CC: Dr. Denys Carson MD; Dr. Susan Pompa MD Date Dictated: 10/06/24 0952 Date Transcribed: Insurance Rater: PINA Signed Normal [facility] EGD Reporton 10-06-2024 EGD Report [facility] Medical Records Department [address] [place] [address] EGD Report MR#: [id number] Acct: [id number] Name: KATHERINE GORDON Rep #: [id number] : 1970 53 From: Denys Carson MD PCP: Dr. Susan Pompa MD Status:[facility] Patient Name: Katherine Weldon Procedure Date: 10/06/2024 9:40 AM Date of : 1970 Age: 53 Procedure: Upper GI endoscopy Indications: Epigastric abdominal pain, Heartburn Providers: Denys Carson MD Referring MD: Susan Pompa Medicines: Propofol per Anesthesia Patient Profile: This is a 53 year old female. Refer to note in patient chart for documentation of history and physical. Patient has symptoms. Complications: No immediate complications. Procedure: Pre-Anesthesia Assessment: - Prior to the procedure, a History and Physical was performed, and patient medications and allergies were reviewed. The patient's tolerance of previous anesthesia was also reviewed. The risks and benefits of the procedure and the sedation options and risks were discussed with the patient. All questions were answered, and informed consent was obtained. Prior Anticoagulants: The patient has taken no anticoagulant or antiplatelet agents. After reviewing the risks and benefits, the patient was deemed in satisfactory condition to undergo the procedure. After obtaining informed consent, the endoscope was passed under direct vision. Throughout the procedure, the patient's blood pressure, pulse, and oxygen saturations were monitored continuously. The Colonoscope was introduced through the mouth, and advanced to the second part of duodenum. The upper GI endoscopy was accomplished without difficulty. The patient tolerated the procedure well. Scope In: 9:50:34 AM Scope Out: 9:52:19 AM Total Procedure Duration Time 0 hours 1 minute 45 seconds Findings: The esophagus was normal. The stomach was normal. The examined duodenum was normal. Impression: - Normal esophagus. - Normal stomach. - Normal examined duodenum. - No specimens collected. Recommendation: - Discharge patient to home. - Resume previous diet. - Continue present medications. Procedure Code(s): --- Professional --- 86208, Esophagogastroduodenoscopy , flexible, transoral; diagnostic, including collection of specimen(s) by brushing or washing, when performed (separate procedure) Diagnosis Code(s): --- Professional --- R10.13, Epigastric pain R12, Heartburn CPT copyright 2021 [employer]. All rights reserved. The codes documented in this report are preliminary and upon data coder operator review may be revised to meet current compliance requirements. Denys Carson MD 10/06/2024 10:09:07 AM This report has been signed electronically. Number of Addenda: 0 Note Initiated On: 10/06/2024 9:40 AM 10/06/24 1009 Date Denys Carson MD Cosigner Signature: Date (if indicated) CC: Dr. Denys Carson MD; Dr. Susan Pompa MD Date Dictated: 10/06/24939 Date Transcribed: Insurance Rater: PINA Signed [facility] MR/POSTOP.Ankush 10-06-2024 MR/POSTOP.[facility] Medical Records Department [address] [place] [address] Anesthesia Postop Eval I 10/06/24 1014 MR#: [id number] Acct: [id number] Name: KATHERINE GORDON Rep #: [id number] : 1970 53 From: Landen Matias PCP: Dr. Susan Pompa MD Status:[facility] Y Race: C Location: EN Anesthesia: Postop Eval I Current Vital Signs Temperature: 98 F Pulse Rate: 71 Blood Pressure: 109/79 Respiratory Rate: 16 Pulse Ox: 95 Oxygen Delivery Method: Room Air Assessment Airway patent: Yes Spontaneous unlabored respirations: Yes Mental status: Asleep nausea: No Vomiting: No Anesthesia Complication: No Fluid Hydration Crystalloid volume administer (ml): 60 Total IV fluid infused: 60 Progress Note Anesthesia document: Postop Eval 1 completed: Yes 10/06/24 1015 Date Landen Matias Cosigner Signature: Date CC: Signed Normal [facility] MR/[id number] 10-06-2024 [facility] Medical Records Department [address] [place] [address] Anesthesia Postop Eval II 10/06/24 1211 MR#: [id number] Acct: [id number] Name: KATHERINE GORDON Rep #: [id number] : 1970 53 From: Alpesh Dunbar MD PCP: Dr. Susan Pompa MD Status:[facility] Y Race: C Location: EN Anesthesia Postop Eval I Sum Postop Eval Completion status Anesthesia document: Postop Eval 1 completed: Yes Anesthesia Postop Eval I Summary Anesthesia Postop Eval I Summary: Anesthesia Postop Eval I: Assessment Summary Airway patent Yes 10/06/24 10:15 [email or web address] Spontaneous unlabored Yes 10/06/24 10:15 [email or web address] respirations Mental status Asleep 10/06/24 10:15 [email or web address] nausea No 10/06/24 10:15 [email or web address] Vomiting No 10/06/24 10:15 [email or web address] Anesthesia Postop Eval I: Fluid Summary Crystalloid volume administer 60 10/06/24 10:15 [email or web address] (ml) Colloids volume administered ( ml) Blood Product volume administered (ml) Total IV fluid infused 60 10/06/24 10:15 [email or web address] Anesthesia Postop Eval I: Summary Notes Anesthesia Complication No 10/06/24 10:15 [email or web address] Anesthesia Complication Comment: Post-operative progress note Anesthesia: Postop Eval II Evaluation Mental status: Awake Pain Level: 0 nausea: No Vomiting: No 10/06/24 1211 Date Alpesh Dunbar MD Cosigner Signature: Date CC: Signed Normal [facility] Vital Signs Date Time Vital Sign Value Performing Clinician Faci lity 07-23-2025 10:14-0400 Body height 170.[address] Susan Pompa MD Work Phone: [facility] 07-23-2025 10:13-0400 Body mass index (BMI) [Ratio] 32.3 kg/m2 Dr. Susan Pompa MD Work Phone: [facility] 07-23-2025 10:13-0400 Body weight 93.[address] Susan Pompa MD Work Phone: [facility] 07-23-2025 10:13-0400 Diastolic blood pressure 92 mm[Hg] Dr. Susan Pompa MD Work Phone: [facility] 07-23-2025 10:13-0400 Systolic blood pressure 152 mm[Hg] Dr. Susan Pompa MD Work Phone: [facility] 05-25-2025 11:33-0400 Body height 170.[address] Susan Pompa MD Work Phone: [facility] 05-25-2025 11:33-0400 Body mass index (BMI) [Ratio] 31.8 kg/m2 Dr. Susan Pompa MD Work Phone: [facility] 05-25-2025 11:33-0400 Body weight 92.[address] Susan Pompa MD Work Phone: [facility] 05-25-2025 11:33-0400 Diastolic blood pressure 100 mm[Hg] Dr. Susan Pompa MD Work Phone: [facility] 05-25-2025 11:33-0400 Systolic blood pressure 173 mm[Hg] Dr. Susan Pompa MD Work Phone: [facility] 03-28-2025 14:30-0400 Body temperature 97.1 [degF] Dr. Susan Pompa MD Work Phone: [facility] 03-28-2025 14:30-0400 Diastolic blood pressure 86 mm[Hg] Dr. Susan Pompa MD Work Phone: [facility] 03-28-2025 14:30-0400 Heart rate 74 /min Dr. Susan Pompa MD Work Phone: [facility] 03-28-2025 14:30-0400 Respiratory rate 16 /min Dr. Susan Pompa MD Work Phone: [facility] 03-28-2025 14:30-0400 SaO2% (BldA) [Mass fraction] 98 % Dr. Susan Pompa MD Work Phone: [facility] 03-28-2025 14:30-0400 Systolic blood pressure 156 mm[Hg] Dr. Susan Pompa MD Work Phone: [facility] 03-28-2025 10:33-0400 Body height 170.[address] Susan Pompa MD Work Phone: [facility] 03-28-2025 10:33-0400 Body mass index (BMI) [Ratio] 30.8 kg/m2 Dr. Susan Pompa MD Work Phone: [facility] 03-28-2025 10:33-0400 Body weight 89.[address] Susan Pompa MD Work Phone: [facility] 03-02-2025 10:23-0400 Body height 170.[address] Susan Pompa MD Work Phone: [facility] 03-02-2025 10:23-0400 Body mass index (BMI) [Ratio] 30.7 kg/m2 Dr. Susan Pompa MD Work Phone: [facility] 03-02-2025 10:23-0400 Body temperature 97.6 [degF] Dr. Susan Pompa MD Work Phone: [facility] 03-02-2025 10:23-0400 Body weight 88.[address] Susan Pompa MD Work Phone: [facility] 03-02-2025 10:23-0400 Diastolic blood pressure 91 mm[Hg] Dr. Susan Pompa MD Work Phone: [facility] 03-02-2025 10:23-0400 Heart rate 80 /min Dr. Susan Pompa MD Work Phone: [facility] 03-02-2025 10:23-0400 Respiratory rate 17 /min Dr. Susan Pompa MD Work Phone: [facility] 03-02-2025 10:23-0400 SaO2% (BldA) [Mass fraction] 96 % Dr. Susan Pompa MD Work Phone: [facility] 03-02-2025 10:23-0400 Systolic blood pressure 139 mm[Hg] Dr. Susan Pompa MD Work Phone: [facility] 02-08-2025 13:53-0400 Body height 170.[address] Susan Pompa MD Work Phone: [facility] 02-08-2025 13:53-0400 Body mass index (BMI) [Ratio] 30.5 kg/m2 Dr. Susan Pompa MD Work Phone: [phone] [place] [address] 02-08-2025 13:53-0400 Body temperature 97.5 [degF] Dr. Susan Pompa MD Work Phone: [facility] 02-08-2025 13:53-0400 Body weight 88.[address] Susan Pompa MD Work Phone: [facility] 02-08-2025 13:53-0400 Diastolic blood pressure 90 mm[Hg] Dr. Susan Pompa MD Work Phone: [facility] 02-08-2025 13:53-0400 Heart rate 75 /min Dr. Susan Pompa MD Work Phone: [facility] 02-08-2025 13:53-0400 Respiratory rate 17 /min Dr. Susan Pompa MD Work Phone: [facility] 02-08-2025 13:53-0400 SaO2% (BldA) [Mass fraction] 96 % Dr. Susan Pompa MD Work Phone: [facility] 02-08-2025 13:53-0400 Systolic blood pressure 116 mm[Hg] Dr. Susan Pompa MD Work Phone: [facility] 10-06-2024 10:31-0500 Body temperature 98.3 [degF] Dr. Susan Pompa MD Work Phone: [facility] 10-06-2024 10:31-0500 Diastolic blood pressure 80 mm[Hg] Dr. Susan Pompa MD Work Phone: [facility] 10-06-2024 10:31-0500 Heart rate 63 /min Dr. Susan Pompa MD Work Phone: [facility] 10-06-2024 10:31-0500 Respiratory rate 18 /min Dr. Susan Pompa MD Work Phone: [facility] 10-06-2024 10:31-0500 SaO2% (BldA) [Mass fraction] 94 % Dr. Susan Pompa MD Work Phone: [facility] 10-06-2024 10:31-0500 Systolic blood pressure 114 mm[Hg] Dr. Susan Pompa MD Work Phone: [facility] 10-06-2024 09:07-0500 Body height 170.[address] Susan Pompa MD Work Phone: [facility] 10-06-2024 09:07-0500 Body mass index (BMI) [Ratio] 34.2 kg/m2 Dr. Susan Pompa MD Work Phone: [facility] 10-06-2024 09:07-0500 Body weight [address] Susan Pompa MD Work Phone: [facility] Encounters Encounter Date Encounter Type Care Provider Facility Start: 08-28-2025 ambulatory Susan Pompa Facility: [facility] Start: 08-27-2025 Encounter for other preprocedural examination [facility] Start: 07-23-2025 End: 07-23-[address] Susan Pompa MD Work Phone: -[facility] Start: 07-23-2025 End: 07-23-[address] Leanne Red DO -[facility] Start: 07-23-2025 End: 07-23-[address] Leanne Red DO -[facility] Work Phone: Start: 07-23-2025 End: 07-23-[address] Susan Pompa MD Work Phone: [facility] Start: 07-23-2025 End: 07-23-2025 ambulatory Susan Pompa Facility:[facility] Start: 06-25-2025 End: 06-25-[address] Susan Pompa MD Work Phone: -Ultrasound [facility] Start: 06-25-2025 End: 06-25-[address] Leanne Red DO [facility] Work Phone: Start: 06-25-2025 End: 06-25-2025 ambulatory [facility] Facility:[facility] Start: 05-25-2025 End: 05-25-[address] Susan Pompa MD Work Phone: -Laboratory Start: 05-25-2025 End: 05-25-[address] Leanne Red DO Laboratory Work Phone: Start: 05-25-2025 End: 05-25-[address] Leanne Red DO -[facility] Work Phone: Start: 05-25-2025 End: 05-25-[address] Susan Pompa MD Work Phone: [facility] Start: 05-25-2025 End: 05-25-2025 ambulatory Susan Pompa Facility:[facility] Start: 05-22-2025 ambulatory Susan Pompa Facility: [facility] Start: 04-23-2025 End: 04-23-[address] Susan Pompa MD Work Phone: -Ultrasound [facility] Start: 04-23-2025 End: 04-23-2025 Patient encounter procedure Radha Taylor WHITE SPOOLER-C -Ultrasound [facility] Work Phone: Start: 04-23-2025 End: 04-23-2025 ambulatory Radhanathalie Taylor Facility:[facility] Start: 04-11-2025 End: 04-11-[address] Denys Carson MD -[facility] Work Phone: Start: 04-11-2025 End: 04-11-[address] Susan Pompa MD Work Phone: [facility] Work Phone: Start: 03-28-2025 Non-patient / Non-visit Dr. Jaylyn Carson MD -[facility] Start: 03-28-2025 End: 03-28-2025 Admission to same day surgery center Dr. Denys Carson MD -[facility] Start: 03-28-2025 End: 03-28-[address] Susan Pompa MD Work Phone: [facility] Work Phone: Start: 03-27-2025 End: 03-27-[address] Susan Pompa MD Work Phone: [facility] Work Phone: Start: 03-27-2025 End: 03-27-2025 Patient encounter procedure Radha Taylor WHITE SPOOLER-C -Laboratory [place] Work Phone: Start: 03-27-2025 End: 03-27-2025 ambulatory Radha Taylor Facility:[facility] Start: 03-02-2025 End: 03-02-[address] Denys Carson MD -[facility] Work Phone: Start: 03-02-2025 End: 03-02-[address] Susan Pompa MD Work Phone: [facility] Work Phone: Start: 02-12-2025 ambulatory Susan Pompa Facility: [facility] Start: 02-12-2025 Non-patient / Non-visit Dr. Jaylyn Carson MD -[facility] Start: 02-12-2025 End: 02-12-[address] Susan Pompa MD Work Phone: [facility] Work Phone: Start: 02-12-2025 End: 02-12-[address] Denys Carson MD -Breast Imaging - Biopsy/[facility] Work Phone: Start: 02-12-2025 End: 02-12-2025 ambulatory Susan Peña Facility:[facility] Start: 02-08-2025 End: 02-08-[address] Denys Carson MD -[facility] Work Phone: Start: 02-08-2025 End: 02-08-2025 ambulatory Susan Peña Facility:[facility] Start: 02-02-2025 End: 02-02-[address] Susan Pompa MD Work Phone: [facility] Work Phone: Start: 02-02-2025 End: 02-02-[address] Susan Pompa MD -Outpatient Breast Imaging Work Phone: Start: 02-02-2025 End: 02-02-2025 ambulatory Susan Pompa Facility:[facility] Start: 01-22-2025 End: 01-22-[address] Susan Pompa MD Work Phone: [facility] Work Phone: Start: 01-22-2025 End: 01-22-[address] Susan Pompa MD -Outpatient Breast Imaging Work Phone: Start: 01-22-2025 End: 01-22-2025 ambulatory Susan Pompa Facility:[facility] Start: 01-05-2025 ambulatory Susan Pompa Facility: [facility] Start: 01-04-2025 End: 01-04-[address] Susan Pompa MD Work Phone: [facility] Work Phone: Start: 01-04-2025 End: 01-04-[address] Susan Pompa MD -Laboratory, [facility] Start: 01-04-2025 End: 01-04-2025 ambulatory Susan Peña Facility:[facility] Start: 01-02-2025 End: 01-02-[address] Susan Pompa MD Work Phone: [facility] Work Phone: Start: 01-02-2025 End: 01-02-[address] Susan Pompa MD -Laboratory, Specimen Work Phone: Start: 01-02-2025 End: 01-02-2025 ambulatory Susan Pompa Facility:[facility] Start: 10-06-2024 Non-patient / Non-visit Dr. Jaylyn Carson MD -[facility] Start: 10-06-2024 End: 10-06-2024 Admission to same day surgery center Dr. Denys Carson MD -Endoscopy Work Phone: Start: 10-06-2024 End: 10-06-[facility] Start: 01-20-2024 End: 01-20-2024 ambulatory [facility] Work Phone: Start: 01-20-2024 End: 01-20-2024 Patient encounter procedure [facility]-Laboratory, [facility] Work Phone: Procedures Date Procedure Procedure Detail Performing Clinician Start: 07-23-[address] Val Pompa MD Work Phone: Start: 07-23-[address] Susan Pompa MD Work Phone: Start: 06-25-[address] Rene Pompa MD Work Phone: Start: 04-23-[address] Rene Pompa MD Work Phone: Start: 03-28-2025 Lumpectomy of left breast Dr. Susan Pompa MD Work Phone: Start: 03-28-[address] Norman Pompa MD Work Phone: Start: 03-28-[address] Bennie Pompa MD Work Phone: Start: 03-27-[address] Val Pompa MD Work Phone: Start: 02-12-[address] Norman Pompa MD Work Phone: Start: 02-02-[address] Susan Pompa MD Work Phone: Start: 01-22-2025 Screening mammography Macrina Pompa MD Work Phone: Start: 01-04-2025 Total iron binding capacity measurement Dr. Susan Pompa MD Work Phone: Start: 01-04-2025 End: 01-04-2025 Polymerase chain reaction analysis Dr. Susan Pompa MD Work Phone: Start: 01-02-2025 Polymerase chain lesli ction analysis Dr. Susan Pompa MD Work Phone: Plan of Treatment Date Care Activity Detail Author Start: 07-23-2025 [facility] Start: 07-23-2025 Bacteria identified in Urine by Culture Urine Culture [facility] Start: 03-28-2025 Anes integ extremities ant trunk & perineum nos ANESTH SKIN EXT/PER/ATRUNK [facility] Start: 03-28-2025 Exc breast les preop plmt rad marker open 1 les EXCISION BREAST LESION [facility] Start: 03-28-2025 Patient discharge [facility] Start: 03-28-2025 Breast procedure Needle Loc 1st Lesion [facility] Start: 03-28-2025 Needle Loc 1st Lesion Needle Loc 1st Lesion [facility] Start: 03-27-2025 [facility] Start: 03-27-2025 Bacteria identified in Urine by Culture Urine Culture [facility] Start: 02-12-2025 Bx breast w/device 1st lesion stereotactic guid BX BREAST 1ST LESION STRTCTC [facility] Start: 10-06-2024 Colonoscopy flx dx w/collj spec when pfrmd DIAGNOSTIC COLONOSCOPY [facility] Start: 10-06-2024 Esophagogastroduodenoscopy transoral diagnostic EGD DIAGNOSTIC BRUSH WASH [facility] Start: 10-06-2024 Patient discharge [facility] Start: 01-20-2024 [facility] Cancer Ag 125 [Units /volume] in Serum or Plasma [facility] Carcinoembryonic Ag [Mass/volume] in Serum or Plasma [facility] Path report.final Dx Spec [facility] Patient Education RAD RN Image-G uided Breast Biopsy Discharge Instructions [facility] Work Phone: Patient referral [facility] Work Phone: Urine culture [facility] Urine culture [facility] Payers Date Payer Category Payer Self-pay 2024 Unknown [id number] Unknown [id number] Unknown [id number] 2.16.8 [id number] Unknown [id number] 2.16.8 40.1.130728.3.579.2.462 Unknown [id number] 2.16.8 40.1.712457.3.579.2.462 Unknown [id number] 2.16.8 40.1.945449.3.579.2.462 Unknown [id number] 2.16.8 40.1.746787.3.579.2.462 Unknown [id number] 2.16.8 40.1.734450.3.579.2.462 Unknown [id number] 2.16.8 40.1.053551.3.579.2.462 Unknown [id number] 2.16.8 40.1.490725.3.579.2.462 Unknown [id number] 2.16.8 40.1.670703.3.579.2.462 Unknown [id number] 2.16.8 40.1.525566.3.579.2.462 Unknown [id number] 2.16.8 40.1.221953.3.579.2.462 Unknown [id number] 2.16.8 40.1.066374.3.579.2.462 Unknown [id number] 2.16.8 40.1.158733.3.579.2.462 Unknown [id number] 2.16.8 40.1.830801.3.579.2.462 Unknown [id number] 2.16.8 40.1.036313.3.579.2.462 Unknown [id number] 2.16.8 40.1.431850.3.579.2.462 Unknown [id number] 2.16.8 40.1.333820.3.579.2.462 Unknown [id number] 2.16.8 40.1.915241.3.579.2.462 Unknown [id number] 2.16.8 40.1.481084.3.579.2.462 Unknown [id number] 2.16.8 40.1.376191.3.579.2.462 Unknown [id number] 2.16.8 40.1.050640.3.579.2.462 Unknown [id number] 2.16.8 40.1.817468.3.579.2.462 Unknown [id number] 2.16.8 40.1.631707.3.579.2.462 Social History Date Type Detail Facility Tobacco smoking status OHIS Unknown if ever smoked [facility] Work Phone: Start: 1970 Sex Assigned At Female [facility] Start: 10-04-2024 End: 05-25-2025 Tobacco smoking status NHIS Never smoked tobacco (finding) [facility] Start: 01-11-2025 End: 02-06-2025 Sex Female (finding) [facility] Not [facility] NEGATED: Highlighted row Not [facility] Goals Date Patient Goal Desired Activity /State Mental Status Date Assessment Result Facility 03-28-2025 Cognitive function Voice/Name [facility] Work Phone: 10-06-2024 Cognitive function Voice/Name;Touch/Shaki ng [facility] Work Phone: Clinical Notes 10-06-2024 to 07-23-2025 Note Date & Type Note Facility 07-23-2025 Progress note [facility] 06-26-2025 Radiology Diagnostic study note [facility] Imaging Services [address], [place] [address] Pelvic w/ Transvaginal MR#: [id number] Acct: [id number] Name: KATHERINE GORDON Rep #: [id number] : 1970 F 54 From: Juan Ramon Cortez MD PCP: Dr. Susan Pompa MD Status: REG CLI Study:Pelvic w/ Transvaginal Date of Exam: 06/25/25 Exam# [id number] Ordering Dr: Leanne Bragg DO PROCEDURE: PELVIC W/ TRANSVAGINAL REASON FOR EXAM: OV CYST Patient is postmenopausal. TECHNIQUE: Procedure Code: [id number] Modality: US Procedure: PELVIC W/ TRANSVAGINAL COMPARISON: Prior study dated April 23, 2025. FINDINGS: Measurements: Uterus: 8.1 cm x 4.2 cm x 2.8 cm with a volume of 50.4 mL Endometrial Thickness: 6 mm. This is thickened for the postmenopausal state. Right Ovary: 9.6 cm x 8 cm x 6 cm with a volume of 254.14 mL. Left Ovary: 2.1 cm x 2.2 cm x 1.8 cm with a volume of 37.87 mL. TRANSABDOMINAL: Uterus: Normal size, myometrial echotexture, and contour. Nabothian cyst. Endometrium: The endometrium is thickened measuring 6 mm. It is hyperechoic. Right ovary: There is a 7.7 cm x 7.2 cm 5.4 cm septated cyst in the right ovary. This is essentially unchanged. Left ovary: Normal size and echotexture. Other: No large pelvic mass identified. Transvaginal sonography was performed to better visualize the endometrium. TRANSVAGINAL: Uterus: Anteverted. Normal contour and myometrial echotexture. Endometrium: Endometrial thickening at 6 mm for the postmenopausal state. Right ovary: Stable septated cyst in the right ovary. Left ovary: Normal size and echotexture. Other adnexal findings: None. Cul-de-sac: No free intraperitoneal fluid identified. Tenderness: No tenderness US/Pelvic w/ Transvaginal IMPRESSION: Stable septated cyst in the right ovary. Endometrial thickening at 6 mm. Reading Location: [id number] CC: Dr. Susan Pompa MD; Dr. Leanne Red, DO ~ Insurance Rater: Signed [facility] 05-25-2025 Evaluation note Diagnosis Onset Date Resolution Atypical ductal hyperplasia of left breast acute May 25, 2025 11:21am Ovarian cyst acute May 25, 2025 11:21am Prolapse of female pelvic organs acute May 25, 2025 11:21am Atypical ductal hyperplasia of left breast acute July 23 10:13am Ovarian cyst acute July 23, 2025 10:13am Prolapse of female pelvic organs acute July 23 10:13am [facility] Work Phone: 1(590) 799-664307-08-2025 Radiology Diagnostic study note [facility] Imaging Services [address], [place] [address] Pelvic w/ Transvaginal MR#: [id number] Acct: [id number] Name: KATHERINE GORDON Rep #: [id number] : 1970 F 54 From: Juan Ramon Cortez MD PCP: Dr. Susan Pompa MD Status: REG CLI Study:Pelvic w/ Transvaginal Date of Exam: 04/23/25 Exam# [id number] Ordering Dr: Ra neena Taylor PROCEDURE: PELVIC W/ TRANSVAGINAL REASON FOR EXAM: RLQ PAIN TECHNIQUE: PELVIC W/ TRANSVAGINAL COMPARISON: None FINDINGS: The patient is postmenopausal. Measurements: Uterus: 9.3 cm x 4.5 cm x 2.6 cm with a volume of 55.86 mL Endometrial Thickness: 4 mm. Slightly thickened for the postmenopausal phase. Right Ovary: 9.1 cm x 8.3 cm x 5.5 cm with a volume of 313.26 mL. Left Ovary: 2 cm x 1.3 cm x 1.7 cm with a volume of mL. TRANSABDOMINAL: Uterus: Normal size, myometrial echotexture, and contour. Endometrium: Slightly thickened endometrium for postmenopausal state. Right ovary: 7.5 cm x 7.1 cm 5.3 cm septated cyst in the right ovary. Left ovary: Normal size and echotexture. Other: No large pelvic mass identified. Transvaginal sonography was performed to better visualize the endometrium. TRANSVAGINAL: Uterus: Anteverted. Endometrium: Mild thickening of the endometrium. Right ovary: 7.5 cm 7.1 cm by 5.3 cm cyst in the right ovary. Left ovary: Normal size and echotexture. Other adnexal findings: None. Cul-de-sac: No free intraperitoneal fluid identified. Tenderness: No tenderness US/Pelvic w/ Transvaginal IMPRESSION: 7.5 cm by 7.1 cm 5.3 cm septated cyst in the right ovary. Mild thickening of the endometrium. Reading Location[facility] CC: LUCIA Taylor; Dr. Susan Pompa MD ~ Insurance Rater: Signed [facility]06-25-2025 Evaluation note* Diagnosis Onset Date Resolution Status Admit Date Atypical ductal hyperplasia of left breast acute April 11, 2025 10:04am Atypical ductal hyperplasia of left breast acute May 25, 2025 11:21am Ovarian cyst acute May 25, 2025 11:21am Prolapse of female pelvic organs acute May 25, 2025 11:21am Atypical ductal hyperplasia of left breast acute July 23 10:13am Ovarian cyst acute July 23, 2025 10:13am Prolapse of female pelvic organs acute July 23 10:13am [facility] Work Phone: 1(379) 167-937206-11-2025 Consult note Author Yudith Wheat [facility] Note Date/Time March 28, 2025 12:3 3pm [facility] Medical Records Department [address] [place] [address] Anesthesia Postop Eval I 03/28/25 1231 MR#: [id number] Acct: [id number] Name: KATHERINE GORDON Rep #: [id number] : 1970 54 From: Yudith Wheat CRNA PCP: Dr. Susan Pompa MD Status:REG [facility] Y Race: C Location: [place] [address] Anesthesia: Postop Eval I Current Vital Signs Temperature: 97.2 F Pulse Rate: 83 Blood Pressure: 149/101 Respiratory Rate: 16 Pulse Ox: 94 Oxygen Delivery Method: Room Air Assessment Airway patent: Yes Spontaneous unlabored respirations: Yes Mental status: Awake and Calm nausea: No Vomiting: No Anesthesia Complication: No Fluid Hydration Crystalloid volume administer (ml): 800 Total IV fluid infused: 800 Progress Note Anesthesia document: Postop Eval 1 completed: Yes 03/28/25 1233 <Electronically signed by Yudith bhakta CASH APPLICATION CLERK> Date _ Yudith Wheat CASH APPLICATION CLERK Cosigner Signature: Date CC: ~ Signed [facility] Work Phone: 1(744) 111-123106-11-2025 Consult note [facility] Medical Records Department [address] [place] [address] Anesthesia Postop Eval II 03/28/25 1354 MR#: [id number] Acct: [id number] Name: KATHERINE GORDON Rep #: [id number] : 1970 54 From: Alpesh Dunbar MD PCP: Dr. Susan Pompa MD Status:REG SD[facility] Y Race: C Location: [place] [address] Anesthesia Postop Eval I Sum Postop Eval Completion status Anesthesia document: Postop Eval 1 completed: Yes Anesthesia Postop Eval I Summary Anesthesia Postop Eval I Summary: Anesthesia Postop Eval I: Assessment Summary Airway patent Yes 03/28/25 12:33 CASH APPLICATION [email or web address].JDEF Spontaneous unlabored Yes 03/28/25 12:33 CASH APPLICATION CLERK.JDEF respirations Mental status Awake,Calm 03/28/25 12:33 CASH APPLICATION CLERK.JDEF nausea No 03/28/25 12:33 CASH APPLICATION CLERK.JDEF Vomiting No 03/28/25 12:33 CASH APPLICATION CLERK.JDEF Anesthesia Postop Eval I: Fluid Summary Crystalloid volume administer 800 03/28/25 12:33 CASH APPLICATION CLERK.JDEF (ml) Colloids volume administered ( ml) Blood Product volume administered (ml) Total IV fluid infused 800 03/28/25 12:33 CASH APPLICATION CLERK.JDEF Anesthesia Postop Eval I: Summary Notes Anesthesia Complication No 03/28/25 12:33 CASH APPLICATION CLERK.JDEF Anesthesia Complication Comment: Post-operative progress note Anesthesia: Postop Eval II Evaluation Mental status: Awake Pain Level: 0 nausea: No Vomiting: No 03/28/25 1355 > Date _ Alpesh Dunbar MD Cosigner Signature: Date CC: ~ Signed [facility]06-11-2025 Discharge summary [facility] Medical Records Department [address] [facility] [address] [place] [address] Instructions for Home/Discharge Instructions 03/28/25 1310 MR#: [id number] Acct: [id number] Name: KATHERINE GORDON Rep #: [id number] : 1970 54 From: Denys don MD PCP: Dr. Susan Pompa MD Status:REG [facility] Discharge Instructions Diet Discharge Diet: No restrictions Activity Discharge Activity: May Not Drive (for 2-3 days or while taking narcotic pain medications.) and MayShower May shower in (days): 1 Lifting Restrictions: 15 lbs for 1 week Additional Activity Instructions:: Alternate ibuprofen and Tylenol for pain control, oxycodone for breakthrough pain Dressing / Incision Call your doctor if your incision/area has: Continuous Slow Oozing, Sudden Increased Bleeding, Increased Pain/ Swelling, Increased Redness, Foul Smelling Discharge and Swelling at the incision site Call your doctor if you observe: Fever of 101 or Higher Suture Line Care: Avoid Pulling/Pushing and Avoid Pinching/Bending Cleanse incision/area with: Soap & Water Additional Dressing/Incision Instructions:: Remove bulky dressing tomorrow. Follow Up Care Please Follow Up With: Denys Carson MD When: Please call to schedule 2 week follow up appointment. [phone] Test Results: Test results from this visit will be discussed in further detail at your follow- up appointment, if applicable. Discharge Plan Admission Attending Provider: Denys Carson Primary Care Provider: Susan Pompa Instructions Print Language: Czech Discharge Orders/Prescriptions Prescriptions: New oxycodone 5 mg tablet 5 - 10 mg PO Q6H PRN (Reason: pain) 5 Days Qty: 14 0RF No Action bupropion HCl [Wellbutrin XL] 150 mg tablet extended release 24 hr 150 mg PO QAM magnesium 200 mg tablet 200 mg PO QDAY loratadine [Claritin] 10 mg tablet 10 mg PO DAILY PRN PRN (Reason: allergy symptoms) cyanocobalamin-liver extract Tablet 3 tab PO QWEEK cranberry 500 mg capsule 1,000 mg PO QDAY PRN (Reason: urinary tract irritation) Rx Instructions: administer with a meal Referrals / Follow Up: Susan Pompa MD [Primary Care Provider] - Disposition Disposition (needs filled in before D/C Order can be placed): Home, Self Care 03/28/25 1312Ahuey Carson MD CC: Dr. Susan Pompa MD ~ Signed [facility]06-11-2025 Procedure note [facility] Medical Records Department [address] [place] [address] Operative Report 03/28/25 1307 MR#: [id number] Acct: [id number] Name: KATHERINE GORDON Rep #: [id number] : 1970 54 From: Denys don MD PCP: Dr. Susan Pompa MD Status:REG [facility] Location: [place] [address] Operative Report (Standard) Operative Information Date of Procedure: 03/28/25 Pre-Operative Diagnosis: Left breast atypical ductal hyperplasia Post-Operative Diagnosis: Same Surgery/Procedure Performed: 1. Stereotactic wire localization of left breast lesion 2. Lumpectomy of left breast catalog library assistant: Yes Ultimate Hoops Trainer: Sarah Lee Tasks completed by presser first: Opening and Closing Type of Anesthesia: General/Regional RN Documented Start/Stop Times: Operation Date: 03/28/25 11:30 Case Time Into Pre-Op 03/28/25 10:13 Out of Pre-Op 03/28/25 11:36 Anesthesia Start 03/28/25 11:40 Into Room 03/28/25 11:40 Procedure Start 03/28/25 11:58 Procedure End 03/28/25 12:16 Anesthesia End 03/28/25 12:24 Out of Room 03/28/25 12:24 Into Recovery 03/28/25 12:27 Procedure Start Time: 11:58 Procedure Stop Time: 12:16 Select all DRAINS/GRAFTS/IMPLANTS that apply: None Estimated Blood Loss: 5 Specimen collected: Yes Description of specimen(s) removed: Left breast mass Description of surgery: Patient was brought to the stereotactic room and placed in the stereotactic table. Images were obtained of the left breast and the clip was localized usingthe computer. Stereotactic images were obtained. Next the skin was prepped andinjected with local anesthetic. The wire was placed into the mass under stereotactic guidance. Next mammogram was obtained which showed the wire in good position. Patient was then brought to the operating room and general anesthesia was induced. The left breast was prepped and draped in usual sterile fashion. A curvilinear incision was marked outside the nipple and injected with local anesthetic. Incision was then made and deepened to the subcutaneous fat. The wire was brought into the incision. Flaps were raised on either side using electrocautery. The mass was grasped and the area surrounding it was dissected free using electrocautery. The area was marked and sent for x-ray which confirmed the clip and microcalcifications were removed. Next the cavity was irrigated and suctioned dry and hemostasis was obtained using electrocautery. Incision was closed with interrupted 3-0 Vicryl sutures and a running 4-0 Monocryl suture. Dermabond was applied. Fluffs and a surgical bra were applied. Patient was taken to PACU in stable condition. Surgical Findings: Clip and wire intact on specimen mammogram Complications Complications: No Admit VTE Documentation VTE Mechan Device Prophylaxis: SCD's 03/28/25 1310 Cosigner Signature (if applicable): CC: Dr. Denys Carson MD; Dr. Susan Pompa MD~ Signed [facility]06-11-2025 History and physical note Author Denys Carson [facility] Note Date/Time March 28, 2025 11:0 0am [facility] Medical Records Department [address] [place] [address] History & Physical Exam 03/28/25 1100 MR#: [id number] Acct: [id number] Name: KATHERINE GORDON Rep #: [id number] : 1970 54 From: Denys don MD PCP: Dr. Susan Pompa MD Status:[facility] Location: [place] [address] History and Physical Date of Admission: 03/28/25 Intake Vital Signs 02/08/2513:53 03/02/2510:23 Height 5 ft 7 in 5 ft 7 in Weight: 195 lb 2 oz 196 lb BMI 30.5 30.7 BP 116/90 H 139/91 H Blood Pressure Location Rt brachial Rt brachial Position Sitting Sitting Respiration 17 17 Pulse 75 80 Pulse Source Monitor Monitor Temp 97.5 F L 97.6 F L Temp Source Temporal Temporal Pulse Oximetry (%) 96 96 Oxygen Delivery Method room air room air Intake Visit Reasons: DISCUSS BREAST SURGERY Chief Complaint: discuss breast surgery Is patient in pain?: No Allergies Penicillins (PCN) Allergy (Severe, Verified 03/02/25 10:24) SwellingSulfa (Sulfonamide Antibiotics) Allergy (Intermediate, Verified 03/02/2510:24) Other Medications ?Medication ?Instructions ?Recorded ?Confirmed ?Type ascorbic acid (vitamin C) 500 mg 1,000 mg PO DAILY 08/16/24 03/02/25 Hist ory capsule bupropion HCl 150 mg 24 hr tablet, 150 mg PO QAM 08/16/24 03/02/25 History extended release (Wellbutrin XL) ferrous sulfate 325 mg (65 mg 325 mg PO QDAY 08/16/24 03/02/25 History iron) tablet (Feosol) loratadine 10 mg tablet (Claritin) 10 mg PO DAILY PRN PRN allergy 08/16/24 03/02/25 History symptoms magnesium 200 mg tablet 200 mg PO QDAY 08/16/24 03/02/25 History PFSH Medical History Microcalcification of left breast on mammogram Post-menopausal Wears contact lenses Depression Anxiety Anemia Back pain Injury of head and neck Gastric reflux Non-smoker Shortness of breath on exertion History of edema Arthritis Fatigue Surgical History History of facial surgery Hx of wisdom tooth extraction History of dental surgery H/O foot surgery History of cholecystectomy Family History Father Heart diseaseGrandmother Heart disease Social History Smoking Status: Never smoker alcohol intake: never substance use type: does not use HPI HPI HPI: Patient is a 54-year-old female here for atypia during her stereotactic biopsy. She notes that she did get a hematoma after the biopsy but it is shrinking. ROS General General: Yes weight change and fatigue; No appetite, colon cancer, breast cancer or weakness HEENT HEENT: Yes eye surgery; No difficulty swallowing, eye injury, swollen glands or hoarseness Endo Endocrine: No thyroid disease, diabetes mellitus, thyroid cancer, Hair loss, heat intolerance or cold intolerance Skin Skin: No rash or changing moles Breast Breast: Yes abnormal mammogram; No left breast lump, right breast lump, nipple discharge, breast pain, abnormal US or breast enlargement Musc Musculoskeletal: Yes arthritis; No back problems, rheumatoid arthritis, gout or joint pain Cardio Cardiovascular: No murmur, pacemaker, heart disease, atrial fibrillation, high blood pressure, heart attack, heart stent, palpitations, shortness of breath with exertion or chest pain Psych Psychiatric: No depression, anxiety or hearing voices Resp Respiratory: No shortness of breath, Yes sleep apnea, No cough, No COPD, No asthma, No emphysema and No wheezing Gastro Gastrointestinal: No abdominal pain, No nausea or vomiting, No diarrhea, No constipation, Yes blood in stool, Yes acid reflux, Yes hemorrhoids, No ulcers, No gallbladder problem and Yes black,tarry stools Arturo Hematologic: No blood thinners, No blood disorders, No bleeding, No anemia and No blood clots Neuro Neurologic: No system reviewed and no additional complaints, except as documented, No as per HPI, No abnormal gait, No abnormal hearing, No abnormal movements, No abnormal speech, No behavioral changes, No burning sensations, No confusion, No convulsions, No disequilibrium, No dizziness, No localized weakness, No frequent falls, No headache(s), No lack of coordination, No loss ofvision, No memory loss, Yes numbness, No other visual disturbances, No radicularpain, No restless legs, No sensory deficit, No syncope, Yes tingling, No tremor(s), No weakness and No other Exam Const General: cooperative Orientation: alert and oriented x3 HENMT Head: normal to inspection Neck Neck: normal visual inspection and full ROM Chest Chest palpation & inspection: normal inspection of the chest Resp Effort & Inspection: normal respiratory effort Auscultation: clear to auscultation bilaterally Cardio Rate: regular rate Rhythm: regular rhythm GI Inspection: non-distended Palpation: soft and nontender Skin General: no rashes or lesions noted Neuro General: patient alert and patient oriented x3 Extrem General: full ROM Psych Appearance: grossly normal Mental Status: mental status grossly normal Assessment and Plan Assessment and Plan (1) Atypical ductal hyperplasia of left breast: Status: Acute Plan: The patient had stereotactic biopsy of microcalcifications. This came back withmicrocalcifications along with atypical ductal hyperplasia. Given the fact thatthere was atypia I recommended excisional biopsy with stereotactic guided wire localization. I discussed the procedure thoroughly with her. I also discussed possibility of having to bring her back for margins and lymph node if this comesback malignant. I discussed the risks including but not limited to bleeding, infection, need for further surgery. Patient understands all the risks and is willing to proceed. Denys Carson MD Pager: [facility] [address] [facility], [address] [place] [address] Office: I have examined the patient and the H&P has been reviewed. There are no clinicalchanges since date of exam. 03/28/25 1100 <Electronically signed by Denys Carson MD> Cosigner Signature (if applicable): CC: Dr. Denys Carson MD; Dr. Susan Pompa MD~ Signed [facility] Work Phone: 1(217) 309-733606-11-2025 Consult note [facility] Medical Records Department [address] [place], [place] [id number] Anesthesia Postop Eval I 03/28/25 1231 MR#: [id number] Acct: [id number] Name: KATHERINE GORDON Rep #: [id number] : 1970 54 From: Yudith Wheat CRNA PCP: Dr. Susan Pompa MD Status:REG SDC Y Race: C Location: [place] [address] Anesthesia: Postop Eval I Current Vital Signs Temperature: 97.2 F Pulse Rate: 83 Blood Pressure: 149/101 Respiratory Rate: 16 Pulse Ox: 94 Oxygen Delivery Method: Room Air Assessment Airway patent: Yes Spontaneous unlabored respirations: Yes Mental status: Awake and Calm nausea: No Vomiting: No Anesthesia Complication: No Fluid Hydration Crystalloid volume administer (ml): 800 Total IV fluid infused: 800 Progress Note Anesthesia document: Postop Eval 1 completed: Yes 03/28/[address] CASH APPLICATION CLERK> Date _ Yudith Wheat CASH APPLICATION CLERK Cosigner Signature: Date CC: ~ Signed [facility]06-11-2025 Consult note Author Alpesh Dunbar [facility] Note Date/Time March 28, 2025 10:1 6am [facility] Medical Records Department [address] [place] [address] Pre-Anesthesia Evaluation 03/28/25 1016 MR#: [id number] Acct: [id number] Name: KATHERINE GORDON Rep #: [id number] : 1970 54 From: Alpesh Dunbar MD PCP: Dr. Susan Pompa MD Status:REG SDC Y Race: C Location: [place] [address] ASA Classification* ASA Classification ASA Classification: 2 Assessment & Plan Anesthesia* Anesthesia Assessment Anesthesia Assessment: Discussed sedation and/or anesthesia options, risks, benefits, and alternatives with patient/parents/legal guardian/POA. Questions invited. The patient/parents/legal guardian/POA seems to understand and agrees to proceedwith anesthesia plan. Reviewed the physical assessment, medical history, allergy history and patient home medications list prior to surgery/procedure/anesthetic and documented any changes. Performed airway and anesthesia risk assessments. Anesthesia Type Anesthesia Type: General Anesthesia Focused Assessment* Airway Assessment Mouth opens: >3 cm Mallampati Score: II Labs Anesthesia Preop lab: CBC WBC 9.2 K/mm3 (4.4-11.0) 01/04/25 16:19 01/04/25 RBC 5.08 M/mm3 (4.2-5.4) 01/04/25 16:19 01/04/25 Hgb 13.2 g/dL (12.0-15.0) 01/04/25 16:19 01/04/25 Hct 41.1 % (37-47) 01/04/25 16:19 01/04/25 Plt Count 322 K/mm3 (150-450) 01/04/25 16:19 01/04/25 CHEMISTRY Potassium 4.0 mmol/L (3.5-5.1) 07/18/24 10:42 07/18/24 Sodium 140 mmol/L (136-145) 07/18/24 10:42 07/18/24 BUN 10 mg/dL (7-18) 07/18/24 10:42 07/18/24 Creatinine 0.75 mg/dL (0.55-1.02) 07/18/24 10:42 07/18/24 Glucose 95 mg/dL (74-106) 07/18/24 10:42 07/18/24 TSH 0.594 uIU/mL (0.358-3.740) 07/18/24 10:42 11/10 COAG Pre-Assessment Diagnosis/Proposed Procedure Planned Operative Procedure(s): (L) Breast, Lumpectomy, NL left stereo wire localization lumpectomy Anesthesia History Anesthesia History - moshgiach: Anesthesia History - m[place]gi[place] Hx Hospitalization No 03/14/25 15:04 Any Problems With Anesthesia No 03/14/25 15:04 Cholinesterase deficiency No 03/14/25 15:04 You/Your Family Experience No 03/14/25 15:04 fever (hyperthermia) with Relationship Recent Exposure to Contagious No 10/06/24 09:07 Disease Does patient have nerve No 03/14/25 15:04 stimulator Patient instructed to have device shut off --Does patient have Pacemaker or ICD? When Was Last Pacemaker Check QUESTION #4 FULL TEXT: You/Your Family Experience fever (hyperthermia) with Anesthesia Last Oral Intake Last Oral intake: Last Oral Intake NPO since Meds taken in AM with sips of water? Meds patient instructed to take am of surgery PONV PONV - moshgiach: PONV - m[place]gi[place] Female Yes 03/14/25 15:04 HX of Motion Sickness No 03/14/25 15:04 HX of N/V After Surgery No 03/14/25 15:04 Non-Smoker Yes 03/14/25 15:04 Duration of Surgery greater No 03/14/25 15:04 than 60 minutes Number of Risk Factors 2 03/14/25 15:04 PONV Score Moderate Risk 03/14/25 15:04 Height & Weight Height & Weight: Anesthesia: Height & Weight Height 5 ft 7 in 03/02/25 10:23 Respiratory Assessment Respiratory Assessment - moshgi[place]: Respiratory Tract Infection Hx - moshgi[place] Hx Respiratory Tract Infection No 03/14/25 15:04 STOP Sleep Apnea STOP Sleep Apnea - m[place]gi[place]: STOP Sleep Apnea - m[place] Hx Hypertension No 03/14/25 15:04 Hx Sleep Apnea No 03/14/25 15:04 CPAP BIPAP Do you snore loudly (louder No 03/14/25 15:04 than talking or can be heard Do you often feel tired/ No 03/14/25 15:04 fatigued/ sleepy during daytime? Has anyone observed you stop No 03/14/25 15:04 breathing during sleep? STOP Results Negative 03/14/25 15:04 QUESTION #5 FULL TEXT : Do you snore loudly (louder than talking or can be heard through closed doors)? 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 Specify any problems Hx of Preganancy in last 3 No 03/14/25 15:04 Months Nurse Filling Out Transfusion VCHRISTIN 03/14/25 15:04 & Questions: Date: 03/14/25 03/14/25 15:04 Time: 15:05 03/14/25 15:04 Patient unable to answer at this time (ie. confused, unrespo /Reproduction History /Reproductive History - moshgi[place]: /Reproductive Hx- m[place] Hx Now No 03/14/25 15:04 Gestational Age (in weeks): EDC: Hx Hx Para Hx Section SAB No 03/14/25 15:04 Active Medications Active Medications: Current Medications Generic Name Dose Route Start Last Admin Trade Name Freq PRN Reason Stop Dose Admin Clindamycin Phosphate 900 mg in 50 mls @ 75 mls/hr 03/28/25 11:30 Cleocin IV 03/28/25 12:09 INTRAOP ONE Lactated Ringer's 1,000 mls @ 15 mls/hr 03/28/25 10:15 IV .Q48H ANAY PFSH Medical History Microcalcification of left breast on mammogram Post-menopausal Wears contact lenses Depression Anxiety Anemia Back pain Injury of head and neck Gastric reflux Non-smoker Shortness of breath on exertion History of edema Arthritis Fatigue Home Medications ?Medication ?Instructions ?Recorded ?Last Taken ?Type bupropion HCl 150 mg 24 hr tablet, 150 mg PO QAM 08/16 Unknown History extended release (Wellbutrin XL) loratadine 10 mg tablet (Claritin) 10 mg PO DAILY PRN PRN allergy 08/16/24 Unknown History symptoms magnesium 200 mg tablet 200 mg PO QDAY 08/16/2409/17 History cyanocobalamin-liver extract tablet 3 tab PO QWEEK Unknown History Allergy/AdvReac Type Severity Reaction Status Date / Time Penicillins (PCN) Allergy Severe Swelling Verified 03/14/25 14:59 Sulfa (Sulfonamide Allergy Intermediate Other Verified 03/14/25 14:59 Antibiotics) Family History Father Heart disease Grandmother Heart disease Surgical History Hx of colonoscopy History of facial surgery Hx of wisdom tooth extraction History of dental surgery H/O foot surgery History of cholecystectomy Social History Smoking Status: Never smoker alcohol intake: never substance use type: does not use Review of Systems (Anesthesia) ROS Narrative System reviewed and no additional complaints, except as documented. 03/28/25 1016 <Electronically signed by Alpesh Dunbar MD > Date _ Alpesh Dunbar MD Cosigner Signature: Date CC: ~ Signed [facility] Work Phone: 1(994) 271-512206-11-2025 History and physical note [facility] Medical Records Department [address] [place] [address] History & Physical Exam 03/28/25 1100 MR#: [id number] Acct: [id number] Name: KATHERINE GORDON Rep #: [id number] : 1970 54 From: Denys don MD PCP: Dr. Susan Pompa MD Status:[place] [facility] Location: [place] [address] History and Physical Date of Admission: 03/28/25 Intake Vital Signs 02/08/2513:53 03/02/2510:23 Height 5 ft 7 in 5 ft 7 in Weight: 195 lb 2 oz 196 lb BMI 30.5 30.7 BP 116/90 H 139/91 H Blood Pressure Location Rt brachial Rt brachial Position Sitting Sitting Respiration 17 17 Pulse 75 80 Pulse Source Monitor Monitor Temp 97.5 F L 97.6 F L Temp Source Temporal Temporal Pulse Oximetry (%) 96 96 Oxygen Delivery Method room air room air Intake Visit Reasons: DISCUSS BREAST SURGERY Chief Complaint: discuss breast surgery Is patient in pain?: No Allergies Penicillins (PCN) Allergy (Severe, Verified 03/02/25 10:24) SwellingSulfa (Sulfonamide Antibiotics) Allergy (Intermediate, Verified 03/02/2510:24) Other Medications ?Medication ?Instructions ?Recorded ?Confirmed ?Type ascorbic acid (vitamin C) 500 mg 1,000 mg PO DAILY 08/16/24 03/02/25 Hist ory capsule bupropion HCl 150 mg 24 hr tablet, 150 mg PO QAM 08/16/24 03/02/25 History extended release (Wellbutrin XL) ferrous sulfate 325 mg (65 mg 325 mg PO QDAY 08/16/24 03/02/25 History iron) tablet (Feosol) loratadine 10 mg tablet (Claritin) 10 mg PO DAILY PRN PRN allergy 08/16/24 03/02/25 History symptoms magnesium 200 mg tablet 200 mg PO QDAY 08/16/24 03/02/25 History PFSH Medical History Microcalcification of left breast on mammogram Post-menopausal Wears contact lenses Depression Anxiety Anemia Back pain Injury of head and neck Gastric reflux Non-smoker Shortness of breath on exertion History of edema Arthritis Fatigue Surgical History History of facial surgery Hx of wisdom tooth extraction History of dental surgery H/O foot surgery History of cholecystectomy Family History Father Heart diseaseGrandmother Heart disease Social History Smoking Status: Never smoker alcohol intake: never substance use type: does not use HPI HPI HPI: Patient is a 54-year-old female here for atypia during her stereotactic biopsy. She notes that she did get a hematoma after the biopsy but it is shrinking. ROS General General: Yes weight change and fatigue; No appetite, colon cancer, breast cancer or weakness HEENT HEENT: Yes eye surgery; No difficulty swallowing, eye injury, swollen glands or hoarseness Endo Endocrine: No thyroid disease, diabetes mellitus, thyroid cancer, Hair loss, heat intolerance or cold intolerance Skin Skin: No rash or changing moles Breast Breast: Yes abnormal mammogram; No left breast lump, right breast lump, nipple discharge, breast pain, abnormal US or breast enlargement Musc Musculoskeletal: Yes arthritis; No back problems, rheumatoid arthritis, gout or joint pain Cardio Cardiovascular: No murmur, pacemaker, heart disease, atrial fibrillation, high blood pressure, heart attack, heart stent, palpitations, shortness of breath with exertion or chest pain Psych Psychiatric: No depression, anxiety or hearing voices Resp Respiratory: No shortness of breath, Yes sleep apnea, No cough, No COPD, No asthma, No emphysema and No wheezing Gastro Gastrointestinal: No abdominal pain, No nausea or vomiting, No diarrhea, No constipation, Yes bloodin stool, Yes acid reflux, Yes hemorrhoids, No ulcers, No gallbladder problem and Yes black,tarry stools Arturo Hematologic: No blood thinners, No blood disorders, No bleeding, No anemia and No blood clots Neuro Neurologic: No system reviewed and no additional complaints, except as documented, No as per HPI, No abnormal gait, No abnormal hearing, No abnormal movements, No abnormal speech, No behavioral changes, No burning sensations, No confusion, No convulsions, No disequilibrium, No dizziness, No localized weakness, No frequent falls, No headache(s), No lack of coordination, No loss ofvision, No memoryloss, Yes numbness, No other visual disturbances, No radicularpain, No restless legs, No sensory deficit, No syncope, Yes tingling, No tremor(s), No weakness and No other Exam Const General: cooperative Orientation: alert and oriented x3 [facility] Head: normal to inspection Neck Neck: normal visual inspection and full ROM Chest Chest palpation & inspection: normal inspection of the chest Resp Effort & Inspection: normal respiratory effort Auscultation: clear to auscultation bilaterally Cardio Rate: regular rate Rhythm: regular rhythm GI Inspection: non-distended Palpation: soft and nontender Skin General: no rashes or lesions noted Neuro General: patient alert and patient oriented x3 Extrem General: full ROM Psych Appearance: grossly normal Mental Status: mental status grossly normal Assessment and Plan Assessment and Plan (1) Atypical ductal hyperplasia of left breast: Status: Acute Plan: The patient had stereotactic biopsy of microcalcifications. This came back withmicrocalcifications along with atypical ductal hyperplasia. Given the fact thatthere was atypia I recommended excisionalbiopsy with stereotactic guided wire localization. I discussed the procedure thoroughly with her. Ialso discussed possibility of having to bring her back for margins and lymph node if this comesbackmalignant. I discussed the risks including but not limited to bleeding, infection, need for furthersurgery. Patient understands all the risks and is willing to proceed. Denys Carson MD Pager: [facility] [address] [place] [address], [address] [place] [address] Office: I have examined the patient and the H&P has been reviewed. There are no clinicalchanges since date of exam. 03/28/25 1100 Cosigner Signature (if applicable): CC: Dr. Denys Carson MD; Dr. Susan oPmpa MD~ Signed [facility]06-11-2025 [facility] Medical Records Department [address] [place] [id number] History Physical Exam 03/28/25 1100 MR#: [id number] Acct: [id number] Name: KATHERINE GORDON Rep #: [id number] : 1970 54 From: Denys Carson MD PCP: Dr. Susan Pompa MD Status:REG [facility] Location: [place] [address] History and Physical Date of Admission: 03/28/25 Intake Vital Signs 02/08/2513:53 03/02/2510:23 Height 5 ft 7 in 5 ft 7 in Weight: 195 lb 2 oz 196 lb BMI 30.5 30.7 BP 116/90 H 139/91 H Blood Pressure Location Rt brachial Rt brachial Position Sitting Sitting Respiration 17 17 Pulse 75 80 Pulse Source Monitor Monitor Temp 97.5 F L 97.6 F L Temp Source Temporal Temporal Pulse Oximetry (%) 96 96 Oxygen Delivery Method room air room air Intake Visit Reasons: DISCUSS BREAST SURGERY Chief Complaint: discuss breast surgery Is patient in pain?: No Allergies Penicillins (PCN) Allergy (Severe, Verified 03/02/25 10:24) SwellingSulfa (Sulfonamide Antibiotics) Allergy (Intermediate, Verified 03/02/25 10:24) Other Medications ???Medication ???Instructions ???Recorded ???Confirmed ???Type ascorbic acid (vitamin C) 500 mg 1,000 mg PO DAILY 08/16/24 03/02/25 History capsule bupropion HCl 150 mg 24 hr tablet, 150 mg PO QAM 08/16/24 03/02/25 History extended release (Wellbutrin XL) ferrous sulfate 325 mg (65 mg 325 mg PO QDAY 08/16/24 03/02/25 History iron) tablet (Feosol) loratadine 10 mg tablet (Claritin) 10 mg PO DAILY PRN PRN allergy 08/16/24 03/02/25 H istory symptoms magnesium 200 mg tablet 200 mg PO QDAY 08/16/24 03/02/25 History PFSH Medical History Microcalcification of left breast on mammogram Post-menopausal Wears contact lenses Depression Anxiety Anemia Back pain Injury of head and neck Gastric reflux Non-smoker Shortness of breath on exertion History of edema Arthritis Fatigue Surgical History History of facial surgery Hx of wisdom tooth extraction History of dental surgery H/O foot surgery History of cholecystectomy Family History Father Heart diseaseGrandmother Heart disease Social History Smoking Status: Never smoker alcohol intake: never substance use type: does not use HPI HPI HPI: Patient is a 54-year-old female here for atypia during her stereotactic biopsy. She notes that she did get a hematoma after the biopsy but it is shrinking. ROS General General: Yes weight change and fatigue; No appetite, colon cancer, breast cancer or weakness HEENT HEENT: Yes eye surgery; No difficulty swallowing, eye injury, swollen glands or hoarseness Endo Endocrine: No thyroid disease, diabetes mellitus, thyroid cancer, Hair loss, heat intolerance or cold intolerance Skin Skin: No rash or changing moles Breast Breast: Yes abnormal mammogram; No left breast lump, right breast lump, nipple discharge, breast pain, abnormal US or breast enlargement Musc Musculoskeletal: Yes arthritis; No back problems, rheumatoid arthritis, gout or joint pain Cardio Cardiovascular: No murmur, pacemaker, heart disease, atrial fibrillation, high blood pressure, heart attack, heart stent, palpitations, shortness of breath with exertion or chest pain Psych Psychiatric: No depression, anxiety or hearing voices Resp Respiratory: No shortness of breath, Yes sleep apnea, No cough, No COPD, No asthma, No emphysema and No wheezing Gastro Gastrointestinal: No abdominal pain, No nausea or vomiting, No diarrhea, No constipation, Yes blood in stool, Yes acid reflux, Yes hemorrhoids, No ulcers, No gallbladder problem and Yes black,tarry stools Arturo Hematologic: No blood thinners, No blood disorders, No bleeding, No anemia and No blood clots Neuro Neurologic: No system reviewed and no additional complaints, except as documented, No as per HPI, No abnormal gait, No abnormal hearing, No abnormal movements, No abnormal speech, No behavioral changes, No burning sensations, No confusion, No convulsions, No disequilibrium, No dizziness, No localized weakness, No frequent falls, No headache(s), No lack of coordination, No loss of vision, No memory loss, Yes numbness, No other visual disturbances, No radicular pain, No restless legs, No sensory deficit, No syncope, Yes tingling, No tremor(s), No weakness and No other Exam Const General: cooperative Orientation: alert and oriented x3 HENMT Head: normal to inspection Neck Neck: normal visual inspection and full ROM Chest Chest palpation inspection: normal inspection of the chest Resp Effort Inspection: normal respi (more content not included)...[facility]06-11-2025 Consult note [facility] Medical Records Department [address] [place] [address] Pre-Anesthesia Evaluation 03/28/25 1016 MR#: [id number] Acct: [id number] Name: KATHERINE GORDON Rep #: [id number] : 1970 54 From: Alpesh Dunbar MD PCP: Dr. Susan Pompa MD Status:REG SDC Y Race: C Location: [place] [address] ASA Classification* ASA Classification ASA Classification: 2 Assessment & Plan Anesthesia* Anesthesia Assessment Anesthesia Assessment: Discussed sedation and/or anesthesia options, risks, benefits, and alternatives with patient/parents/legal guardian/POA. Questions invited. The patient/parents/legal guardian/POA seems to understand and agrees to proceedwith anesthesia plan. Reviewed the physical assessment, medical history, allergy history and patient home medications list prior to surgery/procedure/anesthetic and documented any changes. Performed airway and anesthesia risk assessments. Anesthesia Type Anesthesia Type: General Anesthesia Focused Assessment* Airway Assessment Mouth opens: >3 cm Mallampati Score: II Labs Anesthesia Preop lab: CBC WBC 9.2 K/mm3 (4.4-11.0) 01/04/25 16:19 01/04/25 RBC 5.08 M/mm3 (4.2-5.4) 01/04/25 16:19 01/04/25 Hgb 13.2 g/dL (12.0-15.0) 01/04/25 16:19 01/04/25 Hct 41.1 % (37-47) 01/04/25 16:19 01/04/25 Plt Count 322 K/mm3 (150-450) 01/04/25 16:19 01/04/25 CHEMISTRY Potassium 4.0 mmol/L (3.5-5.1) 07/18/24 10:42 07/18/24 Sodium 140 mmol/L (136-145) 07/18/24 10:42 07/18/24 BUN 10 mg/dL (7-18) 07/18/24 10:42 07/18/24 Creatinine 0.75 mg/dL (0.55-1.02) 07/18/24 10:42 07/18/24 Glucose 95 mg/dL (74-106) 07/18/24 10:42 07/18/24 TSH 0.594 uIU/mL (0.358-3.740) 07/18/24 10:42 11/10 COAG Pre-Assessment Diagnosis/Proposed Procedure Planned Operative Procedure(s): (L) Breast, Lumpectomy, NL left stereo wire localization lumpectomy Anesthesia History Anesthesia History - moshgiach: Anesthesia History - moshgi[place] Hx Hospitalization No 03/14/25 15:04 Any Problems With Anesthesia No 03/14/25 15:04 Cholinesterase deficiency No 03/14/25 15:04 You/Your Family Experience No 03/14/25 15:04 fever (hyperthermia) with Relationship Recent Exposure to Contagious No 10/06/24 09:07 Disease Does patient have nerve No 03/14/25 15:04 stimulator Patient instructed to have device shut off --Does patient have Pacemaker or ICD? When Was Last Pacemaker Check QUESTION #4 FULL TEXT: You/Your Family Experience fever (hyperthermia) with Anesthesia Last Oral Intake Last Oral intake: Last Oral Intake NPO since Meds taken in AM with sips of water? Meds patient instructed to take am of surgery PONV PONV - moshgiach: PONV - moshgi[place] Female Yes 03/14/25 15:04 HX of Motion Sickness No 03/14/25 15:04 HX of N/V After Surgery No 03/14/25 15:04 Non-Smoker Yes 03/14/25 15:04 Duration of Surgery greater No 03/14/25 15:04 than 60 minutes Number of Risk Factors 2 03/14/25 15:04 PONV Score Moderate Risk 03/14/25 15:04 Height & Weight Height & Weight: Anesthesia: Height & Weight Height 5 ft 7 in 03/02/25 10:23 Respiratory Assessment Respiratory Assessment - moshgiach: Respiratory Tract Infection Hx - moshgiach Hx Respiratory Tract Infection No 03/14/25 15:04 STOP Sleep Apnea STOP Sleep Apnea - moshgi[place]: STOP Sleep Apnea - moshgi[place] Hx Hypertension No 03/14/25 15:04 Hx Sleep Apnea No 03/14/25 15:04 CPAP BIPAP Do you snore loudly (louder No 03/14/25 15:04 than talking or can be heard Do you often feel tired/ No 03/14/25 15:04 fatigued/ sleepy during daytime? Has anyone observed you stop No 03/14/25 15:04 breathing during sleep? STOP Results Negative 03/14/25 15:04 QUESTION #5 FULL TEXT : Do you snore loudly (louder than talking or can be heard through closeddoors)? 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 Specify any problems Hx of Preganancy in last 3 No 03/14/25 15:04 Months Nurse Filling Out Transfusion VCHRISTIN 03/14/25 15:04 & Questions: Date: 03/14/25 03/14/25 15:04 Time: 15:05 03/14/25 15:04 Patient unable to answer at this time (ie. confused, unrespo /Reproduction History /Reproductive History - moshgi[place]: /Reproductive Hx- m[place]gi[place] Hx Now No 03/14/25 15:04 Gestational Age (in weeks): EDC: Hx Hx Para Hx Section SAB No 03/14/25 15:04 Active Medications Active Medications: Current Medications Generic Name Dose Route Start Last Admin Trade Name Freq PRN Reason Stop Dose Admin Clindamycin Phosphate 900 mg in 50 mls @ 75 mls/hr 03/28/25 11:30 Cleocin IV 03/28/25 12:09 INTRAOP ONE Lactated Ringer's 1,000 mls @ 15 mls/hr 03/28/25 10:15 IV .Q48H ANAY PFSH Medical History Microcalcification of left breast on mammogram Post-menopausal Wears contact lenses Depression Anxiety Anemia Back pain Injury of head and neck Gastric reflux Non-smoker Shortness of breath on exertion History of edema Arthritis Fatigue Home Medications ?Medication ?Instructions ?Recorded ?Last Taken ?Type bupropion HCl 150 mg 24 hr tablet, 150 mg PO QAM 08/16 Unknown History extended release (Wellbutrin XL) loratadine 10 mg tablet (Claritin) 10 mg PO DAILY PRN PRN allergy 08/16/24 Unknown History symptoms magnesium 200 mg tablet 200 mg PO QDAY 08/16/2409/17 History cyanocobalamin-liver extract tablet 3 tab PO QWEEK Unknown History Allergy/AdvReac Type Severity Reaction Status Date / Time Penicillins (PCN) Allergy Severe Swelling Verified 03/14/25 14:59 Sulfa (Sulfonamide Allergy Intermediate Other Verified 03/14/25 14:59 Antibiotics) Family History Father Heart disease Grandmother Heart disease Surgical History Hx of colonoscopy History of facial surgery Hx of wisdom tooth extraction History of dental surgery H/O foot surgery History of cholecystectomy Social History Smoking Status: Never smoker alcohol intake: never substance use type: does not use Review of Systems (Anesthesia) ROS Narrative System reviewed and no additional complaints, except as documented. 03/28/25 1016 > Date _ Alpesh Dunbar MD Cosigner Signature: Date CC: ~ Signed [facility]05-16-2025 Evaluation note* Diagnosis Onset Date Resolution Status Admit Date Atypical ductal hyperplasia of left breast acute March 02, 2025 1 0:17am Atypical ductal hyperplasia of left breast acute April 11, 2025 10:04am Atypical ductal hyperplasia of left breast acute May 25, 2025 11:21am Ovarian cyst acute May 25, 2025 11:21am Prolapse of female pelvic organs acute May 25, 2025 11:21am [facility] Work Phone: [phone] [facility] [address] [place] [address] OFFICE VISIT Date of Service: 03/02/25 MR#: [id number] Acct: [id number] Name: PAWEL WELDONKATHERINE TAPIA Rep #: [id number] : 1970 Provider: Dr. Pooja Carson MD Age/Sex: 54/F Location: [facility] Status: Signed Intake Vital Signs 02/08/25 13:53 03/02/25 10:23 Height 5 ft 7 in 5 ft 7 in Weight: 195 lb 2 oz 196 lb BMI 30.5 30.7 BP 116/90 H 139/91 H Blood Pressure Location Rt brachial Rt brachial Position Sitting Sitting Respiration 17 17 Pulse 75 80 Pulse Source Monitor Monitor Temp 97.5 F L 97.6 F L Temp Source Temporal Temporal Pulse Oximetry (%) 96 96 Oxygen Delivery Method room air room air Intake Visit Reasons: DISCUSS BREAST SURGERY Chief Complaint: discuss breast surgery Is patient in pain?: No Allergies Penicillins (PCN) Allergy (Severe, Verified 03/02/25 10:24) Swelling Sulfa (Sulfonamide Antibiotics) Allergy (Intermediate, Verified 03/02/25 10:24) Other Medications ?Medication ?Instructions ?Recorded ?Confirmed ?Type ascorbic acid (vitamin C) 500 mg 1,000 mg PO DAILY 03/02/25 History capsule bupropion HCl 150 mg 24 hr tablet, 150 mg PO QAM 08/1603/02/25 History extended release (Wellbutrin XL) ferrous sulfate 325 mg (65 mg 325 mg PO QDAY 08/16/24 03/02/25 History iron) tablet (Feosol) loratadine 10 mg tablet (Claritin) 10 mg PO DAILY PRN PRN allergy 08/16/24 03/02/25 History symptoms magnesium 200 mg tablet 200 mg PO QDAY 08/16/2402/15 History PFSH Medical History Microcalcification of left breast on mammogram Post-menopausal Wears contact lenses Depression Anxiety Anemia Back pain Injury of head and neck Gastric reflux Non-smoker Shortness of breath on exertion History of edema Arthritis Fatigue Surgical History History of facial surgery Hx of wisdom tooth extraction History of dental surgery H/O foot surgery History of cholecystectomy Family History Father Heart disease Grandmother Heart disease Social History Smoking Status: Never smoker alcohol intake: never substance use type: does not use HPI HPI HPI: Patient is a 54-year-old female here for atypia during her stereotactic biopsy. She notes that she did get a hematoma after the biopsy but it is shrinking. ROS General General: Yes weight change and fatigue; No appetite, colon cancer, breast cancer or weakness HEENT HEENT: Yes eye surgery; No difficulty swallowing, eye injury, swollen glands or hoarseness Endo Endocrine: No thyroid disease, diabetes mellitus, thyroid cancer, Hair loss, heat intolerance or cold intolerance Skin Skin: No rash or changing moles Breast Breast: Yes abnormal mammogram; No left breast lump, right breast lump, nipple discharge, breast pain, abnormal US or breast enlargement Musc Musculoskeletal: Yes arthritis; No back problems, rheumatoid arthritis, gout or joint pain Cardio Cardiovascular: No murmur, pacemaker, heart disease, atrial fibrillation, high blood pressure, heart attack, heart stent, palpitations, shortness of breath with exertion or chest pain Psych Psychiatric: No depression, anxiety or hearing voices Resp Respiratory: No shortness of breath, Yes sleep apnea, No cough, No COPD, No asthma, No emphysema and No wheezing Gastro Gastrointestinal: No abdominal pain, No nausea or vomiting, No diarrhea, No constipation, Yes bloodin stool, Yes acid reflux, Yes hemorrhoids, No ulcers, No gallbladder problem and Yes black,tarry stools Arturo Hematologic: No blood thinners, No blood disorders, No bleeding, No anemia and No blood clots Neuro Neurologic: No system reviewed and no additional complaints, except as documented, No as per HPI, No abnormal gait, No abnormal hearing, No abnormal movements, No abnormal speech, No behavioral changes, No burning sensations, No confusion, No convulsions, No disequilibrium, No dizziness, No localized weakness, No frequent falls, No headache(s), No lack of coordination, No loss ofvision, No memoryloss, Yes numbness, No other visual disturbances, No radicularpain, No restless legs, No sensory deficit, No syncope, Yes tingling, No tremor(s), No weakness and No other Exam Const General: cooperative Orientation: alert and oriented x3 HENAL Head: normal to inspection Neck Neck: normal visual inspection and full ROM Chest Chest palpation & inspection: normal inspection of the chest Resp Effort & Inspection: normal respiratory effort Auscultation: clear to auscultation bilaterally Cardio Rate: regular rate Rhythm: regular rhythm GI Inspection: non-distended Palpation: soft and nontender Skin General: no rashes or lesions noted Neuro General: patient alert and patient oriented x3 Extrem General: full ROM Psych Appearance: grossly normal Mental Status: mental status grossly normal Assessment and Plan Assessment and Plan (1) Atypical ductal hyperplasia of left breast: Status: Acute Plan: The patient had stereotactic biopsy of microcalcifications. This came back withmicrocalcifications along with atypical ductal hyperplasia. Given the fact thatthere was atypia I recommended excisionalbiopsy with stereotactic guided wire localization. I discussed the procedure thoroughly with her. Ialso discussed possibility of having to bring her back for margins and lymph node if this comesbackmalignant. I discussed the risks including but not limited to bleeding, infection, need for furthersurgery. Patient understands all the risks and is willing to proceed. Denys Carson MD Pager: [facility] [address] [place] [address], [address] [place] [address] Office: Coding Level of Care Code Off vis,est,level 3 Diagnoses Atypical ductal hyperplasia of left breast N60.92 03/02/25 1040 fredrick WISDOM> Date _ Denys Carson MD Cosigner Signature: Date (if applicable) CC: ~ [facility]05-16-2025 Progress note Author Denys Carson [facility] Services Note Date/Time March 02, 2025 10:40 am [facility] [address] [place] [address] OFFICE VISIT Date of Service: 03/02/25 MR#: [id number] Acct: [id number] Name: KATHERINE GORDON Rep #: [id number] : 1970 Provider: Dr. Pooja Carson MD Age/Sex: 54/F Location: [facility] Status: Signed Intake Vital Signs 02/08/25 13:53 03/02/25 10:23 Height 5 ft 7 in 5 ft 7 in Weight: 195 lb 2 oz 196 lb BMI 30.5 30.7 BP 116/90 H 139/91 H Blood Pressure Location Rt brachial Rt brachial Position Sitting Sitting Respiration 17 17 Pulse 75 80 Pulse Source Monitor Monitor Temp 97.5 F L 97.6 F L Temp Source Temporal Temporal Pulse Oximetry (%) 96 96 Oxygen Delivery Method room air room air Intake Visit Reasons: DISCUSS BREAST SURGERY Chief Complaint: discuss breast surgery Is patient in pain?: No Allergies Penicillins (PCN) Allergy (Severe, Verified 03/02/25 10:24) Swelling Sulfa (Sulfonamide Antibiotics) Allergy (Intermediate, Verified 03/02/25 10:24) Other Medications ?Medication ?Instructions ?Recorded ?Confirmed ?Type ascorbic acid (vitamin C) 500 mg 1,000 mg PO DAILY 10/ 30/24 05/16/25 History capsule bupropion HCl 150 mg 24 hr tablet, 150 mg PO QAM 08/1603/02/25 History extended release (Wellbutrin XL) ferrous sulfate 325 mg (65 mg 325 mg PO QDAY 08/16/24 03/02/25 History iron) tablet (Feosol) loratadine 10 mg tablet (Claritin) 10 mg PO DAILY PRN PRN allergy 08/16/24 03/02/25 History symptoms magnesium 200 mg tablet 200 mg PO QDAY 08/16/2402/15 History PFSH Medical History Microcalcification of left breast on mammogram Post-menopausal Wears contact lenses Depression Anxiety Anemia Back pain Injury of head and neck Gastric reflux Non-smoker Shortness of breath on exertion History of edema Arthritis Fatigue Surgical History History of facial surgery Hx of wisdom tooth extraction History of dental surgery H/O foot surgery History of cholecystectomy Family History Father Heart disease Grandmother Heart disease Social History Smoking Status: Never smoker alcohol intake: never substance use type: does not use HPI HPI HPI: Patient is a 54-year-old female here for atypia during her stereotactic biopsy. She notes that she did get a hematoma after the biopsy but it is shrinking. ROS General General: Yes weight change and fatigue; No appetite, colon cancer, breast cancer or weakness HEENT HEENT: Yes eye surgery; No difficulty swallowing, eye injury, swollen glands or hoarseness Endo Endocrine: No thyroid disease, diabetes mellitus, thyroid cancer, Hair loss, heat intolerance or cold intolerance Skin Skin: No rash or changing moles Breast Breast: Yes abnormal mammogram; No left breast lump, right breast lump, nipple discharge, breast pain, abnormal US or breast enlargement Musc Musculoskeletal: Yes arthritis; No back problems, rheumatoid arthritis, gout or joint pain Cardio Cardiovascular: No murmur, pacemaker, heart disease, atrial fibrillation, high blood pressure, heart attack, heart stent, palpitations, shortness of breath with exertion or chest pain Psych Psychiatric: No depression, anxiety or hearing voices Resp Respiratory: No shortness of breath, Yes sleep apnea, No cough, No COPD, No asthma, No emphysema and No wheezing Gastro Gastrointestinal: No abdominal pain, No nausea or vomiting, No diarrhea, No constipation, Yes blood in stool, Yes acid reflux, Yes hemorrhoids, No ulcers, No gallbladder problem and Yes black,tarry stools Arturo Hematologic: No blood thinners, No blood disorders, No bleeding, No anemia and No blood clots Neuro Neurologic: No system reviewed and no additional complaints, except as documented, No as per HPI, No abnormal gait, No abnormal hearing, No abnormal movements, No abnormal speech, No behavioral changes, No burning sensations, No confusion, No convulsions, No disequilibrium, No dizziness, No localized weakness, No frequent falls, No headache(s), No lack of coordination, No loss ofvision, No memory loss, Yes numbness, No other visual disturbances, No radicularpain, No restless legs, No sensory deficit, No syncope, Yes tingling, No tremor(s), No weakness and No other Exam Const General: cooperative Orientation: alert and oriented x3 HENMT Head: normal to inspection Neck Neck: normal visual inspection and full ROM Chest Chest palpation & inspection: normal inspection of the chest Resp Effort & Inspection: normal respiratory effort Auscultation: clear to auscultation bilaterally Cardio Rate: regular rate Rhythm: regular rhythm GI Inspection: non-distended Palpation: soft and nontender Skin General: no rashes or lesions noted Neuro General: patient alert and patient oriented x3 Extrem General: full ROM Psych Appearance: grossly normal Mental Status: mental status grossly normal Assessment and Plan Assessment and Plan (1) Atypical ductal hyperplasia of left breast: Status: Acute Plan: The patient had stereotactic biopsy of microcalcifications. This came back withmicrocalcifications along with atypical ductal hyperplasia. Given the fact thatthere was atypia I recommended excisional biopsy with stereotactic guided wire localization. I discussed the procedure thoroughly with her. I also discussed possibility of having to bring her back for margins and lymph node if this comesback malignant. I discussed the risks including but not limited to bleeding, infection, need for further surgery. Patient understands all the risks and is willing to proceed. Denys Carson MD Pager: [facility] [address], [address] [place] [address] Office: Coding Level of Care Code Off vis,est,level 3 Diagnoses Atypical ductal hyperplasia of left breast N60.92 03/02/25 1040 <Electronically signed by Denys alcala MD> Date _ Denys Carson MD Cosigner Signature: Date (if applicable) CC: ~ [facility] Work Phone: 1(347) 464-153404-28-2025 Procedure note [facility] Medical Records Department [address] [place] [id number] Operative Report 02/12/25 0932 MR#: [id number] Acct: [id number] Name: PAWEL WELDONKATHERINE TAPIA Rep #: [id number] : 1970 54 From: Denys don MD PCP: Dr. Susan Pompa MD Status:[facility] Location: [facility] Operative Report (Standard) Operative Information Date of Procedure: 02/12/25 Pre-Operative Diagnosis: Left breast microcalcifications Post-Operative Diagnosis: Same Surgery/Procedure Performed: Stereotactic guided left breast core needle biopsy with placement of clip catalog library assistant: No Type of Anesthesia: Local Procedure Start Time: 09:05 Procedure Stop Time: : Select all DRAINS/GRAFTS/IMPLANTS that apply: None Estimated Blood Loss: 10 Specimen collected: Yes Description of specimen(s) removed: Left breast biopsy Description of surgery: Patient was brought to the stereotactic room and placed in the stereotactic table and the microcalcifications were localized with stereotactic views. The microcalcifications were targeted using the computer and then the needle was setup. The skin was prepped. The skin was injected with local anesthetic. A small veronica was made with a scalpel and the needle was placed into the breast andfired. Stereotactic images were once again obtained that showed that this was in good position. Next biopsies were obtained and the specimens were x-rayed. The specimen showed the microcalcifications. The clip was then placed into the breast and the needle was removed. Pressure was held to maintain hemostasis. N ext a Steri-Strip and bandage were placed over the incision. Mammogram images were obtained after the biopsy. Surgical Findings: Left breast microcalcifications Complications Complications: No 02/12/25 0934 Cosigner Signature (if applicable): CC: Dr. Denys Carson MD; Dr. Susan Pompa MD~ Signed [facility]04-24-2025 Evaluation note* Diagnosis Onset Date Resolution Status Admit Date Microcalcification of left b reast on mammogram acute February 08, 2025 1:46pm [facility] Work Phone: 1([phone]) 641-431604-24-2025 Evaluation note* Diagnosis Onset Date Resolution Status Admit Date Microcalcification of left b reast on mammogram acute February 08, 2025 1:46pm Atypical ductal hyperplasia of left breast acute March 02, 2025 10:17am [facility] Work Phone: 1([phone]) 589-234204-24-2025 Evaluation note* Diagnosis Onset Date Resolution Status Admit Date Microcalcification of left b reast on mammogram acute February 08, 2025 1:46pm Atypical ductal hyperplasia of left breast acute March 02, 2025 10:17am Atypical ductal hyperplasia of left breast acute April 11, 2025 10:04am [facility] Work Phone: 1([phone]) 648-843704-24-2025 Evaluation note* Diagnosis Onset Date Resolution Status Admit Date Microcalcification of left b reast on mammogram acute February 08, 2025 1:46pm Atypical ductal hyperplasia of left breast acute March 02, 2025 1 0:17am Atypical ductal hyperplasia of left breast acute April 11, 2025 10:04am Atypical ductal hyperplasia of left breast acute May 25, 2025 11:21am Ovarian cyst acute May 25, 2025 11:21am Prolapse of female pelvic organs acu te May 25, 2025 11:21am [facility] Work Phone: 1(876) 831-965112-20-2024 [facility] Medical Records Department [address] [place] [address] History Physical Exam 10/06/24 0940 MR#: [id number] Acct: [id number] Name: KATHERINE GORDON Rep #: [id number] : 1970 53 From: Denys Carson MD PCP: Dr. Susan Pompa MD Status:[facility] Location: [place] History and Physical Date of Admission: 10/06/24 Intake Vital Signs 08/16/2408:53 Height 5 ft 7 in Weight: 225 lb BMI 35.2 BP 142/95 H Blood Pressure Location Lt brachial Position Sitting Respiration 17 Pulse 69 Pulse Source Monitor Temp 97 F L Temp Source Temporal Pulse Oximetry (%) 96 Oxygen Delivery Method room air Intake Visit Reasons: ANEMIA - RECTAL BLEEDING Chief Complaint: anemia, rectal bleeding Is patient in pain?: No Allergies Penicillins (PCN) Allergy (Severe, Verified 08/16/24 08:56) SwellingSulfa (Sulfonamide Antibiotics) Allergy (Intermediate, Verified 08/16/24 08:56) Other Medications ???Medication ???Instructions ???Recorded ???Confirmed ???Type ascorbic acid (vitamin C) 500 mg mg PO 08/16/24 08/16/24 History capsule bupropion HCl 150 mg 24 hr tablet, 150 mg PO QAM 08/16/24 08/16/24 History extended release (Wellbutrin XL) ferrous sulfate 325 mg (65 mg 325 mg PO QDAY 08/16/24 08/16/24 History iron) tablet (Feosol) loratadine 10 mg tablet (Claritin) 10 mg PO QDAY 08/16/24 08/16/24 History magnesium 200 mg tablet 200 mg PO QDAY 08/16/24 08/16/24 History PFSH Medical History (Updated 08/16/24 @ 08:49 by Brianda Jimenez) Acid reflux Arthritis Fatigue Surgical History (Updated 08/16/24 @ 08:50 by Brianda Jimenez) H/O foot surgery History of cholecystectomy Family History (Updated 08/16/24 @ 08:50 by Brianda Jimenez) Father Heart diseaseGrandmother Heart disease Social History (Updated 08/16/24 @ 08:53 by Brianda Jimenez) Smoking Status: Never smoker alcohol intake: never substance use type: does not use HPI HPI HPI: Patient is a 53-year-old female here with iron deficiency anemia. The patient has had anemia for several years. She has never had EGD or colonoscopy. She reports seeing gross blood in her stool occasionally but it is bright red and small in volume. She denies nausea or vomiting but does have postprandial pain and GERD. She does not take a PPI. ROS General General: Yes weight change and fatigue; No appetite, colon cancer, breast cancer or weakness HEENT HEENT: Yes eye surgery; No difficulty swallowing, eye injury, swollen glands or hoarseness Endo Endocrine: No thyroid disease, diabetes mellitus, thyroid cancer, Hair loss, heat intolerance or cold intolerance Skin Skin: No rash or changing moles Musc Musculoskeletal: Yes arthritis; No back problems, rheumatoid arthritis, gout or joint pain Cardio Cardiovascular: No murmur, pacemaker, heart disease, atrial fibrillation, high blood pressure, heart attack, heart stent, palpitations, shortness of breat with exertion or chest pain Psych Psychiatric: No depression, anxiety or hearing voices Resp Respiratory: No shortness of breath, Yes sleep apnea, No cough, No COPD, No asthma, No emphysema and No wheezing Gastro Gastrointestinal: No abdominal pain, No nausea or vomiting, No diarrhea, No constipation, Yes blood in stool, Yes acid reflux, Yes hemorrhoids, No ulcers, No gallbladder problem and Yes black,tarry stools Arturo Hematologic: No blood thinners, No blood disorders, No bleeding, No anemia and No blood clots Neuro Neurologic: No system reviewed and no additional complaints, except as documented, No as per HPI, No abnormal gait, No abnormal hearing, No abnormal movements, No abnormal speech, No behavioral changes, No burning sensations, No confusion, No convulsions, No disequilibrium, No dizziness, No localized weakness, No frequent falls, No headache(s), No lack of coordination, No loss of vision, No memory loss, Yes numbness, No other visual disturbances, No radicular pain, No restless legs, No sensory deficit, No syncope, Yes tingling, No tremor(s), No weakness and No other Exam Const General: cooperative Orientation: alert and oriented x3 HENMT Head: normal to inspection Neck Neck: normal visual inspection and full ROM Chest Chest palpation inspection: normal inspection of the chest Resp Effort Inspection: normal respiratory effort Auscultation: clear to auscultation bilaterally Cardio Rate: regular rate Rhythm: regular rhythm GI Inspection: non-distended Palpation: soft and nontender Skin General: no rashes or lesions noted Neuro General: patient alert and patient oriented x3 Extrem General: full ROM Psych Appearance: grossly normal Mental Status: mental status grossly normal Assessment and Plan Assessment and Plan (1) Anemia: Status: Acute Plan: (more content not included)...[facility] Dunbar [facility] Note Date/Time March 28, 2025 1:55 pm [facility] Medical Records Department [address] [place] [address] Anesthesia Postop Eval II 03/28/25 1354 MR#: [id number] Acct: [id number] Name: KATHERINE GORDON Rep #: [id number] : 1970 54 From: Alpesh Dunbar MD PCP: Dr. Susan Pompa MD Status:REG SDC Y Race: C Location: [place] [address] Anesthesia Postop Eval I Sum Postop Eval Completion status Anesthesia document: Postop Eval 1 completed: Yes Anesthesia Postop Eval I Summary Anesthesia Postop Eval I Summary: Anesthesia Postop Eval I: Assessment Summary Airway patent Yes 03/28/25 12:33 CASH APPLICATION [email or web address] Spontaneous unlabored Yes 03/28/25 12:33 CASH APPLICATION CLERK.JDEF respirations Mental status Awake,Calm 03/28/25 12:33 CASH APPLICATION CLERK.JDEF nausea No 03/28/25 12:33 CASH APPLICATION CLERK.JDEF Vomiting No 03/28/25 12:33 CASH APPLICATION CLERK.JDEF Anesthesia Postop Eval I: Fluid Summary Crystalloid volume administer 800 03/28/25 12:33 CASH APPLICATION CLERK.JDEF (ml) Colloids volume administered ( ml) Blood Product volume administered (ml) Total IV fluid infused 800 03/28/25 12:33 CASH APPLICATION CLERK.JDEF Anesthesia Postop Eval I: Summary Notes Anesthesia Complication No 03/28/25 12:33 CASH APPLICATION CLERK.JDEF Anesthesia Complication Comment: Post-operative progress note Anesthesia: Postop Eval II Evaluation Mental status: Awake Pain Level: 0 nausea: No Vomiting: No 03/28/25 1355 <Electronically signed by Alpesh Dunbar MD > Date _ Alpesh Rawls Signature: Date CC: ~ Signed [facility] Work Phone: Discharge summary Author Denys Carson [facility] Note Date/Time March 28, 2025 1:12 pm [facility] Medical Records Department [address] [place] [address] Instructions for Home/Discharge Instructions 03/28/25 1310 MR#: [id number] Acct: [id number] Name: KATHERINE GORDON Rep #: [id number] : 1970 54 From: Denys don MD PCP: Dr. Susan Pompa MD Status:REG [facility] [place] Discharge Instructions Diet Discharge Diet: No restrictions Activity Discharge Activity: May Not Drive (for 2-3 days or while taking narcotic pain medications.) and May Shower May shower in (days): 1 Lifting Restrictions: 15 lbs for 1 week Additional Activity Instructions:: Alternate ibuprofen and Tylenol for pain control, oxycodone for breakthrough pain Dressing / Incision Call your doctor if your incision/area has: Continuous Slow Oozing, Sudden Increased Bleeding, Increased Pain/ Swelling, Increased Redness, Foul Smelling Discharge and Swelling at the incision site Call your doctor if you observe: Fever of 101 or Higher Suture Line Care: Avoid Pulling/Pushing and Avoid Pinching/Bending Cleanse incision/area with: Soap & Water Additional Dressing/Incision Instructions:: Remove bulky dressing tomorrow. Follow Up Care Please Follow Up With: Denys Carson MD When: Please call to schedule 2 week follow up appointment. [phone] Test Results: Test results from this visit will be discussed in further detail at your follow- up appointment, if applicable. Discharge Plan Admission Attending Provider: Denys Carson Primary Care Provider: Susan Pompa Instructions Print Language: Czech Discharge Orders/Prescriptions Prescriptions: New oxycodone 5 mg tablet 5 - 10 mg PO Q6H PRN (Reason: pain) 5 Days Qty: 14 0RF No Action bupropion HCl [Wellbutrin XL] 150 mg tablet extended release 24 hr 150 mg PO QAM magnesium 200 mg tablet 200 mg PO QDAY loratadine [Claritin] 10 mg tablet 10 mg PO DAILY PRN PRN (Reason: allergy symptoms) cyanocobalamin-liver extract Tablet 3 tab PO QWEEK cranberry 500 mg capsule 1,000 mg PO QDAY PRN (Reason: urinary tract irritation) Rx Instructions: administer with a meal Referrals / Follow Up: Susan Pompa MD [Primary Care Provider] - Disposition Disposition (needs filled in before D/C Order can be placed): Home, Self Care 03/28/25 1312<Electronically signed by Denys Carson MD>Denys Carson MD CC: Dr. Susan Pompa MD ~ Signed [facility] Work Phone: Evaluation noteNo assessment information available [facility] Work Phone: Progress note Author Leanne Fuentes [facility] Note Date/Time July 23, 2025 11 :40am [facility] [address], [address] [place] [address] OFFICE VISIT Date of Service: 07/23/25 MR#: [id number] Acct: [id number] Name: KATHERINE GORDON Rep #: [id number] : 1970 Provider: Dr. Tina Red DO Age/Sex: 54/F Location: [facility] Status: Signed Intake Vital Signs 05/25/25 11:33 07/23/25 10:13 07/23/25 10:14 Height 5 ft 7 in 5 ft 7 in 5 ft 7 in Weight: 203 lb 7 oz 206 lb 7 oz BMI 31.8 32.3 BP 173/100 H 152/92 H Intake Visit Reasons: discussion has ?, pencilled in for 08/28 surgery Billboard Poster Required: No Is patient in pain?: No Allergies Penicillins (PCN) Allergy (Severe, Verified 07/23/25 10:13) Swelling Sulfa (Sulfonamide Antibiotics) Allergy (Intermediate, Verified 07/23/25 10:13) Other Medications ?Medication ?Instructions ?Recorded ?Confirmed ?Type bupropion HCl 150 mg 24 hr tablet, 150 mg PO QAM 08/1607/23/25 History extended release (Wellbutrin XL) loratadine 10 mg tablet (Claritin) 10 mg PO DAILY PRN PRN allergy 08/16/24 07/23/25 History symptoms magnesium 200 mg tablet 200 mg PO QDAY 08/16/2404/11 History cyanocobalamin-liver extract tablet 3 tab PO QWEEK 07/23/25 History Post menopausal: No Patient : No : No PFSH Medical History Microcalcification of left breast on mammogram Post-menopausal Wears contact lenses Depression Anxiety Anemia Back pain Injury of head and neck Gastric reflux Non-smoker Shortness of breath on exertion History of edema Arthritis Fatigue Surgical History Status post left breast lumpectomy Hx of colonoscopy History of facial surgery Hx of wisdom tooth extraction History of dental surgery H/O foot surgery History of cholecystectomy Family History Father Heart disease CVA (cerebral vascular accident) Myocardial infarction Grandmother Heart disease Grandfather Heart disease Social History Smoking Status: Never smoker alcohol intake: never substance use type: does not use caffeine: Yes what type of physical activity do you participate in: none seatbelt use: always do you feel safe at home: Yes additional social history: (however [place] in another [place] due to taking care of family members)-Fredis DEMARCO discussion has ?, pencilled in for 08/28 surgery Details: The patient is a 54-year-old female with a history of focal atypical ductal hyperplasia presenting for evaluation of a large ovarian cyst, urinary symptoms,and menopausal concerns. Ovarian Cyst - Diagnosed with a large ovarian cyst measuring 7.5 x 7.1 x 5.3 cm, septated. - Reports intermittent tweaks in the pelvic area, similar to premenstrual crampiness. - Experiences significant lower back pain, described as achiness, for about a year. - Recently felt a sharp pain in the pelvic area, accompanied by a strong urge tourinate. - Noticed increased urinary urgency and difficulty holding urine over the past three weeks. - Reports feeling bladder irritation and discomfort, especially when the bladderis full. - Cyst has shown minimal change in size between April and June 25 scans. - Scheduled for laparoscopic surgery on August 28 to remove the cyst. Urinary Symptoms - Reports urinary urgency and difficulty holding urine over the past three weeks. - Feels bladder irritation and discomfort, especially when the bladder is full. - Experiences incomplete bladder emptying and bowel movements over the last six months. - Family history of prolapse; cousin reportedly has to push up to empty bladder. Menopausal Concerns - Recently entered menopause. - Reports lower back pain and crampiness similar to premenstrual symptoms for the past 10 months. - Experiences vaginal dryness and discomfort during intercourse. - Interested in trying vaginal estrogen cream to alleviate symptoms. Skin Discoloration - Noticed dark patches around the bikini line and back about a year ago. - Initially thought it was a heat rash, but it persisted. - Reports itching in the affected areas. - Prescribed Diflucan by Dr. Miles, which cleared up the itchiness. - Suspects the discoloration may be related to high sugar intake and stress. Weight Gain - Reports weight gain and abdominal pooch after losing weight previously. - Attributes weight gain to poor diet and stress. - Noticed increased abdominal girth, suspects it may be related to the ovarian cyst. Focal Atypical Ductal Hyperplasia - Diagnosed with focal atypical ductal hyperplasia in March. - Reports shooting pains in the breast area where the hyperplasia was diagnosed. - Wears scar tape on the affected area, notices slight improvement in volume. - Interested in follow-up with a breast specialist. Anemia - History of anemia, unable to tolerate iron supplements. - Takes organic grass-fed beef liver capsules to manage anemia. - Hemoglobin level improved from 9.7 to 13.2 over six months. History 6 Elective abortions Hx Para 3 Spontaneous abortions Hx # Term Pregnancies Ectopic pregnancies Hx # Pregnancies Multiple births # of living children Past Pregnancies Del. Date Name GA/Weeks Outcome Route Bth Weight Gen Labor Lgth Anesthesia Del Locatn Provider FOB Unknown Jimmie Unknown Pipestem Unknown Jami ROS Const ROS Unobtainable: All systems reviewed & are unremarkable except as noted in H Resp Resp: Reports system reviewed and no additional complaints, except as documented; Denies cough GI GI: Reports as per HPI Psych Psych: Reports system reviewed and no additional complaints, except as documented Exam Const General: cooperative, healthy appearing, comfortable and no acute distress Resp Effort & Inspection: normal respiratory effort General: bimanual renal exam normal bilaterally External Female Exam: normal appearance of the urethra Urethra: normal appearance of the urethra Speculum Exam - Vagina: normal appearance of the vagina Speculum Exam - Cervix: normal appearance of the cervix Bimanual Exam- Adnexa, other: normal adnexae and cystocele Pelvic Support: cystocele mild Skin General: no rashes or lesions noted Psych Appearance: grossly normal Speech and Movement: speech and movement normal Results POC Urinalysis Dip (Clinic) Office Urine Color Yellow Last Edit by Susan Silva on 07/23/25 12:03 Office Urine Clarity Cloudy Last Edit by Susan Silva on 07/23/25 12:03 Office Urine Glucose Negative Last Edit by Susan Silva on 07/23/25 12: 03 Office Urine Ketones Negative Last Edit by Susan Silva on 07/23/25 12: 03 Off Ur Spec [place] 1.015 Last Edit by Susan Silva on 07/23/25 12:03 Office Urine pH 5.0 Last Edit by Susan Silva on 07/23/25 12:03 Office Urine Bilirubin Negative Last Edit by Susan Silva on 07/23/25 12:03 Office Urine Urobilinogen 0.2 mg/dL Last Edit by Susan Silva on 12:03 Office Urine Blood Negative Last Edit by Susan Silva on 07/23/25 12:03 Office Urine Blood Hemolyzed Last Edit by Susan Silva on 07/23/25 12: 03 Office Urine Protein Negative Last Edit by Susan Silva on 07/23/25 12: 03 Office Urine Nitrate Negative Last Edit by Susan Silva on 07/23/25 12: 03 Off Ur Leukocytes Negatve Last Edit by Susan Silva on 07/23/25 12:03 Coding Level of Care Code Off vis,est,level 4 Diagnoses Prolapse of female pelvic organs N81.9 Ovarian cyst N83.209 Atypical ductal hyperplasia of left breast N60.92 Assessment and Plan Assessment and Plan (1) Prolapse of female pelvic organs: Status: Acute (2) Ovarian cyst: Status: Acute (3) Atypical ductal hyperplasia of left breast: Status: Acute Orders: Orders Culture, Urine Today R10.9 - Unspecified abdominal pain POC Urinalysis Dip (Clinic) Today R10.9 - Unspecified abdominal pain Plan # 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 - Urinary urgency, frequency, and incomplete emptying attributed to mass effect from ovarian cyst. - Chronic lower back pain and pelvic cramping likely secondary to mass effect from ovarian cyst. - Laparoscopic oophorectomy scheduled for August 28; discussed surgical approach, expected recovery (1 week), and rare risk of malignancy. - Discussed intraoperative pathology of cyst fluid and ovary; results expected within 1?2 weeks post-op. - Advised to keep bladder as empty as possible to minimize discomfort. - Pre-op labs (CBC, type and screen) to be completed within 14 days of surgery. - Urine culture to rule out coincidental UTI. - Discussed post-op pain management: prescription-strength ibuprofen preferred, oxycodone 5 mg (10?20 tablets) for breakthrough pain. - Follow-up 2 weeks post-op to review pathology and assess recovery. Patient Instructions: We discussed your upcoming surgery for uterine prolapse: - Your surgery is scheduled for [address] Jesus. - Before surgery, you will need a pelvic ultrasound to assess the size of your uterus. This will help determine whether the procedure can be done vaginally or if laparoscopic assistance will be required. - I have ordered the pelvic ultrasound. You will be contacted with scheduling details. - If the ultrasound shows that your uterine lining is thicker than 11 mm, a biopsy may be required before surgery to rule out any abnormal or cancerous cells. We discussed your pre-surgical clearance: - You will need to complete a pre-op appointment, which includes blood work and a type and screen (to prepare for potential blood transfusion). The type and screen must be done within 14 days of surgery. - You are also seeing a bread slicer machine and will need to see a chocolate finisher for clearance. - I have sent a referral to your chocolate finisher?s office. They will contact you to schedule an appointment. - The chocolate finisher will determine how long you need to stop taking Eliquis (a blood thinner) before surgery and when to resume it afterward. - You will also need an EKG as part of the cardiac clearance. We discussed post-operative restrictions and recovery: - For the first 2 months after surgery: - Avoid lifting more than 10 pounds. - Avoid activities that increase intra-abdominal pressure, such as heavy lifting or straining. - Walking and light bhdea-wh-vjtusk exercises without weights are acceptable. - Avoid swimming or submerging in water to prevent infection. - After 2 months, you can gradually resume normal activities, including light hand weights and swimming. - Listen to your body: if you experience bleeding, pulling sensations, or pressure, reduce your activity level. We discussed your current symptoms and history: - Your uterine prolapse is grade 4, with the cervix extending beyond the vaginalopening. This can lead to discomfort and potential complications, such as abrasions or infections. Surgery will address these issues. - You reported no recent bleeding. - You previously tried a pessary, but it was not effective. We discussed your follow-up schedule: - Your pre-op appointment is scheduled for August 20. - You will have follow-up visits 2 weeks and 6 weeks after surgery to monitor your recovery. - Dr. Jesus will also follow up with you as part of your post-operative care. If you have any questions or concerns before your surgery, please contact our office. 07/23/25 3763 <Electronically signed by Leanne Weiss DO> Date _ Leanne Red DO Cosigner Signature: Date (if applicable) CC: ~ [facility] Work Phone: Reason for referral (narrative)No reason for referral information availableWCleveland [facility] Work Phone: Family History No Family History Records Found Relationship Condition Age at Onset Recorded Date/[place] father Cardiac disease Unknown grandmother Cardiac disease Unknown Relationship Condition Age at Onset Recorded Date/T [place] father Cardiac disease Unknown Cerebrovascular accident (CVA) Unknown Myocardial infarction Unknown grandmother Cardiac disease Unknown grandfather Cardiac disease Unknown Advance Directives No Advanced Directives Records Found Advance Directive Response Recorded Date/ Time Living Will No October 04 12:16pm Do you have a Healthcare Power of Aviation Maintenance Instructor? No October 04, 2024 12:16pm Advance Directive Response Recorded Date/ Time Do you have a Healthcare Power of Aviation Maintenance Instructor? No March 14, 2025 3:04pm Chief Complaint and Reason for Visit Chief Complaint Admit Date SCREENING January 22, 2025 8:22 am Chief Complaint Admit Date SCREENING January 22, 2025 8:22 am ABN MAMM February 02, 2025 2:2 0pm Chief Complaint Admit Date SCREENING January 22, 2025 8:22 am ABN MAMM February 02, 2025 2:2 0pm BIRADS 4- CALCIFICATIONS February 08 1:46pm R92.0 - Mammographic microcalcification found on d February 12, 2025 8:25am R92.0 - Mammographic microcalcification found on d February 12, 2025 9:32am Reason for Visit Admit Date Microcalcification of left breast on fran mogram February 08, 2025 1:46pm Chief Complaint Admit Date SCREENING January 22, 2025 8:22 am ABN MAMM February 02, 2025 2:2 0pm BIRADS 4- CALCIFICATIONS February 08 1:46pm R92.0 - Mammographic microcalcification found on d February 12, 2025 8:25am R92.0 - Mammographic microcalcification found on d February 12, 2025 9:32am DISCUSS BREAST SURGERY March 02, 2025 10 :17am Reason for Visit Admit Date Microcalcification of left breast on fran mogram February 08, 2025 1:46pm Atypical ductal hyperplasia of left [address] March 02, 2025 10:17am Chief Complaint Admit Date SCREENING January 22, 2025 8:22 am ABN MAMM February 02, 2025 2:2 0pm BIRADS 4- CALCIFICATIONS February 08 1:46pm R92.0 - Mammographic microcalcification found on d February 12, 2025 8:25am R92.0 - Mammographic microcalcification found on d February 12, 2025 9:32am DISCUSS BREAST SURGERY March 02, 2025 10 :17am URINE March 27, 2025 3:07 pm Breast, Lumpectomy, NL left stereo wire localizati March 28, 2025 9:58am Breast, Lumpectomy, NL left stereo wire localizati March 28, 2025 11:00am Chief Complaint Admit Date SCREENING January 22, 2025 8:22 am ABN MAMM February 02, 2025 2:2 0pm BIRADS 4- CALCIFICATIONS February 08 1:46pm R92.0 - Mammographic microcalcification found on d February 12, 2025 8:25am R92.0 - Mammographic microcalcification found on d February 12, 2025 9:32am DISCUSS BREAST SURGERY March 02, 2025 10 :17am URINE March 27, 2025 3:07 pm Breast, Lumpectomy, NL left stereo wire localizati March 28, 2025 9:58am Breast, Lumpectomy, NL left stereo wire localizati March 28, 2025 11:00am LUMPECTOMY 6-11 April 11, 2025 10:0 4am Chief Complaint Admit Date SCREENING January 22, 2025 8:22 am ABN MAMM February 02, 2025 2:2 0pm BIRADS 4- CALCIFICATIONS February 08 1:46pm R92.0 - Mammographic microcalcification found on d February 12, 2025 8:25am R92.0 - Mammographic microcalcification found on d February 12, 2025 9:32am DISCUSS BREAST SURGERY March 02, 2025 10 :17am URINE March 27, 2025 3:07 pm Breast, Lumpectomy, NL left stereo wire localizati March 28, 2025 9:58am Breast, Lumpectomy, NL left stereo wire localizati March 28, 2025 11:00am LUMPECTOMY -April 11, 2025 10:0 4am RLQ PAIN, ASSESS RT OVARY April 23, 2025 5:53pm Reason for Visit Admit Date Microcalcification of left breast on fran mogram February 08, 2025 1:46pm Atypical ductal hyperplasia of left [address] March 02, 2025 10:17am Atypical ductal hyperplasia of left [address] April 11, 2025 10:04am Chief Complaint Admit Date ABN MAMM February 02, 2025 2:2 0pm BIRADS 4- CALCIFICATIONS February 08 1:46pm R92.0 - Mammographic microcalcification found on d February 12, 2025 8:25am R92.0 - Mammographic microcalcification found on d February 12, 2025 9:32am DISCUSS BREAST SURGERY March 02, 2025 10 :17am URINE March 27, 2025 3:07 pm Breast, Lumpectomy, NL left stereo wire localizati March 28, 2025 9:58am Breast, Lumpectomy, NL left stereo wire localizati March 28, 2025 11:00am LUMPECTOMY -April 11, 2025 10:0 4am RLQ PAIN, ASSESS RT OVARY April 23, 2025 5:53pm Pelvic Pain ([place]) May 25, 2025 1 1:21am Chief Complaint Admit Date ABN MAMM February 02, 2025 2:2 0pm BIRADS 4- CALCIFICATIONS February 08 1:46pm R92.0 - Mammographic microcalcification found on d February 12, 2025 8:25am R92.0 - Mammographic microcalcification found on d February 12, 2025 9:32am DISCUSS BREAST SURGERY March 02, 2025 10 :17am URINE March 27, 2025 3:07 pm Breast, Lumpectomy, NL left stereo wire localizati March 28, 2025 9:58am Breast, Lumpectomy, NL left stereo wire localizati March 28, 2025 11:00am LUMPECTOMY -April 11, 2025 10:0 4am RLQ PAIN, ASSESS RT OVARY April 23, 2025 5:53pm Pelvic Pain ([place]) May 25, 2025 1 1:21am INT LABS May 25, 2025 12: 43pm Reason for Visit Admit Date Microcalcification of left breast on fran mogram February 08, 2025 1:46pm Atypical ductal hyperplasia of left [address] March 02, 2025 10:17am Atypical ductal hyperplasia of left [address] April 11, 2025 10:04am Atypical ductal hyperplasia of left [address] May 25, 2025 11:21am Ovarian cyst May 25, 2025 11: 21am Prolapse of female pelvic organs May 25, 2025 11:21am Chief Complaint Admit Date DISCUSS BREAST SURGERY March 02, 2025 10 :17am URINE March 27, 2025 3:07 pm Breast, Lumpectomy, NL left stereo wire localizati March 28, 2025 9:58am Breast, Lumpectomy, NL left stereo wire localizati March 28, 2025 11:00am LUMPECTOMY -April 11, 2025 10:0 4am RLQ PAIN, ASSESS RT OVARY April 23, 2025 5:53pm Pelvic Pain ([place]) May 25, 2025 1 1:21am INT LABS May 25, 2025 12: 43pm OVARIAN CYST June 25, 2025 5:58pm Reason for Visit Admit Date Atypical ductal hyperplasia of left [place] [facility] March 02, 2025 10:17am Atypical ductal hyperplasia of left [place] [facility] April 11, 2025 10:04am Atypical ductal hyperplasia of left [place] [facility] May 25, 2025 11:21am Ovarian cyst May 25, 2025 11: 21am Prolapse of female pelvic organs May 25, 2025 11:21am Chief Complaint Admit Date URINE March 27, 2025 3:07 pm Breast, Lumpectomy, NL left stereo wire localizati March 28, 2025 9:58am Breast, Lumpectomy, NL left stereo wire localizati March 28, 2025 11:00am LUMPECTOMY -April 11, 2025 10:0 4am RLQ PAIN, ASSESS RT OVARY April 23, 2025 5:53pm Pelvic Pain ([place]) May 25, 2025 1 1:21am INT LABS May 25, 2025 12: 43pm OVARIAN CYST June 25, 2025 5:58pm discussion has ?, pencilled in for 08/28 surgery July 23, 2025 10:13am Reason for Visit Admit Date Atypical ductal hyperplasia of left [place] [address] April 11, 2025 10:04am Atypical ductal hyperplasia of left [place] [facility] May 25, 2025 11:21am Ovarian cyst May 25, 2025 11: 21am Prolapse of female pelvic organs May 25, 2025 11:21am Atypical ductal hyperplasia of left [place] [address] July 23, 2025 10:13am Ovarian cyst July 23, 2025 10 :13am Prolapse of female pelvic organs July 23, 2025 10:13am Chief Complaint Admit Date RLQ PAIN, ASSESS RT OVARY April 23, 2025 5:53pm Pelvic Pain ([place]) May 25, 2025 1 1:21am INT LABS May 25, 2025 12: 43pm OVARIAN CYST June 25, 2025 5:58pm discussion has ?, pencilled in for 08/28 surgery July 23, 2025 10:13am Reason for Visit Admit Date Atypical ductal hyperplasia of left [place] [address] May 25, 2025 11:21am Ovarian cyst May 25, 2025 11: 21am Prolapse of female pelvic organs May 25, 2025 11:21am Atypical ductal hyperplasia of left [place] [address] July 23, 2025 10:13am Ovarian cyst July 23, 2025 10 :13am Prolapse of female pelvic organs July 23, 2025 10:13am Summary Purpose Additional Source Comments Care Teams (unrecognized sec tion and content) Team Status: Active Member Role Status Dates Dr. Susan Pompa MD Primary Care Provider Active Team Status: Inactive Member Role Status Dates Dr. Susan Pompa MD Primary Care Prov ider, Attending Provider, Referring Provider Active Team Status: Inactive Member Role Status Dates Dr. Susan Pompa MD Primary Care Provider Active Start: October 06, 2024 End: October 06, 2024 Dr. Susan Pompa MD Referring Provider Active Start: October 06, 2024 End: October 06, 2024 Dr. Denys Carson MD Attending Provider Active Start: October 06, 2024 End: October 06, 2024 Team Status: Active Member Role Status Dates Dr. Susan Pompa MD Primary Care Provider Active Start: October 06, 2024 Dr. Susan Pompa MD Referring Provider Active Start: October 06, 2024 Dr. Denys Carson MD Attending Provider Active Start: October 06, 2024 Dr. Denys Carson MD Other Provider Active Start: October 06, 2024 Team Status: Inactive Member Role Status Dates Dr. Susan Pompa MD Primary Care Provider Active Start: January 02, 2025 End: January 02, 2025 Dr. Susan Pompa MD Attending Provider Active Start: January 02, 2025 End: January 02, 2025 Team Status: Active Member Role Status Dates Dr. Susan Pompa MD Primary Care Provider Active Start: January 04, 2025 Dr. Susan Pompa MD Attending Provider Active Start: January 04, 2025 Team Status: Inactive Member Role Status Dates Dr. Susan Pompa MD Primary Care Provider Active Start: January 04, 2025 End: January 04, 2025 Dr. Susan Pompa MD Attending Provider Active Start: January 04, 2025 End: January 04, 2025 Team Status: Inactive Member Role Status Dates Dr. Susan Pompa MD Primary Care Provider Active Start: January 22, 2025 End: January 22, 2025 Dr. Susan Pompa MD Attending Provider Active Start: January 22, 2025 End: January 22, 2025 Dr. Susan Pompa MD Referring Provider Active Start: January 22, 2025 End: January 22, 2025 Team Status: Inactive Member Role Status Dates Dr. Susan Pompa MD Primary Care Provider Active Start: February 02, 2025 End: February 02, 2025 Dr. Susan Pompa MD Attending Provider Active Start: February 02, 2025 End: February 02, 2025 Dr. Susan Pompa MD Referring Provider Active Start: February 02, 2025 End: February 02, 2025 Team Status: Inactive Member Role Status Dates Dr. Susan Pompa MD Primary Care Provider Active Start: February 08, 2025 End: February 08, 2025 Dr. Susan Pompa MD Referring Provider Active Start: February 08, 2025 End: February 08, 2025 Dr. Denys Carson MD Attending Provider Active Start: February 08, 2025 End: February 08, 2025 Team Status: Inactive Member Role Status Dates Dr. Susan Pompa MD Primary Care Provider Active Start: February 12, 2025 End: February 12, 2025 Dr. Denys Carson MD Attending Provider Active Start: February 12, 2025 End: February 12, 2025 Dr. Denys Carson MD Referring Provider Active Start: February 12, 2025 End: February 12, 2025 Team Status: Active Member Role Status Dates Dr. Susan Pompa MD Primary Care Provider Active Start: February 12, 2025 Dr. Denys Carson MD Attending Provider Active Start: February 12, 2025 Dr. Denys Carson MD Referring Provider Active Start: February 12, 2025 Dr. Denys Carson MD Other Provider Active Start: February 12, 2025 Team Status: Inactive Member Role Status Dates Dr. Susan Pompa MD Primary Care Provider Active Start: March 02, 2025 End: March 02, 2025 Dr. Susan Pompa MD Referring Provider Active Start: March 02, 2025 End: March 02, 2025 Dr. Denys Carson MD Attending Provider Active Start: March 02, 2025 End: March 02, 2025 Team Status: Active Member Role Status Dates Dr. Susan Pompa MD Primary Care Provider Active Start: March 27, 2025 LUCIA Borrego Attending Provider Active St art: March 27, 2025 LUCIA Borrego Referring Provider Active St art: March 27, 2025 Team Status: Inactive Member Role Status Dates Dr. Susan Pompa MD Primary Care Provider Active Start: March 28, 2025 End: March 28, 2025 Dr. Denys Carson MD Attending Provider Active Start: March 28, 2025 End: March 28, 2025 Dr. Denys Carson MD Referring Provider Active Start: March 28, 2025 End: March 28, 2025 Team Status: Active Member Role Status Dates Dr. Susan Pompa MD Primary Care Provider Active Start: March 28, 2025 Dr. Denys Carson MD Attending Provider Active Start: March 28, 2025 Dr. Denys Carson MD Referring Provider Active Start: March 28, 2025 Dr. Denys Carson MD Other Provider Active Start: March 28, 2025 Team Status: Inactive Member Role Status Dates Dr. Susan Pompa MD Primary Care Provider Active Start: March 27, 2025 End: March 27, 2025 LUCIA Borrego Attending Provider Active St art: March 27, 2025 End: March 27, 2025 LUCIA Borrego Referring Provider Active St art: March 27, 2025 End: March 27, 2025 Team Status: Inactive Member Role Status Dates Dr. Susan Pompa MD Primary Care Provider Active Start: April 11, 2025 End: April 11, 2025 Dr. Susan Pompa MD Referring Provider Active Start: April 11, 2025 End: April 11, 2025 Dr. Denys Carson MD Attending Provider Active Start: April 11, 2025 End: April 11, 2025 Team Status: Active Member Role/Relationship Status Dates Dr. Susan Pompa MD Primary Care Provider Active Team Status: Inactive Member Role/Relationship Status Dates Dr. Susan Pompa MD Primary Care Provider Active Start: January 02, 2025 End: January 02, 2025 Dr. Susan Pompa MD Attending Provider Active Start: January 02, 2025 End: January 02, 2025 Team Status: Inactive Member Role/Relationship Status Dates Dr. Susan Pompa MD Primary Care Provider Active Start: January 04, 2025 End: January 04, 2025 Dr. Susan Pompa MD Attending Provider Active Start: January 04, 2025 End: January 04, 2025 Team Status: Inactive Member Role/Relationship Status Dates Dr. Susan Pompa MD Primary Care Provider Active Start: January 22, 2025 End: January 22, 2025 Dr. Susan Pompa MD Attending Provider Active Start: January 22, 2025 End: January 22, 2025 Dr. Susan Pompa MD Referring Provider Active Start: January 22, 2025 End: January 22, 2025 Team Status: Inactive Member Role/Relationship Status Dates Dr. Susan Pompa MD Primary Care Provider Active Start: February 02, 2025 End: February 02, 2025 Dr. Susan Pompa MD Attending Provider Active Start: February 02, 2025 End: February 02, 2025 Dr. Susan Pompa MD Referring Provider Active Start: February 02, 2025 End: February 02, 2025 Team Status: Inactive Member Role/Relationship Status Dates Dr. Susan Pompa MD Primary Care Provider Active Start: February 08, 2025 End: February 08, 2025 Dr. Susan Pompa MD Referring Provider Active Start: February 08, 2025 End: February 08, 2025 Dr. Denys Carson MD Attending Provider Active Start: February 08, 2025 End: February 08, 2025 Team Status: Inactive Member Role/Relationship Status Dates Dr. Susan Pompa MD Primary Care Provider Active Start: February 12, 2025 End: February 12, 2025 Dr. Denys Carson MD Attending Provider Active Start: February 12, 2025 End: February 12, 2025 Dr. Denys Carson MD Referring Provider Active Start: February 12, 2025 End: February 12, 2025 Team Status: Active Member Role/Relationship Status Dates Dr. Susan Pompa MD Primary Care Provider Active Start: February 12, 2025 Dr. Denys Carson MD Attending Provider Active Start: February 12, 2025 Dr. Denys Carson MD Referring Provider Active Start: February 12, 2025 Dr. Denys Carson MD Other Provider Active Start: February 12, 2025 Team Status: Inactive Member Role/Relationship Status Dates Dr. Susan Pompa MD Primary Care Provider Active Start: March 02, 2025 End: March 02, 2025 Dr. Susan Pompa MD Referring Provider Active Start: March 02, 2025 End: March 02, 2025 Dr. Denys Carson MD Attending Provider Active Start: March 02, 2025 End: March 02, 2025 Team Status: Inactive Member Role/Relationship Status Dates Dr. Susan Pompa MD Primary Care Provider Active Start: March 27, 2025 End: March 27, 2025 LUCIA Borrego Attending Provider Active St art: March 27, 2025 End: March 27, 2025 LUCIA Borrego Referring Provider Active St art: March 27, 2025 End: March 27, 2025 Team Status: Inactive Member Role/Relationship Status Dates Dr. Susan Pompa MD Primary Care Provider Active Start: March 28, 2025 End: March 28, 2025 Dr. Denys Carson MD Attending Provider Active Start: March 28, 2025 End: March 28, 2025 Dr. Denys Carson MD Referring Provider Active Start: March 28, 2025 End: March 28, 2025 Team Status: Active Member Role/Relationship Status Dates Dr. Susan Pompa MD Primary Care Provider Active Start: March 28, 2025 Dr. Denys Carson MD Attending Provider Active Start: March 28, 2025 Dr. Denys Carson MD Referring Provider Active Start: March 28, 2025 Dr. Denys Carson MD Other Provider Active Start: March 28, 2025 Team Status: Inactive Member Role/Relationship Status Dates Dr. Susan Pompa MD Primary Care Provider Active Start: April 11, 2025 End: April 11, 2025 Dr. Susan Pompa MD Referring Provider Active Start: April 11, 2025 End: April 11, 2025 Dr. Denys Carson MD Attending Provider Active Start: April 11, 2025 End: April 11, 2025 Team Status: Inactive Member Role/Relationship Status Dates Dr. Susan Pompa MD Primary Care Provider Active Start: April 23, 2025 End: April 23, 2025 LUCIA Borrego Attending Provider Active St art: April 23, 2025 End: April 23, 2025 LUCIA Borrego Referring Provider Active St art: April 23, 2025 End: April 23, 2025 Team Status: Inactive Member Role/Relationship Status Dates Dr. Susan Pompa MD Primary Care Provider Active Start: February 02, 2025 End: February 02, 2025 Dr. Susan Pompa MD Attending Provider Active Start: February 02, 2025 End: February 02, 2025 Dr. Susan Pompa MD Referring Provider Active Start: February 02, 2025 End: February 02, 2025 Team Status: Inactive Member Role/Relationship Status Dates Dr. Susan Pompa MD Primary Care Provider Active Start: February 08, 2025 End: February 08, 2025 Dr. Susan Pompa MD Referring Provider Active Start: February 08, 2025 End: February 08, 2025 Dr. Denys Carson MD Attending Provider Active Start: February 08, 2025 End: February 08, 2025 Team Status: Inactive Member Role/Relationship Status Dates Dr. Susan Pompa MD Primary Care Provider Active Start: February 12, 2025 End: February 12, 2025 Dr. Denys Carson MD Attending Provider Active Start: February 12, 2025 End: February 12, 2025 Dr. Denys Carson MD Referring Provider Active Start: February 12, 2025 End: February 12, 2025 Team Status: Active Member Role/Relationship Status Dates Dr. Susan Pompa MD Primary Care Provider Active Start: February 12, 2025 Dr. Denys Carson MD Attending Provider Active Start: February 12, 2025 Dr. Denys Carson MD Referring Provider Active Start: February 12, 2025 Dr. Denys Carson MD Other Provider Active Start: February 12, 2025 Team Status: Inactive Member Role/Relationship Status Dates Dr. Susan Pompa MD Primary Care Provider Active Start: March 02, 2025 End: March 02, 2025 Dr. Susan Pompa MD Referring Provider Active Start: March 02, 2025 End: March 02, 2025 Dr. Denys Carson MD Attending Provider Active Start: March 02, 2025 End: March 02, 2025 Team Status: Inactive Member Role/Relationship Status Dates Dr. Susan Pompa MD Primary Care Provider Active Start: March 27, 2025 End: March 27, 2025 LUCIA Borrego Attending Provider Active St art: March 27, 2025 End: March 27, 2025 LUCIA Borrego Referring Provider Active St art: March 27, 2025 End: March 27, 2025 Team Status: Inactive Member Role/Relationship Status Dates Dr. Susan Pompa MD Primary Care Provider Active Start: March 28, 2025 End: March 28, 2025 Dr. Denys Carson MD Attending Provider Active Start: March 28, 2025 End: March 28, 2025 Dr. Denys Carson MD Referring Provider Active Start: March 28, 2025 End: March 28, 2025 Team Status: Active Member Role/Relationship Status Dates Dr. Susan Pompa MD Primary Care Provider Active Start: March 28, 2025 Dr. Denys Carson MD Attending Provider Active Start: March 28, 2025 Dr. Denys Carson MD Referring Provider Active Start: March 28, 2025 Dr. Denys Carson MD Other Provider Active Start: March 28, 2025 Team Status: Inactive Member Role/Relationship Status Dates Dr. Susan Pompa MD Primary Care Provider Active Start: April 11, 2025 End: April 11, 2025 Dr. Susan Pompa MD Referring Provider Active Start: April 11, 2025 End: April 11, 2025 Dr. Denys Carson MD Attending Provider Active Start: April 11, 2025 End: April 11, 2025 Team Status: Inactive Member Role/Relationship Status Dates Dr. Susan Pompa MD Primary Care Provider Active Start: April 23, 2025 End: April 23, 2025 LUCIA Borrego Attending Provider Active St art: April 23, 2025 End: April 23, 2025 LUCIA Borrego Referring Provider Active St art: April 23, 2025 End: April 23, 2025 Team Status: Inactive Member Role/Relationship Status Dates Dr. Susan Pompa MD Primary Care Provider Active Start: May 25, 2025 End: May 25, 2025 Dr. Susan Pompa MD Referring Provider Active Start: May 25, 2025 End: May 25, 2025 Dr. Leanne Red DO Attending Provider Activ e Start: May 25, 2025 End: May 25, 2025 Team Status: Inactive Member Role/Relationship Status Dates Dr. Susan Pompa MD Primary Care Provider Active Start: May 25, 2025 End: May 25, 2025 Dr. Leanne Red DO Attending Provider Activ e Start: May 25, 2025 End: May 25, 2025 Dr. Leanne Red DO Referring Provider Activ e Start: May 25, 2025 End: May 25, 2025 Team Status: Inactive Member Role/Relationship Status Dates Dr. Susan Pompa MD Primary Care Provider Active Start: March 02, 2025 End: March 02, 2025 Dr. Susan Pompa MD Referring Provider Active Start: March 02, 2025 End: March 02, 2025 Dr. Denys Carson MD Attending Provider Active Start: March 02, 2025 End: March 02, 2025 Team Status: Inactive Member Role/Relationship Status Dates Dr. Susan Pompa MD Primary Care Provider Active Start: March 27, 2025 End: March 27, 2025 LUCIA Borrego Attending Provider Active St art: March 27, 2025 End: March 27, 2025 LUCIA Borrego Referring Provider Active St art: March 27, 2025 End: March 27, 2025 Team Status: Inactive Member Role/Relationship Status Dates Dr. Suasn Pompa MD Primary Care Provider Active Start: March 28, 2025 End: March 28, 2025 Dr. Denys Carson MD Attending Provider Active Start: March 28, 2025 End: March 28, 2025 Dr. Denys Carson MD Referring Provider Active Start: March 28, 2025 End: March 28, 2025 Team Status: Active Member Role/Relationship Status Dates Dr. Susan Pompa MD Primary Care Provider Active Start: March 28, 2025 Dr. Denys Carson MD Attending Provider Active Start: March 28, 2025 Dr. Denys Carson MD Referring Provider Active Start: March 28, 2025 Dr. Denys Carson MD Other Provider Active Start: March 28, 2025 Team Status: Inactive Member Role/Relationship Status Dates Dr. Susan Pompa MD Primary Care Provider Active Start: April 11, 2025 End: April 11, 2025 Dr. Susan Pompa MD Referring Provider Active Start: April 11, 2025 End: April 11, 2025 Dr. Denys Carson MD Attending Provider Active Start: April 11, 2025 End: April 11, 2025 Team Status: Inactive Member Role/Relationship Status Dates Dr. Susan Pompa MD Primary Care Provider Active Start: April 23, 2025 End: April 23, 2025 LUCIA Borrego Attending Provider Active St art: April 23, 2025 End: April 23, 2025 LUCIA Borrego Referring Provider Active St art: April 23, 2025 End: April 23, 2025 Team Status: Inactive Member Role/Relationship Status Dates Dr. Susan Pompa MD Primary Care Provider Active Start: May 25, 2025 End: May 25, 2025 Dr. Susan Pompa MD Referring Provider Active Start: May 25, 2025 End: May 25, 2025 Dr. Leanne Red DO Attending Provider Activ e Start: May 25, 2025 End: May 25, 2025 Team Status: Inactive Member Role/Relationship Status Dates Dr. Susan Pompa MD Primary Care Provider Active Start: May 25, 2025 End: May 25, 2025 Dr. Leanne Red DO Attending Provider Activ e Start: May 25, 2025 End: May 25, 2025 Dr. Leanne Red DO Referring Provider Activ e Start: May 25, 2025 End: May 25, 2025 Team Status: Inactive Member Role/Relationship Status Dates Dr. Susan Pompa MD Primary Care Provider Active Start: June 25, 2025 End: June 25, 2025 Dr. Leanne Red DO Attending Provider Activ e Start: June 25, 2025 End: June 25, 2025 Dr. Leanne Red DO Referring Provider Activ e Start: June 25, 2025 End: June 25, 2025 Team Status: Active Member Role/Relationship Status Dates Dr. Susan Pompa MD Primary care physician Active Team Status: Inactive Member Role/Relationship Status Dates Dr. Susan Pompa MD Primary care physician Active Start: March 27, 2025 End: March 27, 2025 LUCIA Borrego Attending physician Active S tart: March 27, 2025 End: March 27, 2025 LUCIA Borrego Referring Provider Active St art: March 27, 2025 End: March 27, 2025 Team Status: Inactive Member Role/Relationship Status Dates Dr. Susan Pompa MD Primary care physician Active Start: March 28, 2025 End: March 28, 2025 Dr. Denys Carson MD Attending physician Active Start: March 28, 2025 End: March 28, 2025 Dr. Denys Carson MD Referring Provider Active Start: March 28, 2025 End: March 28, 2025 Team Status: Active Member Role/Relationship Status Dates Dr. Susan Pompa MD Primary care physician Active Start: March 28, 2025 Dr. Denys Carson MD Attending physician Active Start: March 28, 2025 Dr. Denys Carson MD Referring Provider Active Start: March 28, 2025 Dr. Denys Carson MD Nurse Practitioner Active Start: March 28, 2025 Team Status: Inactive Member Role/Relationship Status Dates Dr. Susan Pompa MD Primary care physician Active Start: April 11, 2025 End: April 11, 2025 Dr. Susan Pompa MD Referring Provider Active Start: April 11, 2025 End: April 11, 2025 Dr. Denys Carson MD Attending physician Active Start: April 11, 2025 End: April 11, 2025 Team Status: Inactive Member Role/Relationship Status Dates Dr. Susan Pompa MD Primary care physician Active Start: April 23, 2025 End: April 23, 2025 LUCIA Borrego Attending physician Active S tart: April 23, 2025 End: April 23, 2025 LUCIA Borrego Referring Provider Active St art: April 23, 2025 End: April 23, 2025 Team Status: Inactive Member Role/Relationship Status Dates Dr. Susan Pompa MD Primary care physician Active Start: May 25, 2025 End: May 25, 2025 Dr. Susan Pompa MD Referring Provider Active Start: May 25, 2025 End: May 25, 2025 Dr. Leanne Red DO Attending physician Acti ve Start: May 25, 2025 End: May 25, 2025 Team Status: Inactive Member Role/Relationship Status Dates Dr. Susan Pompa MD Primary care physician Active Start: May 25, 2025 End: May 25, 2025 Dr. Leanne Red DO Attending physician Acti ve Start: May 25, 2025 End: May 25, 2025 Dr. Leanne Red DO Referring Provider Activ e Start: May 25, 2025 End: May 25, 2025 Team Status: Inactive Member Role/Relationship Status Dates Dr. Susan Pompa MD Primary care physician Active Start: June 25, 2025 End: June 25, 2025 Dr. Leanne Red DO Attending physician Active Start: June End: June 25, 2025 Dr. Leanne Red DO Referring Provider Active Start: June End: June 25, 2025 Team Status: Inactive Member Role/Relationship Status Dates Dr. Susan Pompa MD Primary care physician Active Start: July 23, 2025 End: July 23, 2025 Dr. Susan Pompa MD Referring Provider Active Start: July 23, 2025 End: July 23, 2025 Dr. Leanne Red DO Attending physician Acti ve Start: July 23, 2025 End: July 23, 2025 Team Status: Active Member Role/Relationship Status Dates Dr. Susan Pompa MD Primary care physician Active Start: July 23, 2025 Dr. Leanne Red DO Attending physician Acti ve Start: July 23, 2025 Team Status: Inactive Member Role/Relationship Status Dates Dr. Susan Pompa MD Primary care physician Active Start: April 23, 2025 End: April 23, 2025 LUCIA Borrego Attending physician Active S tart: April 23, 2025 End: April 23, 2025 LUCIA Borrego Referring Provider Active St art: April 23, 2025 End: April 23, 2025 Team Status: Inactive Member Role/Relationship Status Dates Dr. Susan Pompa MD Primary care physician Active Start: May 25, 2025 End: May 25, 2025 Dr. Susan Pompa MD Referring Provider Active Start: May 25, 2025 End: May 25, 2025 Dr. Leanne Red DO Attending physician Acti ve Start: May 25, 2025 End: May 25, 2025 Team Status: Inactive Member Role/Relationship Status Dates Dr. Susan Pompa MD Primary care physician Active Start: May 25, 2025 End: May 25, 2025 Dr. Leanne Red DO Attending physician Acti ve Start: May 25, 2025 End: May 25, 2025 Dr. Leanne Red DO Referring Provider Activ e Start: May 25, 2025 End: May 25, 2025 Team Status: Inactive Member Role/Relationship Status Dates Dr. Susan Pompa MD Primary care physician Active Start: June 25, 2025 End: June 25, 2025 Dr. Leanne Red DO Attending physician Active Start: June End: June 25, 2025 Dr. Leanne Red DO Referring Provider Active Start: June End: June 25, 2025 Team Status: Inactive Member Role/Relationship Status Dates Dr. Susan Pompa MD Primary care physician Active Start: July 23, 2025 End: July 23, 2025 Dr. Susan Pompa MD Referring Provider Active Start: July 23, 2025 End: July 23, 2025 Dr. Leanne Red DO Attending physician Acti ve Start: July 23, 2025 End: July 23, 2025 Team Status: Inactive Member Role/Relationship Status Dates Dr. Susan Pompa MD Primary care physician Active Start: July 23, 2025 End: July 23, 2025 Dr. Leanne Red DO Attending physician Acti ve Start: July 23, 2025 End: July 23, 2025 Goals (unrecognized section and content) Goals may be documented in a n alternate sectionGoals may be documented in an alternate sectionGoals may be documented in an alternate sectionGoals may be documented in an alternate sectionGoals may be documented in an alternate section INFORMATION SOURCE (unrecogn ized section and content) DATE CREATED AUTHOR 08/27/2025 [facility] FOR RECORDS PERTAINING TO PATIENTS WHO ARE OR HAVE BEEN ENROLLED IN A CHEMICAL DEPENDENCY/SUBSTANCEABUSE PROGRAM, SOME INFORMATION MAY BE OMITTED. This clinical summary was aggregated from multiple sources. Caution should be exercised in using it in the provision of clinical care. This summary normalizes information from multiple sources, and as a consequence, information in this document may materially change the coding, format and clinical context of patient data. In addition, data may be omitted in some cases. CLINICAL DECISIONS SHOULD BE BASED ON THE PRIMARY CLINICAL RECORDS. [facility]. provides no warranty or guarantee of the accuracy or completeness of information in this document.
--- NOTE | 2025-08-28 12:15 | EMB_PTH ---
PATIENT: DELILAH GORDON [place] [facility][id number] AGE/SX: 54/F ROOM: RE08/28/[address]: Dr. Leanne Red DO : 1970 BED: DIS: 08/28/2025 SPEC #: [id number] RECD: 08/28/25 14:22 STATUS: FIGUEROA SCOTTIE #: [id number] MENDOZA: 08/28/25 12:[address]: Leanne Red DEPT: SURGICAL PATHOLOGY RECD BY: Kulwant Ellison ENTERED: 08/28/25 15:06 SP TYPE: ENDOM BX/C RUI DR: Dr. Susan Pompa MD Tissues: A - Endometrium, NOS B - Ovary, NOS Procedures: Surgery Specimen Level IV Surgery Specimen Level V HEADER OPERATION: Laparoscopic, oophorectomy, endometrial biopsy PRE-OP DIAGNOSIS: Prolapse of female pelvic organs, ovarian cyst TISSUE SUBMITTED: A- Endometrial curettings, B- Right ovary MICROSCOPIC DIAGNOSIS A. Endometrium, curettage: - Scant endometrium consistent with atrophy/lower uterine segment - see note. - Scant endocervical mucosa. Note: A limited amount of superficial endometrial tissue is present. Clinical correlation is necessary to assess the adequacy of the sampling. B. Right ovary, laparoscopic oophorectomy: - Serous cystadenoma. MICROSCOPIC DESCRIPTION Slides are reviewed. GROSS DESCRIPTION Received in 2 formalin containers labeled with the patient's name and date of . Designated as: A. Endometrial curettings is a 2.1 x 0.9 x 0.1 cm aggregate of mucoid material and red flecks of apparent tissue. Entirely submitted in 1 cassette. B. Right ovary is a 37.1 g, 7.6 x 5.2 x 1.7 cm maldonado-pink to red, deflated cyst. Opening reveals minimal blood-tinged serous fluid. The cyst wall is pink-xiao, edematous, glistening and slightly wrinkled with additional cystic spaces containing straw-colored fluid. Definitive excrescences are not grossly identified. Sectioning reveals a soft and somewhat edematous, lobulated area of apparent ovarian parenchyma. Plant Guide sections are submitted in 4 cassettes, to include the apparent ovarian parenchyma in cassette B1. MA 08/28/2025 CPT:94741,61048
--- NOTE | 2025-08-28 12:40 | DCINST_ITS ---
Discharge Instructions DC O2, CPAP, BIPAP needs Home O2 Discharge instructions: No Dressing / Incision Discharge Activity: Return to Normal Activity, May Not Drive (for two weeks or while taking narcotic pain medications.), May Shower and May Take a Tub Bath (in 7 days) May resume sexual activity in: 1 week Weight Bearing Status: Full weight bearing Dressing / Incision Call your doctor if you observe: Using more than 1 pad per hour, Shortness of breath, Chest pain and Uncontrolled pain Suture Line Care: Avoid Pulling/Pushing and Avoid Pinching/Bending Remove Dressing in: 1 week (if present) Cleanse incision/area with: Soap & Water and Keep Dressing Clean & Dry Follow Up Care Please Follow Up With: Leanne Red DO When: Call to make an appointment with your doctor for a follow up incision check in 1-2 weeks. Test Results: Test results from this visit will be discussed in further detail at your follow- up appointment, if applicable. Discharge Plan Admission Primary Reason for Your Visit: laparoscopic removal of ovary Attending Provider: Leanne Red Primary Care Provider: Susan Pompa Instructions Print Language: Marshallese Discharge Orders/Prescriptions Prescriptions: New oxycodone-acetaminophen [Percocet] 5-325 mg tablet 1 tab PO Q4H PRN (Reason: pain) 7 Days Qty: 6 0RF ibuprofen 800 mg tablet 800 mg PO Q8H PRN (Reason: pain) Qty: 20 0RF Continued magnesium 200 mg tablet 200 mg PO QDAY loratadine [Claritin] 10 mg tablet 10 mg PO DAILY PRN PRN (Reason: allergy symptoms) cyanocobalamin-liver extract Tablet 3 tab PO QWEEK Other Ambulatory Orders: 12 Lead EKG (Routine) Location: None Selected Ordered By: Dr. Alpesh Dunbar Referrals / Follow Up: Susan Pompa MD [Primary Care Provider, Family Practice] Disposition Disposition (needs filled in before D/C Order can be placed): Home, Self Care
[2025-08-28] MEDS: Midazolam 2 MG/2 ML Syringe IV (13:12)
[2025-08-28] MEDS: Lidocaine 1% (5 ml sdv) 5 ML Vial 8 ML IV (13:17)
[2025-08-28] MEDS: fentaNYL 100 MCG/2 ML Ampul IV (13:27)
--- NOTE | 2025-08-28 13:55 | PCM.OPRPT ---
Multi Select Codes Urinary/Genital Urinary/Genital CPT Codes: 71229-25 LAPARO REMOVE ADNEXA BILAT and Other Procedure See Report (dilation and curettage ) Operative Report (Standard) Operative Information Date of Procedure: 08/28/25 Pre-Operative Diagnosis: large right ovarian cyst, mildly thickened endometrium postmenopausal Post-Operative Diagnosis: large right ovarian cyst, mildly thickened endometrium postmenopausal Surgery/Procedure Performed: dilation and curettage, laparoscopic right oophorectomy lead former: Yes Public Health Advisor: Kalyan Rojas Tasks completed by travel assistant: Closing and Other (holding camera and assisting with passing specimen into endocatch bag ) Additional assistant kitchen manager?: No Type of Anesthesia: General RN Documented Start/Stop Times: Operation Date: 08/28/25 12:15 Case Time Into Pre-Op 08/28/25 10:31 Out of Pre-Op 08/28/25 13:05 Anesthesia Start 08/28/25 13:12 Into Room 08/28/25 13:12 Procedure Start 08/28/25 13:36 Procedure Start Time: 13:36 Procedure Stop Time: 14:00 Select all DRAINS/GRAFTS/IMPLANTS that apply: None Estimated Blood Loss: 3cc Specimen collected: Yes Description of specimen(s) removed: right ovary, endometrial curettings Description of surgery: The patient was brought to the operating room and placed in the dorsal supine position with her legs in stirrups. After general anesthesia was obtained the patient was prepped and draped in the normal sterile fashion. A weighted speculum was placed in the vagina and the anterior lip of the cervix was grasped with a single-tooth tenaculum. A gentle curettage was performed and scant bloody tissue was passed onto a Telfa and passed off for pathology analysis. Gloves were changed and attention was turned towards the abdomen and infraumbilical skin incision was made with a scalpel after half percent Marcaine injection. A 5 mm trocar was inserted into the abdomen under direct visualization using the laparoscope. CO2 gas was used to insufflate the abdomen and the patient was placed in Trendelenburg position. A left lower quadrant 5 mm trocar was inserted into the abdomen under direct visualization followed by a suprapubic 5 mm trocar. The right ovary was noted to be torsed x 2 with a large ovarian cyst present. The infundibulopelvic ligament was cauterized and cut and the ovary was removed from the ovarian ligament as well this was done using a LigaSure device. After the ovary was detached from the pelvic structures and needle aspirator was inserted into the ovary and 230 cc of clear yellow fluid was removed. The ovary was passed into a 5 mm Endo Catch bag and removed through the laparoscopic trocar site on the right lower quadrant. This was performed by spreading the tissue using a Kemi clamp and extending the incision slightly. The bag and its contents were removed from the abdomen and passed off for pathology analysis. Hemostasis was noted at all operative sites. The fascia was closed using a Noah Velasquez suture closure device and 0 Vicryl suture. The other trocars were opened and CO2 gas to escape from the abdomen and then removed. The incisions were closed with a 4-0 Monocryl subcuticular stitch. The patient tolerated the procedure well sponge lap needle counts were correct x 2 and she is now being brought to the recovery room in stable condition Surgical Findings: normal appearing uterus, left ovarian simple cyst. Otherwise normal appearing ovaries. Complications Complications: No Admit VTE Documentation VTE Present on Admission: No VTE Mechan Device Prophylaxis: SCD's VTE Pharm Prophylaxis ordered?: No
--- NOTE | 2025-08-28 14:12 | PCM.POST.ANE ---
Anesthesia: Postop Eval I Current Vital Signs Temperature: 97.6 F Pulse Rate: 70 Blood Pressure: 167/93 Respiratory Rate: 16 Pulse Ox: 98 Assessment Airway patent: Yes Spontaneous unlabored respirations: Yes nausea: No Vomiting: No Anesthesia Complication: No Fluid Hydration Crystalloid volume administer (ml): 800 Total IV fluid infused: 800 Progress Note Anesthesia document: Postop Eval 1 completed: Yes
--- NOTE | 2025-08-28 15:38 | POSTOPAN2_ITS ---
Anesthesia Postop Eval I Sum Postop Eval Completion status Anesthesia document: Postop Eval 1 completed: Yes Anesthesia Postop Eval I Summary Anesthesia Postop Eval I Summary: Anesthesia Postop Eval I: Assessment Summary Airway patent Yes 08/28/25 14:12 [email or web address] Spontaneous unlabored Yes 08/28/25 14:12 [email or web address] respirations Mental status nausea No 08/28/25 14:12 [email or web address] Vomiting No 08/28/25 14:12 [email or web address] Anesthesia Postop Eval I: Fluid Summary Crystalloid volume administer 800 08/28/25 14:12 [email or web address] (ml) Colloids volume administered ( ml) Blood Product volume administered (ml) Total IV fluid infused 800 08/28/25 14:12 [email or web address] Anesthesia Postop Eval I: Summary Notes Anesthesia Complication No 08/28/25 14:12 [email or web address] Anesthesia Complication Comment: Post-operative progress note Anesthesia: Postop Eval II Evaluation Mental status: Awake Pain Level: 0 nausea: No Vomiting: No Complications Anesthesia Complication: No
--- NOTE | 2025-08-28 15:38 | PCM.POSTANE2 ---
Anesthesia Postop Eval I Sum Postop Eval Completion status Anesthesia document: Postop Eval 1 completed: Yes Anesthesia Postop Eval I Summary Anesthesia Postop Eval I Summary: Anesthesia Postop Eval I: Assessment Summary Airway patent Yes 08/28/25 14:12 [email or web address] Spontaneous unlabored Yes 08/28/25 14:12 [email or web address] respirations Mental status nausea No 08/28/25 14:12 [email or web address] Vomiting No 08/28/25 14:12 [email or web address] Anesthesia Postop Eval I: Fluid Summary Crystalloid volume administer 800 08/28/25 14:12 [email or web address] (ml) Colloids volume administered ( ml) Blood Product volume administered (ml) Total IV fluid infused 800 08/28/25 14:12 [email or web address] Anesthesia Postop Eval I: Summary Notes Anesthesia Complication No 08/28/25 14:12 [email or web address] Anesthesia Complication Comment: Post-operative progress note Anesthesia: Postop Eval II Evaluation Mental status: Awake Pain Level: 0 nausea: No Vomiting: No Complications Anesthesia Complication: No
[2025-08-28] MEDS: HYDROcodone Bitartrate/Apap 5/325 Tablet PO (16:01)
== END 2025-08-28 16:46 | disposition home or self-care (01) ==
LOC: SDC 10:26 → AC 10:28
PROVIDERS: PCP Family Medicine; Referring Provider Obstetrics & Gynecology; Visit Provider Obstetrics & Gynecology
PROC: (CPT 58720; principal; 2025-08-28 12:00)
DX: D27.0 Benign neoplasm of right ovary (principal); D64.9 Anemia, unspecified; K21.9 Gastro-esophageal reflux disease without esophagitis; N85.8 Other specified noninflammatory disorders of uterus
CPT/HCPCS: 58661; 00840; 36415; 85027; 86850; 86900; 86901; 88305; 88307; 93005; J2405